=== PATIENT | female | born 1955 | race Caucasian/White ===

== ENCOUNTER 2020-04-06 10:06 | Outpatient (REF) | payer MEDICARE, SELFPAY ==
[2020-04-06 11:14] LABS: MANUAL DIFF FLAG NO
[2020-04-06 11:26] LABS: Estimated Average Glucose 114 mg/dL; Hemoglobin A1c % 5.6 %
[2020-04-06 11:32] LABS: Basophils Percent Auto 0.4 % (0-2); Eosinophils Absolute Auto 0.2 X10*3/uL (0.0-0.4); Eosinophils Percent Auto 2.2 % (0-4); Hematocrit 38.2 % (37-47); Hemoglobin 12.1 g/dl (12.0-16.0); INTERNATIONAL NORM RATIO 1.8 (0.9-1.1); Imm Gran Abs Auto 0.02 X10*3/uL (0.00-0.03); Imm Gran Pct Auto 0.3 % (0.0-0.4); Mean Corpuscular HGB Conc 31.7 g/dl (31.0-35.0); Mean Corpuscular Hemoglobin 26.9 pg (27.0-33.0); Mean Corpuscular Volume 85.1 fL (80-98); Mean Platelet Volume 9.8 fL (9.4-12.3); Monocytes Absolute Auto 0.6 X10*3/uL (0.1-1.2); Monocytes Percent Auto 8.2 % (2-11); Neutrophils Absolute Auto 4.5 X10*3/uL (2.0-8.3); Neutrophils Percent Auto 61.9 % (45-73); Platelet Count 321 X10*3/uL (160-400); Prothrombin Time 21.7 SEC (10.8-13.0); Red Blood Count 4.49 X10*6/uL (4.20-5.50); Red Cell Distribution Width 14.2 % (11.0-16.0); White Blood Count 7.3 X10*3/uL (4.8-10.8)
[2020-04-06 11:44] LABS: Alanine Aminotransferase 19 U/L (0-31); Alkaline Phosphatase 107 U/L (39-117); Anion Gap 13 (12-20); Aspartate Amino Transferase 20 U/L (5-31); Bilirubin Total 0.7 mg/dL (0.0-1.0); Blood Urea Nitrogen 16 mg/dL (9-16); Calcium 8.7 mg/dL (8.4-10.2); Carbon Dioxide 28 mmol/L (22-29); Chloride 106 mmol/L (96-108); Cholesterol 192 mg/dL; Estimated Glomerular Filt Rate > 60; Glucose Fasting 111 mg/dL (60-99); HDL Cholesterol 57 mg/dL; LDL Cholesterol Calculated 101 mg/dl; Sodium 143 mmol/L (135-145); Total Protein 7.2 g/dL (6.5-8.0); Triglycerides 172 mg/dL
[2020-04-06 11:56] LABS: Thyroid Stimulating Hormone 0.62 mIU/mL (0.32-4.0)
[2020-04-07 20:32] LABS: Calcium (PTHI) 8.7 mg/dL (8.6-10.4); PTHI 74 pg/mL (14-64)
[2020-04-12 12:52] LABS: Vitamin D 25-OH, D2 <4 ng/mL; Vitamin D 25-OH, D3 34 ng/mL; Vitamin D 25-OH, Total 34 ng/mL (30-100)
== END 2020-04-06 10:07 | disposition home or self-care (01) ==
LOC: HO.HMGCLDS 10:06
PROVIDERS: PCP Internal Medicine; Visit Provider Internal Medicine
DX: Z00.00 Encounter for general adult medical examination without abnormal findings (principal); R73.9 Hyperglycemia, unspecified; E21.3 Hyperparathyroidism, unspecified; I25.10 Atherosclerotic heart disease of native coronary artery without angina pectoris; E78.5 Hyperlipidemia, unspecified
CPT/HCPCS: 36415; 80053; 80061; 82306; 83036; 83970; 84443; 85025; 85610

== ENCOUNTER 2020-04-12 08:35 | Outpatient (REF) | payer MEDICARE, SELFPAY ==
--- NOTE | 2020-04-12 08:39 | MM_ITS ---
EXAMINATION: BONE DENSITOMETRY CLINICAL INDICATION: Asymptomatic menopausal state. COMPARISON: This is the patient's baseline examination. TECHNIQUE: Using a [employer] [facility] DXA System (software version: 13.1) manufactured by [employer], dual-energy x-ray absorptiometry was performed of the lumbar spine and left hip. The images are of good technical quality. Summary results are attached. FINDINGS: AP SPINE L1-L4: BMD 1.183 g/cm2, Z-score 0.5, T-score 0.0, normal. LEFT FEMUR, NECK: BMD 0.895 g/cm2, Z-score -0.3, T-score -1.0, normal. LEFT FEMUR, TOTAL: BMD 1.021 g/cm2, Z-score 0.5, T-score 0.1, normal. IDENTIFIED RISK FACTORS: Menopause. HISTORY OF FRACTURE: None listed. MEDICATIONS: Calcium. MM/XR DEXA axial skeleton IMPRESSION: 1. DIAGNOSIS: Normal bone density based on the lowest T-score value of -1.0 in the femoral neck applying World Health Organization criteria. 2. 10-YEAR FRACTURE RISK PREDICTION, FRAX: According to current guidelines FRAX assessment should be performed on patients in osteopenia bone density category. 3. Treatment Recommendations: NOF guidelines recommend consideration for treatment in postmenopausal women and men age 50 and older presenting with the following: -A hip or vertebral (clinical or morphometric) fracture. -T-score less than or equal to -2.5 at the femoral neck or spine after appropriate evaluation to exclude secondary causes. -Low bone mass at the hip or spine and a 10-year fracture probability by FRAX of greater than or equal to 3% for hip fracture or greater than or equal to 20% for major osteoporotic fracture based on the [place] adapted WHO algorithm. 4. Other Recommendations: All treatment decisions require clinical judgment and consideration of individual patient factors, including patient preferences, comorbidities, previous drug use, risk factors not captured in the FRAX model (e.g. frailty, falls, vitamin D deficiency, increased bone turnover, interval significant decline in bone density) and possible under or overestimation of fracture risk by FRAX. FUTURE SCAN RECOMMENDATION: People with diagnosed cases of osteoporosis or at high risk for fracture should have regular bone mineral density tests. For patients eligible for Medicare, routine testing is allowed once every 2 years. The testing frequency can be increased to one year for patients who have rapidly progressing disease, those who are receiving or discontinuing medical therapy to restore bone mass, or have additional risk factors.
== END 2020-04-12 08:36 | disposition home or self-care (01) ==
LOC: HO.MAMMO 08:35
PROVIDERS: PCP Internal Medicine; Visit Provider Internal Medicine
DX: Z78.0 Asymptomatic menopausal state (principal)
CPT/HCPCS: 77080

== ENCOUNTER 2020-04-20 10:45 | Outpatient (REF) | payer MEDICARE, SELFPAY ==
[2020-04-20 14:57] LABS: INTERNATIONAL NORM RATIO 1.9 (0.9-1.1); Prothrombin Time 22.9 SEC (10.8-13.0)
== END 2020-04-20 10:46 | disposition home or self-care (01) ==
LOC: HO.HMGCLDS 10:45
PROVIDERS: PCP Internal Medicine; Visit Provider Internal Medicine
DX: Z13.9 Encounter for screening, unspecified (principal)
CPT/HCPCS: 36415; 85610

== ENCOUNTER → 2020-04-25 12:40 | Outpatient (BNVA) | payer MEDICARE, SELFPAY | PROVIDERS: PCP Internal Medicine; Visit Provider Internal Medicine Cardiovascular Disease | DX: I25.10 Atherosclerotic heart disease of native coronary artery without angina pectoris (principal); E21.3 Hyperparathyroidism, unspecified; R73.9 Hyperglycemia, unspecified; Z79.01 Long term (current) use of anticoagulants; Z79.82 Long term (current) use of aspirin; Z79.899 Other long term (current) drug therapy; Z95.2 Presence of prosthetic heart valve; Z95.5 Presence of coronary angioplasty implant and graft | CPT/HCPCS: 93005; 99202 ==

== ENCOUNTER → 2020-05-11 12:48 | Outpatient (REF) | payer MEDICARE, SELFPAY ==
--- NOTE | 2020-05-11 12:50 | CA_ITS ---
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 Normal LV systolic function with mild LVH with impaired relaxation filling pattern and increase filling pressures 2. At least moderately dilated left atrium 3. Mechanical aortic valve in place with elevated mean gradient of 31 mm of mercury suggestive of patient prosthesis mismatch 4. Severe mitral annular calcification with possible mild mitral stenosis 5. [id number] elevation of right ventricular systolic pressure 6. No pericardial effusion Findings Left Ventricle Normal left ventricular size and systolic function. There is mildly increased left ventricular wall thickness. The visually estimated ejection fraction is between 65-70%. Spectral Doppler is indicative of an impaired relaxation filling pattern. Elevated filling pressures. Right Ventricle Normal right ventricular cavity size and systolic function. Atria The left atrium is moderately dilated. There is lipomatous hypertrophy of the interatrial septum. There is no evidence of interatrial shunt. The right atrium is mildly dilated. Aortic Valve A mechanical prosthetic aortic valve is present. The prosthetic aortic valve appears to be functioning abnormally. The peak aortic gradient is 49 mmHg.The mean gradient is 31 mmHg. There is no aortic valve regurgitation. the mechanical valve in aortic position is well seated without abnormal rocking motion. Leaflets are not well visualized. The aortic ejection time is within normal limits, with increased mean gradient across aortic valve 31 mm Hg is consistent with patient prosthesis mismatch Mitral Valve There is moderate anterior and severe posterior mitral leaflet thickening. There is severe mitral annular calcification. There is trace mitral valve regurgitation. Mild mitral stenosis cannot be entirely ruled out Tricuspid Valve Normal tricuspid valve structure. There is mild to moderate tricuspid valve regurgitation. Normal right atrial pressure. Mild to moderate pulmonary hypertension is present. Great Vessels All visible segments of the aorta are normal in size. The pulmonary artery was not well visualized. Venous The inferior vena cava is normal in size and collapses greater than 50% with inspiration. Pericardium/Pleural There is no evidence of pericardial effusion. Prior Study Comparison No prior study available for comparison. Measurements 2D Linear Measurements IVSd: 1.17 0.6-0.9/0.6-1.0 cm LVIDd: 4.61 3.9-5.3/4.2-5.9 cm LVIDd Index: 2.15 2.4-3.2/2.2-3.1 cm/m2 LVIDs: 2.66 2.0-3.6 cm LVPWd: 1.25 0.7-1.1 cm LA Diam: 4.90 2.7-3.8/3.0-4.0 cm LAIDs Index: 2.29 1.5-2.3 cm/m2 LV Mass: 259.44 67-162/88-224 g LV Mass Index: 121.23 43-95/49-115 g/m2 LVOT Diam: 1.90 3.0+(-)1.3 cm 2D Systolic Function EF 4C: 62.10 >55% EF 2C: 73.60 >55% EF BiP: 69.00 >55% Mitral Valve MV VTI: 0.52 MV Pk Binu: 1.61 MV Mn Binu: 0.95 MV Pk Grad: 10.00 MV Mn Grad: 4.00 MV Pk E: 1.41 MV PK A: 1.49 MV Decel Time: 462.00 E/A: 0.90 E'Lateral: 5.33 E'Medial: 5.66 E/E' Med: 24.90 E/E' Lat: 26.50 PHT: 118.00 MVA PHT: 1.86 MVA Continuity: 1.86 Decel [place]: 3.39 Aortic Valve AoV Pk Binu: 3.50 AoV Mn Binu: 2.58 AoV VTI: 0.91 AoV Pk Grad: 49.00 Aov Mn Grad: 31.00 WILLI Cont.VTI: 1.07 LVOT LVOT Pk Binu: 1.38 LVOT Mn Binu: 0.99 LVOT VTI: 0.34 LVOT Pk Grad: 8.00 LVOT Mn Grad: 4.00 LVOT Diam: 1.90 LVOT Area: 2.84 Diastolic Function MV Pk E: 1.41 MV Pk A: 1.49 E/A: 0.90 E'Medial: 5.66 E/E' Med: 24.90 E' Laterial: 5.33 E/E' Lat: 26.50 Tricuspid Valve TR Pk Binu: 3.28 TR Pk Grad: 43.00 RA Press: 3.00 RVSP: 46.00 Great Vessels Aorta Ao Asc: 3.00 2.1-3.4 cm Ao Arch: 3.10 Updated in Other Vendor System with Status of Final Carlos Salazar MD electronically signed on 05/11/2020 5:54:38 PM with status of Final
== END ==
LOC: HO.CARD 12:48
PROVIDERS: Visit Provider Internal Medicine Cardiovascular Disease
DX: Z95.2 Presence of prosthetic heart valve (principal)
CPT/HCPCS: 85610; 93306; 99201; Q9957

== ENCOUNTER → 2020-05-16 14:13 | Outpatient (BNVA) | payer MEDICARE, SELFPAY | PROVIDERS: PCP Internal Medicine; Visit Provider Internal Medicine | DX: Z95.2 Presence of prosthetic heart valve (principal); Z51.81 Encounter for therapeutic drug level monitoring; Z79.01 Long term (current) use of anticoagulants | CPT/HCPCS: 85610; 99211 ==

== ENCOUNTER → 2020-05-23 08:48 | Outpatient (BNVA) | payer MEDICARE, SELFPAY | PROVIDERS: PCP Internal Medicine; Visit Provider Internal Medicine | DX: Z95.2 Presence of prosthetic heart valve (principal); Z51.81 Encounter for therapeutic drug level monitoring; Z79.01 Long term (current) use of anticoagulants | CPT/HCPCS: 85610; 99211 ==

== ENCOUNTER → 2020-05-31 09:35 | Outpatient (BNVA) | payer MEDICARE, SELFPAY | PROVIDERS: PCP Internal Medicine; Visit Provider Internal Medicine | DX: Z95.2 Presence of prosthetic heart valve (principal); Z79.01 Long term (current) use of anticoagulants; Z51.81 Encounter for therapeutic drug level monitoring | CPT/HCPCS: 85610; 99211 ==

== ENCOUNTER → 2020-06-14 09:37 | Outpatient (BNVA) | payer MEDICARE, SELFPAY | PROVIDERS: PCP Internal Medicine; Visit Provider Internal Medicine | DX: Z95.2 Presence of prosthetic heart valve (principal); Z51.81 Encounter for therapeutic drug level monitoring; Z79.01 Long term (current) use of anticoagulants | CPT/HCPCS: 85610; 99211 ==

== ENCOUNTER → 2020-06-29 09:57 | Outpatient (BNVA) | payer MEDICARE, SELFPAY | PROVIDERS: PCP Internal Medicine; Visit Provider Internal Medicine | DX: Z95.2 Presence of prosthetic heart valve (principal); Z51.81 Encounter for therapeutic drug level monitoring; Z79.01 Long term (current) use of anticoagulants | CPT/HCPCS: 85610; 99211 ==

== ENCOUNTER → 2020-07-13 09:43 | Outpatient (BNVA) | payer MEDICARE, SELFPAY | PROVIDERS: PCP Internal Medicine; Visit Provider Internal Medicine | DX: Z95.2 Presence of prosthetic heart valve (principal); Z51.81 Encounter for therapeutic drug level monitoring; Z79.01 Long term (current) use of anticoagulants | CPT/HCPCS: 85610; 99211 ==

== ENCOUNTER → 2020-07-27 10:13 | Outpatient (BNVA) | payer MEDICARE, SELFPAY | PROVIDERS: PCP Internal Medicine; Visit Provider Internal Medicine | DX: Z95.2 Presence of prosthetic heart valve (principal); Z51.81 Encounter for therapeutic drug level monitoring; Z79.01 Long term (current) use of anticoagulants | CPT/HCPCS: 85610; 99211 ==

== ENCOUNTER → 2020-08-17 09:50 | Outpatient (BNVA) | payer MEDICARE, SELFPAY | PROVIDERS: PCP Internal Medicine; Visit Provider Internal Medicine | DX: Z95.2 Presence of prosthetic heart valve (principal); Z51.81 Encounter for therapeutic drug level monitoring; Z79.01 Long term (current) use of anticoagulants | CPT/HCPCS: 85610; 99211 ==

== ENCOUNTER → 2020-08-31 10:31 | Outpatient (BNVA) | payer MEDICARE, SELFPAY | PROVIDERS: PCP Internal Medicine; Visit Provider Internal Medicine Cardiovascular Disease | DX: Z79.01 Long term (current) use of anticoagulants (principal); Z95.2 Presence of prosthetic heart valve; I25.10 Atherosclerotic heart disease of native coronary artery without angina pectoris | CPT/HCPCS: 99212 ==

== ENCOUNTER → 2020-09-14 09:54 | Outpatient (BNVA) | payer MEDICARE, SELFPAY | PROVIDERS: PCP Internal Medicine; Visit Provider Internal Medicine | DX: Z95.2 Presence of prosthetic heart valve (principal); Z51.81 Encounter for therapeutic drug level monitoring; Z79.01 Long term (current) use of anticoagulants | CPT/HCPCS: 85610; 99211 ==

== ENCOUNTER → 2020-10-12 09:44 | Outpatient (BNVA) | payer MEDICARE, SELFPAY | PROVIDERS: PCP Internal Medicine; Visit Provider Internal Medicine | DX: Z95.2 Presence of prosthetic heart valve (principal); Z51.81 Encounter for therapeutic drug level monitoring; Z79.01 Long term (current) use of anticoagulants | CPT/HCPCS: 85610; 99211 ==

== ENCOUNTER → 2020-11-16 09:51 | Outpatient (BNVA) | payer MEDICARE, SELFPAY | PROVIDERS: PCP Internal Medicine; Visit Provider Internal Medicine | DX: Z95.2 Presence of prosthetic heart valve (principal); Z51.81 Encounter for therapeutic drug level monitoring; Z79.01 Long term (current) use of anticoagulants | CPT/HCPCS: 85610; 99211 ==

== ENCOUNTER → 2020-11-25 09:51 | Outpatient (BNVA) | payer MEDICARE, SELFPAY | PROVIDERS: PCP Internal Medicine; Visit Provider Internal Medicine | DX: Z95.2 Presence of prosthetic heart valve (principal); Z51.81 Encounter for therapeutic drug level monitoring; Z79.01 Long term (current) use of anticoagulants | CPT/HCPCS: 85610; 99211 ==

== ENCOUNTER → 2020-12-14 09:43 | Outpatient (BNVA) | payer MEDICARE, SELFPAY | PROVIDERS: PCP Internal Medicine; Visit Provider Internal Medicine | DX: Z95.2 Presence of prosthetic heart valve (principal); Z51.81 Encounter for therapeutic drug level monitoring; Z79.01 Long term (current) use of anticoagulants | CPT/HCPCS: 85610; 99211 ==

== ENCOUNTER → 2021-01-11 09:11 | Outpatient (BNVA) | payer MEDICARE, SELFPAY | PROVIDERS: PCP Internal Medicine; Visit Provider Internal Medicine | DX: Z95.2 Presence of prosthetic heart valve (principal); Z51.81 Encounter for therapeutic drug level monitoring; Z79.01 Long term (current) use of anticoagulants | CPT/HCPCS: 85610; 99211 ==

== ENCOUNTER → 2021-01-25 09:28 | Outpatient (BNVA) | payer MEDICARE, SELFPAY | PROVIDERS: PCP Internal Medicine; Visit Provider Internal Medicine | DX: Z95.2 Presence of prosthetic heart valve (principal); Z51.81 Encounter for therapeutic drug level monitoring; Z79.01 Long term (current) use of anticoagulants | CPT/HCPCS: 85610; 99211 ==

== ENCOUNTER → 2021-02-21 09:38 | Outpatient (BNVA) | payer MEDICARE, SELFPAY | PROVIDERS: PCP Internal Medicine; Visit Provider Internal Medicine | DX: Z95.2 Presence of prosthetic heart valve (principal); Z51.81 Encounter for therapeutic drug level monitoring; Z79.01 Long term (current) use of anticoagulants | CPT/HCPCS: 85610; 99211 ==

== ENCOUNTER → 2021-03-21 09:45 | Outpatient (BNVA) | payer MEDICARE, SELFPAY | PROVIDERS: PCP Internal Medicine; Visit Provider Internal Medicine | DX: Z95.2 Presence of prosthetic heart valve (principal); Z51.81 Encounter for therapeutic drug level monitoring; Z79.01 Long term (current) use of anticoagulants | CPT/HCPCS: 85610; 99211 ==

== ENCOUNTER → 2021-04-18 09:49 | Outpatient (BNVA) | payer MEDICARE, SELFPAY | PROVIDERS: PCP Internal Medicine; Visit Provider Internal Medicine | DX: Z95.2 Presence of prosthetic heart valve (principal); Z51.81 Encounter for therapeutic drug level monitoring; Z79.01 Long term (current) use of anticoagulants | CPT/HCPCS: 85610; 99211 ==

== ENCOUNTER → 2021-05-17 09:30 | Outpatient (BNVA) | payer MEDICARE, SELFPAY | PROVIDERS: PCP Internal Medicine; Visit Provider Internal Medicine | DX: Z95.2 Presence of prosthetic heart valve (principal); Z51.81 Encounter for therapeutic drug level monitoring; Z79.01 Long term (current) use of anticoagulants | CPT/HCPCS: 85610; 99211 ==

== ENCOUNTER 2021-05-22 10:14 | Outpatient (REF) | payer MEDICARE, SELFPAY ==
[2021-05-22 12:05] LABS: Hematocrit 39.1 % (37.0-47.0); Hemoglobin 12.1 g/dl (12.0-16.0); Mean Corpuscular HGB Conc 30.9 g/dl (31.0-35.0); Mean Corpuscular Hemoglobin 26.4 pg (27.0-33.0); Mean Corpuscular Volume 85.4 fL (80.0-98.0); Mean Platelet Volume 9.4 fL (9.4-12.3); Platelet Count 281 X10*3/uL (160-400); Red Blood Count 4.58 X10*6/uL (4.20-5.50); Red Cell Distribution Width 14.2 % (11.0-16.0); White Blood Count 9.5 X10*3/uL (4.8-10.8)
== END 2021-05-22 10:15 | disposition home or self-care (01) ==
LOC: HO.LAB 10:14
PROVIDERS: PCP Internal Medicine; Referring Provider Internal Medicine; Visit Provider Internal Medicine Cardiovascular Disease
DX: R06.00 Dyspnea, unspecified (principal)
CPT/HCPCS: 36415; 85027

== ENCOUNTER → 2021-05-23 11:20 | Outpatient (REF) | payer MEDICARE, SELFPAY ==
--- NOTE | 2021-05-23 11:25 | CA_ITS ---
Transthoracic Echocardiogram Patient (Last, First, Middle): Francisca Aguero M Gender: Female Date of : 1955 Age: 65 Procedure Date: 05/23/2021 Procedure Type: Transthoracic Echocardiogram Location: OP Height: 165.1 cm Weight: 108.41 kg BSA: 2.13 m2 Heart Rate: bpm BP: 126 / 82 mmHg Crew Foreman: DSGuy Referring MD: You Prince MD Symptoms: R06.00 - Dyspnea, unspecified Conclusions: - Normal left ventricular size and systolic function. - There is moderately increased left ventricular wall thickness. - Filling pressures are indeterminate. - Normal right ventricular cavity size and systolic function. - LA is mild to moderately dilated. - A mechanical prosthetic aortic valve is present. The peak aortic velocity is 3.49 m/s. The mean gradient is 27 mmHg. The aortic valve area is 1.29 cm2. DVI 0.38, EOAi for aortic valve is 0.59. The contour of the aortic valve CW is not rounded. There is no valve dysfunction and these findings are consistent with patient prosthesis mismatch. - Mild pulmonary hypertension is present. Findings Left Ventricle Normal left ventricular size and systolic function. There is moderately increased left ventricular wall thickness. The visually estimated ejection fraction is between 55-60%. There is no evidence of regional wall motion abnormalities. Abnormal diastolic function is noted. Spectral Doppler is indicative of a pseudonormal filling pattern. Filling pressures are indeterminate. Right Ventricle Normal right ventricular cavity size and systolic function. Atria LA is mild to moderately dilated. The right atrium is normal in size. Aortic Valve A mechanical prosthetic aortic valve is present. The peak aortic velocity is 3.49 m/s. The mean gradient is 27 mmHg. The aortic valve area is 1.29 cm2. DVI 0.38, EOAi for aortic valve is 0.59. The contour of the aortic valve CW is not rounded. There is no valve dysfunction and these findings are consistent with patient prosthesis mismatch. Mitral Valve There is severe mitral annular calcification. There is mild mitral valve regurgitation. There is mild mitral valve stenosis. Pulmonic Valve Normal pulmonic valve structure and function. There is trace pulmonic valve regurgitation. Tricuspid Valve Normal tricuspid valve structure and function. There is trace tricuspid valve regurgitation. Normal right atrial pressure. Mild pulmonary hypertension is present. Great Vessels All visible segments of the aorta are normal in size. The visualized portions of the pulmonary artery and branches are normal. Venous The inferior vena cava is normal in size and collapses greater than 50% with inspiration. Pericardium/Pleural There is no evidence of pericardial effusion. Prior Study Comparison No significant change compared to prior study dated: 05/11/2020. Measurements 2D Linear Measurements IVSd: 1.30 0.6-0.9/0.6-1.0 cm LVIDd: 4.65 3.9-5.3/4.2-5.9 cm LVIDd Index: 2.18 2.4-3.2/2.2-3.1 cm/m2 LVIDs: 2.94 2.0-3.6 cm LVPWd: 1.23 0.7-1.1 cm LA Diam: 5.30 2.7-3.8/3.0-4.0 cm LAIDs Index: 2.49 1.5-2.3 cm/m2 LV Mass: 280.39 67-162/88-224 g LV Mass Index: 131.64 43-95/49-115 g/m2 LVOT Diam: 2.00 3.0+(-)1.3 cm Mitral Valve MV VTI: 0.58 MV Pk Binu: 1.68 MV Mn Binu: 1.03 MV Pk Grad: 11.00 MV Mn Grad: 5.00 MV Pk E: 1.78 MV PK A: 1.50 MV Decel Time: 297.00 E/A: 1.20 E'Lateral: 5.87 E'Medial: 4.68 E/E' Med: 38.00 E/E' Lat: 30.30 PHT: 87.00 MVA PHT: 2.53 MVA Continuity: 1.94 Decel [place]: 6.01 Aortic Valve AoV Pk Binu: 3.49 AoV Mn Binu: 2.36 AoV VTI: 0.88 AoV Pk Grad: 49.00 Aov Mn Grad: 27.00 WILLI Cont.VTI: 1.29 LVOT LVOT Pk Binu: 1.37 LVOT Mn Binu: 0.94 LVOT VTI: 0.36 LVOT Pk Grad: 8.00 LVOT Mn Grad: 4.00 LVOT Diam: 2.00 LVOT Area: 3.14 Diastolic Function MV Pk E: 1.78 MV Pk A: 1.50 E/A: 1.20 E'Medial: 4.68 E/E' Med: 38.00 E' Laterial: 5.87 E/E' Lat: 30.30 Right Ventricle TAPSE (mm): 2.07 TVS' Binu: 10.30 Tricuspid Valve TR Pk Binu: 3.00 TR Pk Grad: 36.00 RA Press: 3.00 RVSP: 40.00 Great Vessels Aorta Ao Asc: 3.10 2.1-3.4 cm Updated in Other Vendor System with Status of Final You Prince MD electronically signed on 05/24/2021 12:49:40 PM with status of Final
== END ==
LOC: HO.CARD 11:20
PROVIDERS: PCP Internal Medicine; Visit Provider Internal Medicine Cardiovascular Disease
DX: R06.00 Dyspnea, unspecified (principal); I25.10 Atherosclerotic heart disease of native coronary artery without angina pectoris; Z95.2 Presence of prosthetic heart valve
CPT/HCPCS: 93005; 93306; 99212

== ENCOUNTER 2021-05-25 10:17 | Outpatient (REF) | payer MEDICARE, SELFPAY ==
[2021-05-25 11:05] LABS: INTERNATIONAL NORM RATIO 2.7 (0.9-1.1); Prothrombin Time 30.9 SEC (9.9-13.0)
[2021-05-25 11:20] LABS: Anion Gap 13 (12-20); Blood Urea Nitrogen 18 mg/dL (9-16); Calcium 9.8 mg/dL (8.4-10.2); Carbon Dioxide 28 mmol/L (22-29); Chloride 104 mmol/L (96-108); Estimated Glomerular Filt Rate > 60; Glucose Random 108 mg/dL (60-115); Potassium 4.6 mmol/L (3.3-5.1); Sodium 140 mmol/L (135-145)
== END 2021-05-25 10:18 | disposition home or self-care (01) ==
LOC: HO.LAB 10:17
PROVIDERS: PCP Internal Medicine; Visit Provider Internal Medicine Cardiovascular Disease
DX: I20.0 Unstable angina (principal)
CPT/HCPCS: 36415; 80048; 85610

== ENCOUNTER 2021-06-07 09:42 | Outpatient (REF) | payer MEDICARE, SELFPAY ==
--- NOTE | ~2021-06-07 | XR_ITS ---
EXAMINATION: XR HIPS, BILATERAL XR SACROILIAC JOINTS CLINICAL INFORMATION: Bilateral pain. COMPARISON: None TECHNIQUE: The hips are imaged in AP and frog-lateral projections for a total of 4 views. The SI joints are imaged in 3 views. There are total of 7 views. FINDINGS: The bilateral hips show no fracture or dislocation or arthropathy. There is no joint narrowing or erosive change or chondrocalcinosis. The soft tissue planes are symmetric. The SI joints show no erosive change or ankylosis or subchondral sclerosis. There is no diastases. Mild inferior spurring is present left SI joint. There are degenerative changes lower lumbar spine with disc narrowing and asymmetric osteophyte L4-L5. There is a transitional vertebrae at lumbosacral junction with right hemisacralization and left tigre lumbarization. Lastly, findings of osteitis pubis are present with mild narrowing medial base and some chondral sclerosis both sides. XR/XR sacroiliac joint min 3V IMPRESSION: 1. Normal bilateral hips. 2. Mild spurring inferior left SI joint, otherwise unremarkable SI joints. 3. 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 Degenerative disc changes lower lumbar spine. 4. Osteitis pubis.
--- NOTE | ~2021-06-07 | XR_ITS ---
EXAMINATION: XR HIPS, BILATERAL XR SACROILIAC JOINTS CLINICAL INFORMATION: Bilateral pain. COMPARISON: None TECHNIQUE: The hips are imaged in AP and frog-lateral projections for a total of 4 views. The SI joints are imaged in 3 views. There are total of 7 views. FINDINGS: The bilateral hips show no fracture or dislocation or arthropathy. There is no joint narrowing or erosive change or chondrocalcinosis. The soft tissue planes are symmetric. The SI joints show no erosive change or ankylosis or subchondral sclerosis. There is no diastases. Mild inferior spurring is present left SI joint. There are degenerative changes lower lumbar spine with disc narrowing and asymmetric osteophyte L4-L5. There is a transitional vertebrae at lumbosacral junction with right hemisacralization and left tigre lumbarization. Lastly, findings of osteitis pubis are present with mild narrowing medial base and some chondral sclerosis both sides. XR/XR hips SOURAV min 3V IMPRESSION: 1. Normal bilateral hips. 2. Mild spurring inferior left SI joint, otherwise unremarkable SI joints. 3. 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 Degenerative disc changes lower lumbar spine. 4. Osteitis pubis.
== END 2021-06-07 09:43 | disposition home or self-care (01) ==
LOC: HO.HMGCX 09:42
PROVIDERS: Absent Provider Internal Medicine; PCP Internal Medicine; Visit Provider Internal Medicine
DX: M25.559 Pain in unspecified hip (principal); I25.10 Atherosclerotic heart disease of native coronary artery without angina pectoris; E78.5 Hyperlipidemia, unspecified; Z95.2 Presence of prosthetic heart valve; Z51.81 Encounter for therapeutic drug level monitoring; Z79.01 Long term (current) use of anticoagulants
CPT/HCPCS: 72202; 73522; 85610; 99211

== ENCOUNTER → 2021-06-14 09:42 | Outpatient (BNVA) | payer MEDICARE, SELFPAY | PROVIDERS: PCP Internal Medicine; Visit Provider Internal Medicine | DX: Z95.2 Presence of prosthetic heart valve (principal); Z51.81 Encounter for therapeutic drug level monitoring; Z79.01 Long term (current) use of anticoagulants | CPT/HCPCS: 85610; 99211 ==

== ENCOUNTER 2021-06-15 14:18 | Outpatient (REF) | payer MEDICARE, SELFPAY ==
--- NOTE | ~2021-06-15 | US_ITS ---
EXAMINATION: ULTRASOUND ARTERIAL DUPLEX UPPER EXTREMITY RIGHT CLINICAL INFORMATION: Right radial artery bruit. COMPARISON: None TECHNIQUE: Multiple 2-D grayscale and duplex Doppler sound images of the arteries of the right upper extremity were obtained. FINDINGS: Peak systolic arterial velocities are as follows: Proximal subclavian: 132 Mid subclavian: 16 Distal subclavian: 113 Axillary: 128 Proximal brachial 174 Mid brachial: 181 Distal brachial: 152 Radial: 172 Ulnar: 91 Normal arterial caliber is seen without aneurysmal dilatation. US/US arterial duplex UE RT IMPRESSION: No hemodynamically significant stenosis in the right upper extremity. No evidence for aneurysm.
== END 2021-06-15 14:19 | disposition home or self-care (01) ==
LOC: HO.US 14:18
PROVIDERS: PCP Internal Medicine; Referring Provider Internal Medicine; Visit Provider Nurse Practitioner Family
DX: R06.00 Dyspnea, unspecified (principal); I25.10 Atherosclerotic heart disease of native coronary artery without angina pectoris; R09.89 Other specified symptoms and signs involving the circulatory and respiratory systems; Z95.2 Presence of prosthetic heart valve; Z51.89 Encounter for other specified aftercare; Z98.890 Other specified postprocedural states
CPT/HCPCS: 93931; 99212

== ENCOUNTER → 2021-06-28 09:50 | Outpatient (BNVA) | payer MEDICARE, SELFPAY | PROVIDERS: PCP Internal Medicine; Visit Provider Internal Medicine | DX: Z95.2 Presence of prosthetic heart valve (principal); Z51.81 Encounter for therapeutic drug level monitoring; Z79.01 Long term (current) use of anticoagulants | CPT/HCPCS: 85610; 99211 ==

== ENCOUNTER → 2021-07-19 09:41 | Outpatient (BNVA) | payer MEDICARE, SELFPAY | PROVIDERS: PCP Internal Medicine; Visit Provider Internal Medicine | DX: Z95.2 Presence of prosthetic heart valve (principal); Z51.81 Encounter for therapeutic drug level monitoring; Z79.01 Long term (current) use of anticoagulants | CPT/HCPCS: 85610; 99211 ==

== ENCOUNTER → 2021-07-24 08:53 | Outpatient (BNVA) | payer MEDICARE, SELFPAY | PROVIDERS: PCP Internal Medicine; Referring Provider Internal Medicine; Visit Provider Internal Medicine Cardiovascular Disease | DX: I25.10 Atherosclerotic heart disease of native coronary artery without angina pectoris (principal); Z95.2 Presence of prosthetic heart valve; Z98.890 Other specified postprocedural states | CPT/HCPCS: 99212 ==

== ENCOUNTER → 2021-08-16 09:38 | Outpatient (BNVA) | payer MEDICARE, SELFPAY | PROVIDERS: PCP Internal Medicine; Visit Provider Internal Medicine | DX: Z95.2 Presence of prosthetic heart valve (principal); Z51.81 Encounter for therapeutic drug level monitoring; Z79.01 Long term (current) use of anticoagulants | CPT/HCPCS: 85610; 99211 ==

== ENCOUNTER → 2021-09-13 09:45 | Outpatient (BNVA) | payer MEDICARE, SELFPAY | PROVIDERS: PCP Internal Medicine; Visit Provider Internal Medicine | DX: Z95.2 Presence of prosthetic heart valve (principal); Z51.81 Encounter for therapeutic drug level monitoring; Z79.01 Long term (current) use of anticoagulants | CPT/HCPCS: 85610; 99211 ==

== ENCOUNTER → 2021-09-27 09:41 | Outpatient (BNVA) | payer MEDICARE, SELFPAY | PROVIDERS: PCP Internal Medicine; Visit Provider Internal Medicine | DX: Z95.2 Presence of prosthetic heart valve (principal); Z79.01 Long term (current) use of anticoagulants; Z51.81 Encounter for therapeutic drug level monitoring | CPT/HCPCS: 85610; 99211 ==

== ENCOUNTER → 2021-10-11 09:44 | Outpatient (BNVA) | payer MEDICARE, SELFPAY | PROVIDERS: PCP Internal Medicine; Visit Provider Internal Medicine | DX: Z95.2 Presence of prosthetic heart valve (principal); Z79.01 Long term (current) use of anticoagulants; Z51.81 Encounter for therapeutic drug level monitoring | CPT/HCPCS: 85610; 99211 ==

== ENCOUNTER → 2021-10-25 09:44 | Outpatient (BNVA) | payer MEDICARE, SELFPAY | PROVIDERS: PCP Internal Medicine; Visit Provider Internal Medicine | DX: Z95.2 Presence of prosthetic heart valve (principal); Z79.01 Long term (current) use of anticoagulants; Z51.81 Encounter for therapeutic drug level monitoring | CPT/HCPCS: 85610; 99211 ==

== ENCOUNTER → 2021-11-03 09:47 | Outpatient (BNVA) | payer MEDICARE, SELFPAY | PROVIDERS: PCP Internal Medicine; Visit Provider Internal Medicine | DX: Z95.2 Presence of prosthetic heart valve (principal); Z79.01 Long term (current) use of anticoagulants; Z51.81 Encounter for therapeutic drug level monitoring | CPT/HCPCS: 85610; 99211 ==

== ENCOUNTER → 2021-11-15 09:39 | Outpatient (BNVA) | payer MEDICARE, SELFPAY | PROVIDERS: PCP Internal Medicine; Visit Provider Internal Medicine | DX: Z95.2 Presence of prosthetic heart valve (principal); Z79.01 Long term (current) use of anticoagulants; Z51.81 Encounter for therapeutic drug level monitoring | CPT/HCPCS: 85610; 99211 ==

== ENCOUNTER → 2021-11-22 09:41 | Outpatient (BNVA) | payer MEDICARE, SELFPAY | PROVIDERS: PCP Internal Medicine; Visit Provider Internal Medicine | DX: Z95.2 Presence of prosthetic heart valve (principal); Z79.01 Long term (current) use of anticoagulants; Z51.81 Encounter for therapeutic drug level monitoring | CPT/HCPCS: 85610; 99211 ==

== ENCOUNTER → 2021-12-04 09:48 | Outpatient (BNVA) | payer MEDICARE, SELFPAY | PROVIDERS: PCP Internal Medicine; Visit Provider Internal Medicine | DX: Z95.2 Presence of prosthetic heart valve (principal); Z79.01 Long term (current) use of anticoagulants; Z51.81 Encounter for therapeutic drug level monitoring | CPT/HCPCS: 85610; 99211 ==

== ENCOUNTER → 2021-12-08 09:47 | Outpatient (BNVA) | payer MEDICARE, SELFPAY | PROVIDERS: PCP Internal Medicine; Visit Provider Internal Medicine | DX: Z95.2 Presence of prosthetic heart valve (principal); Z51.81 Encounter for therapeutic drug level monitoring; Z79.01 Long term (current) use of anticoagulants | CPT/HCPCS: 85610; 99211 ==

== ENCOUNTER → 2021-12-20 09:44 | Outpatient (BNVA) | payer MEDICARE, SELFPAY | PROVIDERS: PCP Internal Medicine; Visit Provider Internal Medicine | DX: Z95.2 Presence of prosthetic heart valve (principal); Z51.81 Encounter for therapeutic drug level monitoring; Z79.01 Long term (current) use of anticoagulants | CPT/HCPCS: 85610; 99211 ==

== ENCOUNTER → 2022-01-10 09:39 | Outpatient (BNVA) | payer MEDICARE, SELFPAY | PROVIDERS: PCP Internal Medicine; Visit Provider Internal Medicine | DX: Z95.2 Presence of prosthetic heart valve (principal); Z79.01 Long term (current) use of anticoagulants; Z51.81 Encounter for therapeutic drug level monitoring | CPT/HCPCS: 85610; 99211 ==

== ENCOUNTER → 2022-01-24 09:41 | Outpatient (BNVA) | payer MEDICARE, SELFPAY | PROVIDERS: PCP Internal Medicine; Visit Provider Internal Medicine | DX: Z95.2 Presence of prosthetic heart valve (principal); Z51.81 Encounter for therapeutic drug level monitoring; Z79.01 Long term (current) use of anticoagulants | CPT/HCPCS: 85610; 99211 ==

== ENCOUNTER → 2022-02-14 09:52 | Outpatient (BNVA) | payer MEDICARE, SELFPAY | PROVIDERS: PCP Internal Medicine; Visit Provider Internal Medicine | DX: Z95.2 Presence of prosthetic heart valve (principal); Z79.01 Long term (current) use of anticoagulants; Z51.81 Encounter for therapeutic drug level monitoring | CPT/HCPCS: 85610; 99211 ==

== ENCOUNTER → 2022-03-07 09:43 | Outpatient (BNVA) | payer MEDICARE, SELFPAY | PROVIDERS: PCP Internal Medicine; Visit Provider Internal Medicine | DX: Z95.2 Presence of prosthetic heart valve (principal); Z79.01 Long term (current) use of anticoagulants; Z51.81 Encounter for therapeutic drug level monitoring | CPT/HCPCS: 85610; 99211 ==

== ENCOUNTER → 2022-04-04 09:45 | Outpatient (BNVA) | payer MEDICARE, SELFPAY | PROVIDERS: PCP Internal Medicine; Visit Provider Internal Medicine | DX: Z95.2 Presence of prosthetic heart valve (principal); Z79.01 Long term (current) use of anticoagulants; Z51.81 Encounter for therapeutic drug level monitoring | CPT/HCPCS: 85610; 99211 ==

== ENCOUNTER → 2022-04-17 09:35 | Outpatient (BNVA) | payer MEDICARE, SELFPAY | PROVIDERS: PCP Internal Medicine; Visit Provider Internal Medicine | DX: Z95.2 Presence of prosthetic heart valve (principal); Z79.01 Long term (current) use of anticoagulants; Z51.81 Encounter for therapeutic drug level monitoring | CPT/HCPCS: 85610; 99211 ==

== ENCOUNTER → 2022-05-16 09:45 | Outpatient (BNVA) | payer MEDICARE, SELFPAY | PROVIDERS: PCP Internal Medicine; Visit Provider Internal Medicine | DX: Z95.2 Presence of prosthetic heart valve (principal); Z79.01 Long term (current) use of anticoagulants; Z51.81 Encounter for therapeutic drug level monitoring | CPT/HCPCS: 85610; 99211 ==

== ENCOUNTER → 2022-06-13 09:44 | Outpatient (BNVA) | payer MEDICARE, SELFPAY | PROVIDERS: PCP Internal Medicine; Visit Provider Internal Medicine | DX: Z95.2 Presence of prosthetic heart valve (principal); Z79.01 Long term (current) use of anticoagulants; Z51.81 Encounter for therapeutic drug level monitoring | CPT/HCPCS: 85610; 99211 ==

== ENCOUNTER → 2022-07-16 08:51 | Outpatient (BNVA) | payer MEDICARE, SELFPAY | PROVIDERS: PCP Internal Medicine; Referring Provider Internal Medicine; Visit Provider Internal Medicine Cardiovascular Disease | DX: I20.8 Other forms of angina pectoris (principal); Z95.2 Presence of prosthetic heart valve; Z79.01 Long term (current) use of anticoagulants; Z79.02 Long term (current) use of antithrombotics/antiplatelets | CPT/HCPCS: 93005; 99212 ==

== ENCOUNTER → 2022-07-18 09:46 | Outpatient (BNVA) | payer MEDICARE, SELFPAY | PROVIDERS: PCP Internal Medicine; Visit Provider Internal Medicine | DX: Z95.2 Presence of prosthetic heart valve (principal); Z79.01 Long term (current) use of anticoagulants; Z51.81 Encounter for therapeutic drug level monitoring | CPT/HCPCS: 85610; 99211 ==

== ENCOUNTER → 2022-07-23 12:49 | Outpatient (REF) | payer MEDICARE, SELFPAY ==
--- NOTE | 2022-07-23 12:51 | CA_ITS ---
Transthoracic Echocardiogram Patient (Last, First, Middle): Francisca Aguero M Gender: Female Date of : 1955 Age: 66 Procedure Date: 07/23/2022 Procedure Type: Transthoracic Echocardiogram Location: OP Height: 165.1 cm Weight: 111.13 kg BSA: 2.16 m2 Heart Rate: 62 bpm BP: 118 / 72 mmHg Marble Polisher: TESS Referring MD: You Prince MD Client Specialist: You Prince MD Symptoms: Z95.2 - Presence of prosthetic heart valve Study Quality: Adequate w contrast ECG Rhythm: Sinus Conclusions: - Normal left ventricular cavity size. There is moderately increased left ventricular wall thickness. The left ventricular systolic function is hyperdynamic. The visually estimated ejection fraction is >70%. - The right ventricle was not well visualized. - A bioprosthetic aortic valve is present. The prosthetic aortic valve appears to be functioning abnormally. Findings Procedure Information Contrast agent, definity, is being given per protocol without apparent complications. Left Ventricle Normal left ventricular cavity size. There is moderately increased left ventricular wall thickness. The left ventricular systolic function is hyperdynamic. The visually estimated ejection fraction is >70%. There is no evidence of regional wall motion abnormalities. Diastolic function is indeterminate on the basis of available data. Right Ventricle The right ventricle was not well visualized. Atria The left atrium is mildly dilated. Aortic Valve A bioprosthetic aortic valve is present. The prosthetic aortic valve appears to be functioning abnormally. The peak aortic velocity is 3.64 m/s. The mean gradient is 28 mmHg. The aortic valve area is 1.10 cm2. There is no aortic valve regurgitation. The aortic valve CW doppler contour is not rounded. Patient prosthesis mismatch is present. The gradients are higher than before. Mitral Valve There is severe mitral annular calcification. There is mild mitral valve regurgitation. There is no mitral valve stenosis. Pulmonic Valve The pulmonic valve is likely normal. Tricuspid Valve Normal tricuspid valve structure and function. Normal right atrial pressure. There is no evidence of pulmonary hypertension. Great Vessels The aorta was not well visualized. The visualized portions of the pulmonary artery and branches are normal. Venous The inferior vena cava is normal in size and collapses greater than 50% with inspiration. Pericardium/Pleural There is no evidence of pericardial effusion. Prior Study Comparison Changes noted compared to prior study dated: 05/23/2021. Patient prosthesis mismatch is present. The gradients are higher than before. Measurements 2D Linear Measurements IVSd: 1.24 0.6-0.9/0.6-1.0 cm LVIDd: 4.38 3.9-5.3/4.2-5.9 cm LVIDd Index: 2.03 2.4-3.2/2.2-3.1 cm/m2 LVIDs: 2.56 2.0-3.6 cm LVPWd: 1.21 0.7-1.1 cm LA Diam: 4.60 2.7-3.8/3.0-4.0 cm LAIDs Index: 2.13 1.5-2.3 cm/m2 LV Mass: 243.97 67-162/88-224 g LV Mass Index: 112.95 43-95/49-115 g/m2 LVOT Diam: 1.90 3.0+(-)1.3 cm 2D Systolic Function EF 4C: 71.70 >55% EF 2C: 73.40 >55% EF BiP: 72.40 >55% Mitral Valve MV VTI: 0.52 MV Pk Binu: 1.59 MV Mn Binu: 0.93 MV Pk Grad: 10.00 MV Mn Grad: 4.00 MV Pk E: 1.55 MV PK A: 1.19 MV Decel Time: 378.00 E/A: 1.30 E'Lateral: 3.68 E'Medial: 4.35 E/E' Med: 35.60 E/E' Lat: 42.10 PHT: 111.00 MVA PHT: 1.98 MVA Continuity: 1.88 Decel [place]: 4.10 Aortic Valve AoV Pk Binu: 3.64 AoV Mn Binu: 2.49 AoV VTI: 0.86 AoV Pk Grad: 51.00 Aov Mn Grad: 28.00 WILLI Cont.VTI: 1.10 LVOT LVOT Pk Binu: 1.32 LVOT Mn Binu: 0.98 LVOT VTI: 0.35 LVOT Pk Grad: 7.00 LVOT Mn Grad: 4.00 LVOT Diam: 1.90 LVOT Area: 2.84 Diastolic Function MV Pk E: 1.55 MV Pk A: 1.19 E/A: 1.30 E'Medial: 4.35 E/E' Med: 35.60 E' Laterial: 3.68 E/E' Lat: 42.10 Right Ventricle TAPSE (mm): 14.60 TVS' Binu: 8.85 Tricuspid Valve TR Pk Binu: 2.79 TR Pk Grad: 31.00 RA Press: 3.00 RVSP: 34.00 Pulmonary Valve PV Pk Binu: 0.93 Peak PV Grad: 3.00 Updated in Other Vendor System with Status of Final You Prince MD electronically signed on 07/26/2022 6:50:46 PM with status of Final
== END ==
LOC: HO.CARD 12:49
PROVIDERS: PCP Internal Medicine; Visit Provider Internal Medicine Cardiovascular Disease
DX: Z95.2 Presence of prosthetic heart valve (principal)
CPT/HCPCS: 93306; Q9957

== ENCOUNTER → 2022-08-01 09:37 | Outpatient (BNVA) | payer MEDICARE, SELFPAY | PROVIDERS: PCP Internal Medicine; Visit Provider Internal Medicine | DX: Z95.2 Presence of prosthetic heart valve (principal); Z79.01 Long term (current) use of anticoagulants; Z51.81 Encounter for therapeutic drug level monitoring | CPT/HCPCS: 85610; 99211 ==

== ENCOUNTER → 2022-08-15 09:46 | Outpatient (BNVA) | payer MEDICARE, SELFPAY | PROVIDERS: PCP Internal Medicine; Visit Provider Internal Medicine | DX: Z95.2 Presence of prosthetic heart valve (principal); Z79.01 Long term (current) use of anticoagulants; Z51.81 Encounter for therapeutic drug level monitoring | CPT/HCPCS: 85610; 99211 ==

== ENCOUNTER → 2022-09-12 09:35 | Outpatient (BNVA) | payer MEDICARE, SELFPAY | PROVIDERS: PCP Internal Medicine; Visit Provider Internal Medicine | DX: Z95.2 Presence of prosthetic heart valve (principal); Z79.01 Long term (current) use of anticoagulants; Z51.81 Encounter for therapeutic drug level monitoring | CPT/HCPCS: 85610; 99211 ==

== ENCOUNTER → 2022-10-10 09:54 | Outpatient (BNVA) | payer MEDICARE, SELFPAY | PROVIDERS: PCP Internal Medicine; Visit Provider Internal Medicine | DX: Z95.2 Presence of prosthetic heart valve (principal); Z79.01 Long term (current) use of anticoagulants; Z51.81 Encounter for therapeutic drug level monitoring | CPT/HCPCS: 85610; 99211 ==

== ENCOUNTER → 2022-10-24 10:06 | Outpatient (BNVA) | payer MEDICARE, SELFPAY | PROVIDERS: PCP Internal Medicine; Visit Provider Internal Medicine | DX: Z95.2 Presence of prosthetic heart valve (principal); Z79.01 Long term (current) use of anticoagulants; Z51.81 Encounter for therapeutic drug level monitoring | CPT/HCPCS: 85610; 99211 ==

== ENCOUNTER → 2022-11-14 09:36 | Outpatient (BNVA) | payer MEDICARE, SELFPAY | PROVIDERS: PCP Internal Medicine; Visit Provider Internal Medicine | DX: Z95.2 Presence of prosthetic heart valve (principal); Z79.01 Long term (current) use of anticoagulants; Z51.81 Encounter for therapeutic drug level monitoring | CPT/HCPCS: 85610; 99211 ==

== ENCOUNTER → 2022-11-28 09:37 | Outpatient (BNVA) | payer MEDICARE, SELFPAY | PROVIDERS: PCP Internal Medicine; Visit Provider Internal Medicine | DX: Z95.2 Presence of prosthetic heart valve (principal); Z79.01 Long term (current) use of anticoagulants; Z51.81 Encounter for therapeutic drug level monitoring | CPT/HCPCS: 85610; 99211 ==

== ENCOUNTER → 2022-12-04 11:22 | Outpatient (BNVA) | payer MEDICARE, SELFPAY | PROVIDERS: PCP Internal Medicine; Visit Provider Internal Medicine | DX: Z95.2 Presence of prosthetic heart valve (principal); Z51.81 Encounter for therapeutic drug level monitoring; Z79.01 Long term (current) use of anticoagulants | CPT/HCPCS: 85610; 99211 ==

== ENCOUNTER → 2022-12-17 08:42 | Outpatient (BNVA) | payer MEDICARE, SELFPAY | PROVIDERS: PCP Internal Medicine; Visit Provider Internal Medicine | DX: R06.00 Dyspnea, unspecified (principal); I20.8 Other forms of angina pectoris; Z98.890 Other specified postprocedural states; Z95.2 Presence of prosthetic heart valve; Z51.81 Encounter for therapeutic drug level monitoring; Z79.01 Long term (current) use of anticoagulants | CPT/HCPCS: 85610; 99211; 99212 ==

== ENCOUNTER 2022-12-17 09:04 | Outpatient (AMB) | payer MEDICARE, SELFPAY ==
[2022-12-17 10:04] VITALS: BP 126/76; PULSE 73; BMI 43.3
--- NOTE | 2022-12-17 10:04 | MHC.OFFVIS ---
Intake Vital Signs 12/17/22 10:04 Height 5 ft 5 in Weight 260 lb 2.327 oz BMI 43.3 BP 126/76 Blood Pressure Location Lt brachial Pulse 73 Intake Visit Reasons: 5 mth fu Intake Note: 5 month feeling good Supply Clerk Required: No Allergies No Known Allergies Allergy (Verified 12/17/22 08:51) Medication List - Last Reconciled 12/17/22 by You Prince MD acetaminophen (Tylenol Extra Strength) 1,000 mg PO Q6H cetirizine (Zyrtec) 10 mg PO DAILY PRN clopidogrel (Plavix) 75 mg PO DAILY furosemide 10 mg (1/2 x 20 mg) PO QAM guaifenesin ER (Mucinex) 600 mg PO BID PRN metoprolol tartrate 100 mg PO BID mv,Ca,min-folic acid-vit K1 400-20 mcg (One-A-Day Women's 50 Plus) 1 tab PO DAILY omeprazole 20 mg PO DAILY rosuvastatin 40 mg PO DAILY warfarin 5 mg See Protocol PO DAILY HPI HPI Comments History of Present Illness Details 67-year-old female with background history of coronary artery disease with single-vessel PCI as well as severe aortic stenosis for which she underwent mechanical aortic valve replacement 2015 at [facility] in [facility]. She said she was following with her director of revenue near [place] regularly and was doing well. Recently she moved to this area to live close to family. Old records reviewed. In August 2013 she had 2 episodes of left arm and chest pain. She had moderate aortic stenosis at that time. She underwent stress testing which showed transient ischemic dilatation. Subsequent to that she underwent cardiac catheterization which confirmed moderate aortic stenosis on showed ostial right coronary artery stenosis which was treated with bare metal stent. She also in a mid LAD lesion which was thought to be intermediate but no FFR was performed. In July 2015 she had echocardiography which showed severe aortic stenosis and she underwent aortic valve replacement with 19 mm [facility] mechanical aortic valve. 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 On last visit she was complaining of shortness of breath. After discussion she was sent for echocardiography. Initially we decided to a stress test but because she has dyspnea on exertion with her coronary disease in the past we decided to a cardiac catheterization. Cardiac catheterization showed mid LAD 90% stenosis which was treated with drug-eluting stent. A 3 x 18 tabby resolute drug-eluting stent was placed. Echo showed normal LV systolic function with moderate left ventricular hypertrophy. Filling pressures were indeterminate. Aortic valve had high velocities of 3.49 m/sec with aortic valve area 1.29 cm2. Findings were consistent with her known diagnosis of patient prosthesis mismatch. After cardiac catheterization her symptoms have improved completely. She is here for follow-up today and has been walking and is back to her baseline. No bleeding issues. Continues to be stable on follow-up without any significant issues. No bleeding concerns. 12/17/22: She returns for follow-up. She has been taking medication regularly. Her blood pressure control is good. She is complaining of some dyspnea specially when she is going up stairs. She has knee arthritis and feels limited by pain. No orthopnea or PND. She has mild peripheral edema and is currently using 10 mg of Lasix daily. She is on Coumadin for mechanical aortic valve in the past. [facility] Medical History (Updated 07/16/22 @ 09:21 by You Prince MD) Annual physical exam Rodriguez esophagus Coronary arteriosclerosis FH: cholecystectomy Greater trochanteric pain syndrome Hyperglycemia Hyperlipidemia Hyperparathyroidism Mammogram normal Normal colonoscopy Normal Pap smear Overweight Surgical History H/O colonoscopy History of cardiac cath Hx of cholecystectomy S/P AVR (aortic valve replacement) S/P cardiac catheterization Family History Mother CAD (coronary artery disease) PVD (peripheral vascular disease) Father Bladder cancer Brother CAD (coronary artery disease) PVD (peripheral vascular disease) Social History Household Members Other:: , 3 children, walks daily, retired, moved from [facility] 06/2019 Alcohol intake: current Alcohol intake frequency: holidays/special occasions only Patient Tobacco Use Status: Former Tobacco user Quit Date: 1979 Years Smoked: Non-heavy smoker less than 1 year. Exposed to 2nd handsmoke growing up. Review of Systems Const Denies chills, Denies fatigue, Denies fever(s), Denies frequent falls, Denies weakness, Denies weight gain and Denies weight loss ENT Denies dizziness Card Denies chest pain, Denies leg edema, Denies lightheadedness, Denies palpitations, Denies dyspnea, Denies dyspnea on exertion, Denies orthopnea and Denies other (loss of consciousness) Resp Denies cough, Denies dyspnea and Denies dyspnea on exertion GI Denies hematochezia and Denies change in stool character Musc Denies abnormal gait, Denies muscle weakness, Denies numbness, Denies radiating pain into limb and Denies tingling Neuro Denies abnormal gait, Denies dizziness, Denies frequent falls, Denies numbness, Denies tingling and Denies weakness Endo Denies fatigue and Denies palpitations Physical Exam Vital Signs: Last Vital Signs Pulse 73 12/17/22 10:04 BP 126/76 12/17/22 10:04 BMI result Body Mass Index 43.3 GENERAL APPEARANCE: in no acute distress. NECK/THYROID: no carotid bruit, no jugular venous distention. SKIN: no suspicious lesions, warm and dry. HEART: systolic murmur in aortic area, mechanical 2nd heart sound. LUNGS: clear to auscultation bilaterally. ABDOMEN: normal, bowel sounds present, soft, nontender, nondistended. EXTREMITIES: Trace edema. PERIPHERAL PULSES: equal. NEUROLOGIC: nonfocal, alert and oriented. PSYCH: mood/affect full range. Results AMB INR Fingerstick AMB INR Fingerstick 2.2 Last Edit by Camilla Montes RN on 12/17/22 08:56 Assessment & Plan Assessment & Plan (1) Stable angina: Code(s): I20.8 - Other forms of angina pectoris (2) PRIETO (dyspnea on exertion): Code(s): R06.00 - Dyspnea, unspecified (3) S/P AVR (aortic valve replacement): Comment: [facility] mechanical on Coumadin, 07/2015 Code(s): Z95.2 - Presence of prosthetic heart valve (4) S/P cardiac catheterization: Comment: 05/30/2021 showing mid LAD 90% stenosis, BILLY 3 flow, GREGORY placed, left circumflex OM 1, proximal 40% stenosis, RCA mild diffuse disease, mid ISR in the ostial RCA stent Code(s): Z98.890 - Other specified postprocedural states Plan Pleasant 67-year-old female who is here for follow-up. She has known history of aortic valve replacement the past and is currently on Coumadin for mechanical aortic valve. She has some degree of patient prosthesis mismatch seen on echocardiography previously. She had LAD PCI and has been on Plavix along with Coumadin. Her main symptom at that time was also dyspnea on exertion. She returns and is complaining of some dyspnea again but is also complaining about her knees that she has arthritis which is limiting her activity. Dyspnea on exertion is a difficult symptom in general and in her case it can be multifactorial. I have advised her to consider cardiac rehabilitation to see if her symptoms improved with exercise. She will think about it and get back to us. In the meantime I have advised her to exercise on her own. She is complaining of some peripheral edema and has trace peripheral edema at this point. She can increase the Lasix to 20 mg. We will see her back in few months. Blood pressure control is good. Thank you for allowing me to participate in the care of your patient. Please feel free to contact me if you have any questions. Medications: Changed From furosemide 10 mg (1/2 x 20 mg) PO QAM 60 tabs 3RF To furosemide 20 mg PO QAM 60 tabs 3RF Coding Level of Care Code Est Pt Level 4 (19434) Diagnoses Stable angina I20.8 PRIETO (dyspnea on exertion) R06.00 S/P AVR (aortic valve replacement) Z95.2 S/P cardiac catheterization Z98.890
== END 2022-12-17 10:05 | disposition home or self-care (01) ==
PROVIDERS: Visit Provider Internal Medicine Cardiovascular Disease
DX: I20.8 Other forms of angina pectoris (principal); R06.00 Dyspnea, unspecified; Z95.2 Presence of prosthetic heart valve; Z98.890 Other specified postprocedural states
CPT/HCPCS: 99214

== ENCOUNTER 2022-12-26 09:44 | Outpatient (AMB) | payer MEDICARE, SELFPAY ==
[2022-12-26 09:53] LABS: Prothrombin Time Whole Bld POC 26.3 sec (11.1-13.5); ~PT, ~INR - Anti Coag Clinic 2.2 (0.9-1.1)
--- NOTE | 2022-12-26 10:01 | MHC.OFFVISCO ---
Intake Intake Visit Reasons: Anticoagulation Allergies No Known Allergies Allergy (Verified 12/26/22 09:48) Medication List - Last Reconciled 12/26/22 by Nancy Matthews RN acetaminophen (Tylenol Extra Strength) 1,000 mg PO Q6H cetirizine (Zyrtec) 10 mg PO DAILY PRN clopidogrel (Plavix) 75 mg PO DAILY furosemide 20 mg PO QAM guaifenesin ER (Mucinex) 600 mg PO BID PRN metoprolol tartrate 100 mg PO BID mv,Ca,min-folic acid-vit K1 400-20 mcg (One-A-Day Women's 50 Plus) 1 tab PO DAILY omeprazole 20 mg PO DAILY rosuvastatin 40 mg PO DAILY warfarin 5 mg See Protocol PO DAILY Nursing Note NO CP,SOB,DIET/MED CHANGES,FALLS OR SX OF BLEEDING. CONTINUE PRESENT DOSE AND FOLLOW-UP IN 3 WEEKS. GOOD UNDERSTANDING OF DOSING INSTR. Anti-Coag Initial Assessment Social Hx Patient Tobacco Use Status: Former Tobacco user Quit Date: 1979 alcohol intake: current Alcohol intake frequency: holidays/special occasions only Coding Level of Care Code Est Patient Level 1 Diagnoses Current use of anticoagulant therapy Z79.01 Assessment & Plan Assessment & Plan (1) Current use of anticoagulant therapy: Comment: On Coumadin for mechanical aortic valve. INR target is 2-3. Code(s): Z79.01 - [facility] (current) use of anticoagulants Category: Medical
== END 2022-12-26 10:02 | disposition home or self-care (01) ==
LOC: HO.ACS 09:44
PROVIDERS: PCP Internal Medicine; Visit Provider Internal Medicine
DX: Z79.01 Long term (current) use of anticoagulants (principal)

== ENCOUNTER → 2022-12-26 09:44 | Outpatient (BNVA) | payer MEDICARE, SELFPAY | PROVIDERS: PCP Internal Medicine; Visit Provider Internal Medicine | DX: Z95.2 Presence of prosthetic heart valve (principal); Z79.01 Long term (current) use of anticoagulants; Z51.81 Encounter for therapeutic drug level monitoring | CPT/HCPCS: 85610; 99211 ==

== ENCOUNTER 2022-12-26 11:17 | Outpatient (AMB) | payer MEDICARE, SELFPAY ==
--- NOTE | 2022-12-26 11:42 | A.OFFPC_ITS ---
Vital Signs 12/26/22 11:43 Height 5 ft 5 in Weight 261 lb BMI 43.4 BP 136/80 Blood Pressure Location Lt brachial Position Sitting Pulse 65 Pulse Source Pulse Oximeter Pulse Oximetry (%) 97 Oxygen Delivery Method Room Air Intake Visit Reasons: Annual PE/Overdue Intake Note: Pt is here today for PE. Allergies No Known Allergies Allergy (Verified 12/26/22 11:46) Medication List - Last Reconciled 12/26/22 by Lizzie Hummel MD acetaminophen (Tylenol Extra Strength) 1,000 mg PO Q6H cetirizine (Zyrtec) 10 mg PO DAILY PRN clopidogrel (Plavix) 75 mg PO DAILY furosemide 20 mg PO QAM guaifenesin ER (Mucinex) 600 mg PO BID PRN metoprolol tartrate 100 mg PO BID mv,Ca,min-folic acid-vit K1 400-20 mcg (One-A-Day Women's 50 Plus) 1 tab PO DAILY omeprazole 20 mg PO DAILY rosuvastatin 40 mg PO DAILY warfarin 5 mg See Protocol PO DAILY Tobacco use date assessed: 12/26/22 Fall risk assessment: No Falls in past year Last assessed Fall Risk: 12/26/22 Dental Screening Dental Screen Date: 12/26/22 Did you have a dental visit in the last 12 months?: Yes Did you have a dental problem in the last 6 months where you did not have access to dental care?: No Was dental information given to patient?: Patient has dentist HPI Annual PE/Overdue HPI Details Patient presents for physical. She has been trying to lose weight unsuccessfully with the Weight [employer] and [employer]. [facility] Medical History (Updated 12/26/22 @ 12:36 by Lizzie Hummel MD) Annual physical exam Rodriguez esophagus Coronary arteriosclerosis FH: cholecystectomy Greater trochanteric pain syndrome Hyperglycemia Hyperlipidemia Hyperparathyroidism Mammogram normal Normal colonoscopy Normal Pap smear Overweight Surgical History H/O colonoscopy History of cardiac cath Hx of cholecystectomy S/P AVR (aortic valve replacement) S/P cardiac catheterization Family History (Updated 12/26/22 @ 11:50 by RIGOBERTO Ryan) Mother CAD (coronary artery disease) PVD (peripheral vascular disease) Father Bladder cancer Brother CAD (coronary artery disease) PVD (peripheral vascular disease) Social History Household Members Other:: , 3 children, walks daily, retired, moved from [facility] 06/2019 Housing: House Alcohol intake: current Alcohol intake frequency: holidays/special occasions only Patient Tobacco Use Status: Former Tobacco user Quit Date: 1979 Years Smoked: Non-heavy smoker less than 1 year. Exposed to 2nd handsmoke growing up. e-Cigarette/Vaping Use: Never Used Current occupational status: retired Cognitive needs: No Hearing needs: No Vision needs: Yes Questionnaire PHQ-9 Over the last 2 weeks, how often have you been bothered by any of the following problems? 1. Little interest or pleasure in doing things: not at all 2. Feeling down, depressed, or hopeless: not at all 3. Trouble falling or staying asleep, or sleeping too much: several days 4. Feeling tired or having little energy: not at all 5. Poor appetite or overeating: several days 6. Feeling bad about yourself - or that you are a failure or have let yourself or your family down: not at all 7. Trouble concentrating on things, such as reading the newspaper or watching television: not at all 8. Moving or speaking so slowly that other people could have noticed. Or the opposite - being so fidgety or restless that you have been moving around a lot more than usual: not at all 9. Thoughts that you would be better off or of hurting yourself in some way: not at all Total score: 2 Depression Screening Interpretation: Negative Source: Developed by Drs. Hemanth Montana, Evita Gongora, Waqar Farrell and colleagues, with an educational jabier from [employer]. Thrive Questionnaire Date Thrive assessed: 12/26/22 I am a: Patient What is your living situation today?: I have a steady place to live Within the past 12 months, did the food you bought not last and you didn't have the money to get more?: Never true Within the past 12 months, did you worry whether your food would run out before you got money to buy more?: Never true Do you have trouble paying for medicines?: No Do you have trouble getting transportation to medical appointments?: No Do you have trouble paying your heating and electricity bill?: No Do you have trouble taking care of your child, family member or friend?: No Do you have trouble with day-to-day activities such as bathing, preparing meals, shopping, managing finances, etc.?: No Are you currently unemployed and looking for a job?: No Are you interested in more education?: No Please select the resources that you would like help with: None Currently or been in a relationship where the following occur: no concerns reported AUDIT C Alcohol Use Questionnaire (AUDIT-C) 1. How often do you have a drink containing alcohol?: 2-4 times a month 2. How many drinks containing alcohol do you have on a typical day when you are drinking?: 1 or 2 3. How often do you have six or more drinks on one occasion?: Never Total Score: 2 EDUARDA-7 AMB Questionnaire EDUARDA-7 Date EDUARDA - 7 assessed: 12/26/22 Feeling nervous, anxious, or on edge: 0 = Not at all Not being able to stop or control worryin = Not at all Worrying too much about different things: 0 = Not at all Trouble relaxin = Not at all Being so restless that it is hard to sit still: 0 = Not at all Becoming easily annoyed or irritable: 0 = Not at all Feeling afraid as if something awful might happen: 0 = Not at all Total EDUARDA-7 score (0-4 normal; 5-9 mild; 10-14 moderate; 15-21 severe): 0 Source: Developed by Drs. Hemanth Montana, Evita Gongora, Waqar Farrell and colleagues, with an educational jabier from [employer]. Review of Systems Const All systems reviewed & are unremarkable except as noted in HPI and below Reports no additional complaints Eyes Reports no additional complaints ENT Reports no additional complaints Card Reports no additional complaints Resp Reports no additional complaints GI Reports no additional complaints Reports no additional complaints Physical exam (Primary Care) Vital Signs: Last Vital Signs Pulse 65 12/26/22 11:43 BP 136/80 12/26/22 11:43 Pulse Ox 97 12/26/22 11:43 Oxygen Delivery Method Room Air 12/26/22 11:43 BMI result Body Mass Index 43.4 Tobacco/Smoking Status: Tobacco use Status Tobacco use date assessed 12/26/22 12/26/22 11:50 Patient Tobacco Use Status Former Tobacco user 12/26/22 11:50 e-Cigarette/Vaping Use Never Used 12/26/22 11:50 PHQ-9: PHQ-9 Score PHQ-9: Total score 2 12/26/22 12:05 Depression Screening Interpretation: Negative Thrive Assessment: Date of Thrive Assessment Date Thrive assessed 12/26/22 12/26/22 12:05 Currently or been in a relationship where the following occur: no concerns reported Const General: no acute distress HENMT Ears: hearing grossly normal bilaterally General nose exam: Normal external nose present Mouth: Normal oral and palatal mucosa present Eyes General: appearance normal, both eyes and all related structures Resp Effort & Inspection: normal respiratory effort Auscultation: clear to auscultation bilaterally Cardio Rhythm: regular rhythm Heart sounds: S1 normal heart sound present and S2 normal heart sound present GI Inspection: Yes normal to inspection Palpation (GI): Soft to palpation Percussion: Yes normal to percussion Auscultation: normal bowel sounds Assessment and Plan Assessment & Plan (1) Hyperglycemia: Code(s): R73.9 - Hyperglycemia, unspecified Plan: CHECK A1C, ADA DIET INCREASE EXERCISE WEIGHT LOSS DISCUSSED WITH THE PATIENT (2) Hyperlipidemia: Code(s): E78.5 - Hyperlipidemia, unspecified Plan: CONTINUE STATIN (3) Annual physical exam: Code(s): Z00.00 - Encounter for general adult medical examination without abnormal findings Plan: Well-balanced diet regular exercise discussed with the patient .she is up-to-date with mammogram Pap smear and colonoscopy. (4) Mammogram normal: Comment: 11/2019, 08/30 (5) S/P AVR (aortic valve replacement): Comment: [facility] mechanical on Coumadin, 07/2015 Code(s): Z95.2 - Presence of prosthetic heart valve (6) CAD (coronary artery disease): Comment: s/p LAD GREGORY 05/30, f/u [facility] Card[facility] Code(s): I25.10 - Atherosclerotic heart disease of eagle coronary artery without angina pectoris Plan: Continue current treatment (7) Obese: Code(s): E66.9 - Obesity, unspecified Plan: Patient is morbidly obese with BMI of 43 and unsuccessful trials of Weight lost including Weight Watchers. WEGOVY 0.25 weekly for the 1st month and increase the dose as tolerates will be tried. Patient follow-up in 3 months Orders: Orders Comprehensive Williamson. Panel Fast Today E78.5 - Hyperlipidemia, unspecified, R73.9 - Hyperglycemia, unspecified, Z00.00 - Encounter for general adult medical examination without abnormal findings, Z95.2 - Presence of prosthetic heart valve Lipid Panel Today E78.5 - Hyperlipidemia, unspecified, R73.9 - Hyperglycemia, unspecified, Z00.00 - Encounter for general adult medical examination without abnormal findings, Z95.2 - Presence of prosthetic heart valve TSH reflex Free T4 Today E78.5 - Hyperlipidemia, unspecified, R73.9 - Hyperglycemia, unspecified, Z00.00 - Encounter for general adult medical examination without abnormal findings, Z95.2 - Presence of prosthetic heart valve Vitamin D 25-OH Total Today E78.5 - Hyperlipidemia, unspecified, R73.9 - Hyperg lycemia, unspecified, Z00.00 - Encounter for general adult medical examination without abnormal findings, Z95.2 - Presence of prosthetic heart valve Complete Blood Count Auto Diff Today E78.5 - Hyperlipidemia, unspecified, R73.9 - Hyperglycemia, unspecified, Z00.00 - Encounter for general adult medical examination without abnormal findings, Z95.2 - Presence of prosthetic heart valve Hemoglobin A1c Today R73.9 - Hyperglycemia, unspecified PTHI Today E21.3 - Hyperparathyroidism, unspecified Medications: New semaglutide (weight loss) (Wegovy) 0.25 mg (0.5 mL) subcut QWEEK 2 mL 0RF Coding Level of Care Code Est Pt Prev Care >65y(64900) Diagnoses Hyperglycemia R73.9 Hyperlipidemia E78.5 Annual physical exam Z00.00 Mammogram normal S/P AVR (aortic valve replacement) Z95.2 CAD (coronary artery disease) I25.10 Obese E66.9
[2022-12-26 11:43] VITALS: BP 136/80; PULSE 65; O2SAT 97; BMI 43.4
== END 2022-12-26 12:39 | disposition home or self-care (01) ==
PROVIDERS: PCP Internal Medicine; Visit Provider Internal Medicine
DX: Z00.00 Encounter for general adult medical examination without abnormal findings (principal); Z68.41 Body mass index [BMI] 40.0-44.9, adult; E66.01 Morbid (severe) obesity due to excess calories; R73.9 Hyperglycemia, unspecified; E78.5 Hyperlipidemia, unspecified; Z95.2 Presence of prosthetic heart valve; I25.10 Atherosclerotic heart disease of native coronary artery without angina pectoris
CPT/HCPCS: 99397

== ENCOUNTER 2022-12-26 12:30 | Outpatient (REF) | payer MEDICARE, SELFPAY ==
[2022-12-26 16:09] LABS: MANUAL DIFF FLAG NO
[2022-12-26 16:21] LABS: Basophils Absolute Auto 0.1 X10*3/uL (0.0-0.2); Basophils Percent Auto 0.5 % (0-2); Eosinophils Absolute Auto 0.2 X10*3/uL (0.0-0.4); Eosinophils Percent Auto 1.7 % (0-4); Hematocrit 42.5 % (37.0-47.0); Hemoglobin 13.6 g/dl (12.0-16.0); Imm Gran Abs Auto 0.02 X10*3/uL (0.00-0.03); Imm Gran Pct Auto 0.2 % (0.0-0.4); Lymphocytes Absolute Auto 2.5 X10*3/uL (1.2-4.9); Lymphocytes Percent Auto 25.7 % (20-40); Mean Corpuscular Hemoglobin 27.1 pg (27.0-33.0); Mean Corpuscular Volume 84.8 fL (80.0-98.0); Mean Platelet Volume 10.1 fL (9.4-12.3); Monocytes Absolute Auto 0.7 X10*3/uL (0.1-1.2); Monocytes Percent Auto 6.9 % (2-11); Neutrophils Absolute Auto 6.2 x10*3/uL (2.0-8.3); Platelet Count 346 X10*3/uL (160-400); Red Blood Count 5.01 X10*6/uL (4.20-5.50); Red Cell Distribution Width 13.6 % (11.0-16.0); White Blood Count 9.6 X10*3/uL (4.8-10.8)
[2022-12-26 16:27] LABS: Estimated Average Glucose 114 mg/dL; Hemoglobin A1c % 5.6 %
[2022-12-27 02:24] LABS: TSH reflex Free T4 0.81 uIU/mL (0.32-4.0); Vitamin D 25-OH Total 47.6 ng/mL (>30)
[2022-12-27 02:25] LABS: Anion Gap 14 (12-20)
[2022-12-27 02:30] LABS: Alanine Aminotransferase 23 U/L (0-31); Albumin Level 4.4 g/dL (3.5-5.0); Alkaline Phosphatase 104 U/L (39-117); Aspartate Amino Transferase 25 U/L (5-31); Bilirubin Total 0.5 mg/dL (0.0-1.0); Blood Urea Nitrogen 15 mg/dL (9-16); Calcium 9.8 mg/dL (8.4-10.2); Carbon Dioxide 28 mmol/L (22-29); Chloride 103 mmol/L (96-108); Cholesterol 199 mg/dL; Estimated Glomerular Filt Rate > 60; Glucose Fasting 102 mg/dL (60-99); HDL Cholesterol 58 mg/dL; LDL Cholesterol Calculated 98 mg/dl; Potassium 4.1 mmol/L (3.3-5.1); Sodium 141 mmol/L (135-145); Total Protein 8.1 g/dL (6.5-8.0); Triglycerides 216 mg/dL
[2022-12-29 05:43] LABS: Calcium (PTHI) 9.9 mg/dL (8.6-10.4); PTHI 92 pg/mL (16-77)
== END 2022-12-26 12:31 | disposition home or self-care (01) ==
LOC: HO.HMGCLDS 12:30
PROVIDERS: PCP Internal Medicine; Visit Provider Internal Medicine
DX: Z00.00 Encounter for general adult medical examination without abnormal findings (principal); R73.9 Hyperglycemia, unspecified; E78.5 Hyperlipidemia, unspecified; E21.3 Hyperparathyroidism, unspecified; Z95.2 Presence of prosthetic heart valve
CPT/HCPCS: 36415; 80053; 80061; 82306; 83036; 83970; 84443; 85025

== ENCOUNTER 2023-01-16 09:39 | Outpatient (AMB) | payer MEDICARE, SELFPAY ==
--- NOTE | 2023-01-16 09:49 | MHC.OFFVISCO ---
Intake Intake Visit Reasons: Anticoagulation Allergies No Known Allergies Allergy (Verified 01/16/23 09:40) Medication List - Last Reconciled 01/16/23 by Nancy Matthews RN acetaminophen (Tylenol Extra Strength) 1,000 mg PO Q6H cetirizine (Zyrtec) 10 mg PO DAILY PRN clopidogrel (Plavix) 75 mg PO DAILY furosemide 20 mg PO QAM guaifenesin ER (Mucinex) 600 mg PO BID PRN metoprolol tartrate 100 mg PO BID mv,Ca,min-folic acid-vit K1 400-20 mcg (One-A-Day Women's 50 Plus) 1 tab PO DAILY omeprazole 20 mg PO DAILY rosuvastatin 40 mg PO DAILY semaglutide (weight loss) (Wegovy) 0.25 mg (0.5 mL) subcut QWEEK warfarin 5 mg See Protocol PO DAILY Nursing Note NO CP,SOB,DIET/MED CHANGES,FALLS OR SX OF BLEEDING. CONTINUE PRESERNT DOSE AND FOLLOW-UP IN 4 WEEKS. GOOD UNDERSTANDING OF DOSING INSTR. Anti-Coag Initial Assessment Social Hx Patient Tobacco Use Status: Former Tobacco user Quit Date: 1979 alcohol intake: current Alcohol intake frequency: holidays/special occasions only Coding Level of Care Code Est Patient Level 1 Diagnoses Current use of anticoagulant therapy Z79.01 Results AMB INR Fingerstick AMB INR Fingerstick 3.0 Last Edit by Nancy Matthews RN on 01/16/23 09:47 Assessment & Plan Assessment & Plan (1) Current use of anticoagulant therapy: Comment: On Coumadin for mechanical aortic valve. INR target is 2-3. Code(s): Z79.01 - long term acute care registered nurse (current) use of anticoagulants Category: Medical
[2023-01-16 11:41] LABS: Prothrombin Time Whole Bld POC 36.5 sec (11.1-13.5)
== END 2023-01-16 09:51 | disposition home or self-care (01) ==
LOC: HO.ACS 09:39
PROVIDERS: PCP Internal Medicine; Visit Provider Internal Medicine
DX: Z79.01 Long term (current) use of anticoagulants (principal)

== ENCOUNTER → 2023-01-16 09:39 | Outpatient (BNVA) | payer MEDICARE, SELFPAY | PROVIDERS: PCP Internal Medicine; Visit Provider Internal Medicine | DX: Z95.2 Presence of prosthetic heart valve (principal); Z79.01 Long term (current) use of anticoagulants; Z51.81 Encounter for therapeutic drug level monitoring | CPT/HCPCS: 85610; 99211 ==

== ENCOUNTER 2023-02-06 09:35 | Outpatient (AMB) | payer MEDICARE, SELFPAY ==
[2023-02-06 09:46] LABS: Prothrombin Time Whole Bld POC 45.4 sec (11.1-13.5); ~PT, ~INR - Anti Coag Clinic 3.8 (0.9-1.1)
--- NOTE | 2023-02-06 09:56 | MHC.OFFVISCO ---
Intake Intake Visit Reasons: Anticoagulation Allergies No Known Allergies Allergy (Verified 02/06/23 09:42) Medication List - Last Reconciled 02/06/23 by Nancy Matthews RN acetaminophen (Tylenol Extra Strength) 1,000 mg PO Q6H cetirizine (Zyrtec) 10 mg PO DAILY PRN clopidogrel (Plavix) 75 mg PO DAILY furosemide 20 mg PO QAM guaifenesin ER (Mucinex) 600 mg PO BID PRN metoprolol tartrate 100 mg PO BID mv,Ca,min-folic acid-vit K1 400-20 mcg (One-A-Day Women's 50 Plus) 1 tab PO DAILY omeprazole 20 mg PO DAILY rosuvastatin 40 mg PO DAILY semaglutide (weight loss) (Wegovy) 0.25 mg (0.5 mL) subcut QWEEK warfarin 5 mg See Protocol PO DIRECTED Nursing Note NO CP,SOB,DIET/MED CHANGES,FALLS OR SX OF BLEEDING. PT.IS LEAVING ON 02/08 FOR 2 WEEK CRUISE. DECREASE DOSE TODAY TYHEN RESUME USUAL DOSING AND FOLLOW-UP HERE ON 02/22. WILL BE SURE TO BALANCE GREENS WITH REDS. GOOD UNDERSTANDING OF DOSING INSTR. Anti-Coag Initial Assessment Social Hx Patient Tobacco Use Status: Former Tobacco user Quit Date: 1979 alcohol intake: current Alcohol intake frequency: holidays/special occasions only Coding Level of Care Code Est Patient Level 1 Diagnoses Current use of anticoagulant therapy Z79.01 Assessment & Plan Assessment & Plan (1) Current use of anticoagulant therapy: Comment: On Coumadin for mechanical aortic valve. INR target is 2-3. Code(s): Z79.01 - retirement (current) use of anticoagulants Category: Medical
== END 2023-02-06 10:01 | disposition home or self-care (01) ==
LOC: HO.ACS 09:35
PROVIDERS: PCP Internal Medicine; Visit Provider Internal Medicine
DX: Z79.01 Long term (current) use of anticoagulants (principal)

== ENCOUNTER → 2023-02-06 09:35 | Outpatient (BNVA) | payer MEDICARE, SELFPAY | PROVIDERS: PCP Internal Medicine; Visit Provider Internal Medicine | DX: Z95.2 Presence of prosthetic heart valve (principal); Z79.01 Long term (current) use of anticoagulants; Z51.81 Encounter for therapeutic drug level monitoring | CPT/HCPCS: 85610; 99211 ==

== ENCOUNTER 2023-02-21 09:37 | Outpatient (AMB) | payer MEDICARE, SELFPAY ==
[2023-02-21 10:02] LABS: Prothrombin Time Whole Bld POC 64.5 sec (11.1-13.5); ~PT, ~INR - Anti Coag Clinic 5.4 (0.9-1.1)
--- NOTE | 2023-02-21 10:08 | MHC.OFFVISCO ---
Intake Intake Visit Reasons: Anticoagulation Allergies No Known Allergies Allergy (Verified 02/21/23 09:56) Medication List - Last Reconciled 02/21/23 by Norma Rodriges RN acetaminophen (Tylenol Extra Strength) 1,000 mg PO Q6H cetirizine (Zyrtec) 10 mg PO DAILY PRN clopidogrel (Plavix) 75 mg PO DAILY furosemide 20 mg PO QAM guaifenesin ER (Mucinex) 600 mg PO BID PRN metoprolol tartrate 100 mg PO BID mv,Ca,min-folic acid-vit K1 400-20 mcg (One-A-Day Women's 50 Plus) 1 tab PO DAILY omeprazole 20 mg PO DAILY rosuvastatin 40 mg PO DAILY semaglutide (weight loss) (Wegovy) 0.25 mg (0.5 mL) subcut QWEEK warfarin 5 mg See Protocol PO DIRECTED Nursing Note INR 5.4 out of therapeutic range- REFUSED LAB DRAW TODAY S/P OBI TRIP -SHE TOOK A LOT OF TYLENOL FOR ACHING FEET FROM A LOT OF WALKING, HAD WINE, AND EXTREME HEAT, Medications and supplements reviewed Patient status: TAKING LESS TYLENOL NOW, NO OTHER CHANGES Medications or supplements: RX SAME Diet: GOOD Denies any signs and symptoms of bleeding or clotting or unusual bruising Bleeding, bruising, clotting discussed AND WILL APPLY COLD COMPRESS TO AREA OF ANY OF EXCESSIVE BLEEDING OR BRUISING Nutritional guidance given: COOKED GREENS LOWER INR QUICKER PROVIDES MORE ABSORBABLE VIT K Dose: HOLD TODAY THEN RESUME USUAL DOSE F/U INR Date : 02/27/23 ( UNALBE TO COME SOONER DUE TO OTHER COMMITMENTS) ?? Patient verbalizing understanding of instructions given. attempt to call PCP -no answer at this time msg sent to PCP via EMR will f/u call Anti-Coag Initial Assessment Social Hx Patient Tobacco Use Status: Former Tobacco user Quit Date: 1979 alcohol intake: current Alcohol intake frequency: holidays/special occasions only Coding Level of Care Code Est Patient Level 1 Diagnoses Current use of anticoagulant therapy Z79.01 Assessment & Plan Assessment & Plan (1) Current use of anticoagulant therapy: Comment: On Coumadin for mechanical aortic valve. INR target is 2-3. 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
== END 2023-02-21 10:16 | disposition home or self-care (01) ==
LOC: HO.ACS 09:37
PROVIDERS: PCP Internal Medicine; Visit Provider Internal Medicine
DX: Z79.01 Long term (current) use of anticoagulants (principal)

== ENCOUNTER → 2023-02-21 09:37 | Outpatient (BNVA) | payer MEDICARE, SELFPAY | PROVIDERS: PCP Internal Medicine; Visit Provider Internal Medicine | DX: Z95.2 Presence of prosthetic heart valve (principal); Z79.01 Long term (current) use of anticoagulants; Z51.81 Encounter for therapeutic drug level monitoring | CPT/HCPCS: 85610; 99211 ==

== ENCOUNTER 2023-02-27 10:14 | Outpatient (AMB) | payer MEDICARE, SELFPAY ==
--- NOTE | 2023-02-27 10:22 | MHC.OFFVISCO ---
Intake Intake Visit Reasons: Anticoagulation Allergies No Known Allergies Allergy (Verified 02/27/23 10:16) Medication List - Last Reconciled 02/27/23 by Camilla Montes RN acetaminophen (Tylenol Extra Strength) 1,000 mg PO Q6H cetirizine (Zyrtec) 10 mg PO DAILY PRN clopidogrel (Plavix) 75 mg PO DAILY furosemide 20 mg PO QAM guaifenesin ER (Mucinex) 600 mg PO BID PRN metoprolol tartrate 100 mg PO BID mv,Ca,min-folic acid-vit K1 400-20 mcg (One-A-Day Women's 50 Plus) 1 tab PO DAILY omeprazole 20 mg PO DAILY rosuvastatin 40 mg PO DAILY semaglutide (weight loss) (Rabia) 0.25 mg (0.5 mL) subcut QWEEK warfarin 5 mg See Protocol PO DIRECTED Nursing Note INR 1.7-?? out of therapeutic range prev elev inr pt states due to wine consumption and tylenol usage while on vacation Medications and supplements reviewed Patient status: recent trip to [place] Medications or supplements: no changes Diet: same Denies any signs and symptoms of bleeding or clotting or unusual bruising Bleeding, bruising, clotting discussed Nutritional guidance given: no greens for 2 days, eat reds to raise inr Dose: 7.5mg today then cont reg dosing- 5mg x 3, 7.5mg x 4 F/U INR Date : 1 week?? Patient verbalizing understanding of instructions given. Anti-Coag Initial Assessment Social Hx Patient Tobacco Use Status: Former Tobacco user Quit Date: 1979 alcohol intake: current Alcohol intake frequency: holidays/special occasions only Coding Level of Care Code Est Patient Level 1 Diagnoses Current use of anticoagulant therapy Z79.01 Assessment & Plan Assessment & Plan (1) Current use of anticoagulant therapy: Comment: On Coumadin for mechanical aortic valve. INR target is 2-3. Code(s): Z79.01 - penitentiary (current) use of anticoagulants Category: Medical Medications: Discontinued semaglutide (weight loss) (Rabia) Discontinued Reason: Insurance Denied 0.25 mg (0.5 mL) subcut QWEEK 2 mL 0RF
[2023-02-27 10:24] LABS: Prothrombin Time Whole Bld POC 20.3 sec (11.1-13.5); ~PT, ~INR - Anti Coag Clinic 1.7 (0.9-1.1)
== END 2023-02-27 11:18 | disposition home or self-care (01) ==
LOC: HO.ACS 10:14
PROVIDERS: PCP Internal Medicine; Visit Provider Internal Medicine
DX: Z79.01 Long term (current) use of anticoagulants (principal)

== ENCOUNTER → 2023-02-27 10:14 | Outpatient (BNVA) | payer MEDICARE, SELFPAY | PROVIDERS: PCP Internal Medicine; Visit Provider Internal Medicine | DX: Z95.2 Presence of prosthetic heart valve (principal); Z79.01 Long term (current) use of anticoagulants; Z51.81 Encounter for therapeutic drug level monitoring | CPT/HCPCS: 85610; 99211 ==

== ENCOUNTER 2023-03-06 09:37 | Outpatient (AMB) | payer MEDICARE, SELFPAY ==
[2023-03-06 09:48] LABS: Prothrombin Time Whole Bld POC 26.1 sec (11.1-13.5); ~PT, ~INR - Anti Coag Clinic 2.2 (0.9-1.1)
--- NOTE | 2023-03-06 09:54 | MHC.OFFVISCO ---
Intake Intake Visit Reasons: Anticoagulation Allergies No Known Allergies Allergy (Verified 03/06/23 09:42) Medication List - Last Reconciled 03/06/23 by Norma Rodriges, RN acetaminophen (Tylenol Extra Strength) 1,000 mg PO Q6H cetirizine (Zyrtec) 10 mg PO DAILY PRN clopidogrel (Plavix) 75 mg PO DAILY furosemide 20 mg PO QAM guaifenesin ER (Mucinex) 600 mg PO BID PRN metoprolol tartrate 100 mg PO BID mv,Ca,min-folic acid-vit K1 400-20 mcg (One-A-Day Women's 50 Plus) 1 tab PO DAILY omeprazole 20 mg PO DAILY rosuvastatin 40 mg PO DAILY warfarin 5 mg See Protocol PO DIRECTED Nursing Note INR: 2.2 in therapeutic range Medications and supplements reviewed No changes in health, diet, medications, or supplements, Denies any signs and symptoms of bleeding or bruising or clotting. Bleeding, bruising, clotting discussed Nutritional guidance given - EAT A NIX OF FRUITS AND VEGETABLES, EAT COOKED GREENS WHEN TAKING MORE TYLENOL THAN USUAL , Dose: 5MG MWF/ 7.5MG X 4 DAYS F/U INR: 3 WEEKS Patient verbalizes understanding of instructions given Anti-Coag Initial Assessment Social Hx Patient Tobacco Use Status: Former Tobacco user Quit Date: 1979 alcohol intake: current Alcohol intake frequency: holidays/special occasions only Coding Level of Care Code Est Patient Level 1 Diagnoses Current use of anticoagulant therapy Z79.01 Assessment & Plan Assessment & Plan (1) Current use of anticoagulant therapy: Comment: On Coumadin for mechanical aortic valve. INR target is 2-3. Code(s): Z79.01 - [facility]P (current) use of anticoagulants Category: Medical
== END 2023-03-06 09:56 | disposition home or self-care (01) ==
LOC: HO.ACS 09:37
PROVIDERS: PCP Internal Medicine; Visit Provider Internal Medicine
DX: Z79.01 Long term (current) use of anticoagulants (principal)

== ENCOUNTER → 2023-03-06 09:37 | Outpatient (BNVA) | payer MEDICARE, SELFPAY | PROVIDERS: PCP Internal Medicine; Visit Provider Internal Medicine | DX: Z95.2 Presence of prosthetic heart valve (principal); Z79.01 Long term (current) use of anticoagulants; Z51.81 Encounter for therapeutic drug level monitoring | CPT/HCPCS: 85610; 99211 ==

== ENCOUNTER 2023-03-26 10:48 | Outpatient (AMB) | payer MEDICARE, SELFPAY ==
[2023-03-26 10:52] VITALS: BP 130/72; PULSE 68; O2SAT 96; BMI 44.1
--- NOTE | 2023-03-26 10:52 | MHC.PC.OV ---
Vital Signs 03/26/23 10:52 Height 5 ft 5 in Weight 265 lb BMI 44.1 BP 130/72 Blood Pressure Location Lt brachial Position Sitting Pulse 68 Pulse Source Pulse Oximeter Pulse Oximetry (%) 96 Oxygen Delivery Method Room Air Intake Visit Reasons: 3m follow up Intake Note: Pt is here today for 3 months follow up visit. Allergies No Known Allergies Allergy (Verified 03/26/23 10:52) Medication List - Last Reconciled 03/26/23 by Lizzie Hummel MD acetaminophen (Tylenol Extra Strength) 1,000 mg PO Q6H cetirizine (Zyrtec) 10 mg PO DAILY PRN clopidogrel (Plavix) 75 mg PO DAILY furosemide 20 mg PO QAM guaifenesin ER (Mucinex) 600 mg PO BID PRN metoprolol tartrate 100 mg PO BID mv,Ca,min-folic acid-vit K1 400-20 mcg (One-A-Day Women's 50 Plus) 1 tab PO DAILY omeprazole 20 mg PO DAILY rosuvastatin 40 mg PO DAILY warfarin 5 mg See Protocol PO DIRECTED Tobacco use date assessed: 03/26/23 Fall risk assessment: No Falls in past year Last assessed Fall Risk: 03/26/23 HPI 3m follow up HPI Details Patient presents for the follow-up of hyperlipidemia chronic GERD hypertension, CAD, obesity and chronic lower extremity edema. Patient complains of chronic numbness and tingling sensation worse when walking. Patient denies any lower extremity weakness, lower back pain change in bowel bladder function PFSH Medical History (Updated 03/26/23 @ 11:39 by Lizzie Hummel MD) Greater trochanteric pain syndrome Hyperglycemia Hyperparathyroidism Overweight Hyperlipidemia Annual physical exam Coronary arteriosclerosis Normal Pap smear Normal colonoscopy Mammogram normal Rodriguez esophagus FH: cholecystectomy Surgical History S/P cardiac catheterization History of cardiac cath Hx of cholecystectomy S/P AVR (aortic valve replacement) H/O colonoscopy Family History Mother CAD (coronary artery disease) PVD (peripheral vascular disease) Father Bladder cancer Brother CAD (coronary artery disease) PVD (peripheral vascular disease) Social History Household Members Other:: , 3 children, walks daily, retired, moved from [facility] 06/2019 Housing: House Alcohol intake: current Alcohol intake frequency: holidays/special occasions only Patient Tobacco Use Status: Former Tobacco user Quit Date: 1979 Smoked: Non-heavy smoker less than 1 year. Exposed to 2nd handsmoke growing up. e-Cigarette/Vaping Use: Never Used Current occupational status: retired Cognitive needs: No Hearing needs: No Vision needs: Yes Questionnaire Thrive Questionnaire Date Thrive assessed: 12/26/22 EDUARDA-7 AMB Questionnaire EDUARDA-7 Date EDUARDA - 7 assessed: 12/26/22 Source: Developed by Drs. Hemanth Montana, Evita Gongora, Waqar Farrell and colleagues, with an educational jabier from [employer]. Review of Systems Const All systems reviewed & are unremarkable except as noted in HPI and below Reports no additional complaints Eyes Reports no additional complaints ENT Reports no additional complaints Card Reports no additional complaints Resp Reports no additional complaints GI Reports no additional complaints Physical exam (Primary Care) Vital Signs: Last Vital Signs Pulse 68 03/26/23 10:52 BP 130/72 03/26/23 10:52 Pulse Ox 96 03/26/23 10:52 Oxygen Delivery Method Room Air 03/26/23 10:52 BMI result Body Mass Index 44.1 Tobacco/Smoking Status: Tobacco use Status Tobacco use date assessed 03/26/23 03/26/23 10:58 Patient Tobacco Use Status Former Tobacco user 03/26/23 10:58 e-Cigarette/Vaping Use Never Used 03/26/23 10:58 Thrive Assessment: Date of Thrive Assessment Date Thrive assessed 12/26/22 03/26/23 10:58 Const General: no acute distress HENMT Head: Yes normal to inspection Ears: hearing grossly normal bilaterally Face and sinus: Yes normal facial exam Eyes General: appearance normal, both eyes and all related structures Neck Neck: Yes supple Resp Effort & Inspection: normal respiratory effort Auscultation: clear to auscultation bilaterally Cardio Rhythm: regular rhythm Heart sounds: S1 normal heart sound present and S2 normal heart sound present GI Inspection: Yes normal to inspection Palpation (GI): Soft to palpation Assessment and Plan Assessment & Plan (1) Neuropathy: Code(s): G62.9 - Polyneuropathy, unspecified Plan: Check vitamin B12 level and were comfortable shoes (2) CAD (coronary artery disease): Comment: s/p LAD GREGORY 05/30, f/u [facility] Cardiology Code(s): I25.10 - Atherosclerotic heart disease of [place] coronary artery without angina pectoris Plan: Continue current medications and follow-up with cardiology every 6 months (3) Hyperglycemia: Code(s): R73.9 - Hyperglycemia, unspecified Plan: A1c is 5.6, continue ADA diet increase physical activity weight loss discussed with the patient, follow-up in 6 months with a fasting labs before (4) Hyperlipidemia: Code(s): E78.5 - Hyperlipidemia, unspecified Plan: Continue statin (5) Overweight: Code(s): E66.3 - Overweight Plan: Weight loss discussed with the patient Orders: Orders Vitamin B12 and Folate Today G62.9 - Polyneuropathy, unspecified Lipid Panel 6 Months E66.3 - Overweight, E78.5 - Hyperlipidemia, unspecified, I25.10 - Atherosclerotic heart disease of [place] coronary artery without angina pectoris, R73.9 - Hyperglycemia, unspecified TSH reflex Free T4 6 Months E66.3 - Overweight, E78.5 - Hyperlipidemia, unspecified, I25.10 - Atherosclerotic heart disease of [place] coronary artery without angina pectoris, R73.9 - Hyperglycemia, unspecified Comprehensive Varina. Panel Fast 6 Months E66.3 - Overweight, E78.5 - Hyperlipidemia, unspecified, I25.10 - Atherosclerotic heart disease of [place] coronary artery without angina pectoris, R73.9 - Hyperglycemia, unspecified Hemoglobin A1c 6 Months E66.3 - Overweight, E78.5 - Hyperlipidemia, unspecified, I25.10 - Atherosclerotic heart disease of [place] coronary artery without angina pectoris, R73.9 - Hyperglycemia, unspecified Complete Blood Count Auto Diff 6 Months E66.3 - Overweight, E78.5 - Hyperlipidemia, unspecified, I25.10 - Atherosclerotic heart disease of [place] coronary artery without angina pectoris, R73.9 - Hyperglycemia, unspecified Coding Level of Care Code Est Pt Level 4 (10621) Diagnoses Neuropathy G62.9 CAD (coronary artery disease) I25.10 Hyperglycemia R73.9 Hyperlipidemia E78.5 Overweight E66.3
== END 2023-03-26 11:42 | disposition home or self-care (01) ==
PROVIDERS: PCP Internal Medicine; Visit Provider Internal Medicine
DX: G62.9 Polyneuropathy, unspecified (principal); I25.10 Atherosclerotic heart disease of native coronary artery without angina pectoris; R73.9 Hyperglycemia, unspecified; E78.5 Hyperlipidemia, unspecified; E66.3 Overweight
CPT/HCPCS: 99214

== ENCOUNTER 2023-03-26 11:42 | Outpatient (REF) | payer MEDICARE, SELFPAY ==
[2023-03-26 14:36] LABS: Folate 15.6 ng/mL (> or = 4.0); Vitamin B12 373 pg/mL (200-900)
== END 2023-03-26 11:43 | disposition home or self-care (01) ==
LOC: HO.HMGCLDS 11:42
PROVIDERS: PCP Internal Medicine; Visit Provider Internal Medicine
DX: G62.9 Polyneuropathy, unspecified (principal)
CPT/HCPCS: 36415; 82607; 82746

== ENCOUNTER 2023-03-27 09:43 | Outpatient (AMB) | payer MEDICARE, SELFPAY ==
--- NOTE | 2023-03-27 09:48 | MHC.OFFVISCO ---
Intake Intake Visit Reasons: Anticoagulation Allergies No Known Allergies Allergy (Verified 03/27/23 09:44) Medication List - Last Reconciled 03/27/23 by Camilla Montes RN acetaminophen (Tylenol Extra Strength) 1,000 mg PO Q6H cetirizine (Zyrtec) 10 mg PO DAILY PRN clopidogrel (Plavix) 75 mg PO DAILY furosemide 20 mg PO QAM guaifenesin ER (Mucinex) 600 mg PO BID PRN metoprolol tartrate 100 mg PO BID mv,Ca,min-folic acid-vit K1 400-20 mcg (One-A-Day Women's 50 Plus) 1 tab PO DAILY omeprazole 20 mg PO DAILY rosuvastatin 40 mg PO DAILY warfarin 5 mg See Protocol PO DIRECTED Nursing Note INR: 2.1- in therapeutic range Medications and supplements reviewed No changes in health, diet, medications, or supplements, Denies any signs and symptoms of bleeding or bruising or clotting. Bleeding, bruising, clotting discussed Nutritional guidance given Dose: 5mg x 3, 7.5mg x 4 F/U INR: pt req 3 weeks Patient verbalizes understanding of instructions given pt to [place] for one week Anti-Coag Initial Assessment Social Hx Patient Tobacco Use Status: Former Tobacco user Quit Date: 1979 alcohol intake: current Alcohol intake frequency: holidays/special occasions only Coding Level of Care Code Est Patient Level 1 Diagnoses Current use of anticoagulant therapy Z79.01 Results AMB INR Fingerstick AMB INR Fingerstick 21 Last Edit by Camilla Montes RN on 03/27/23 09:49 AMB INR Fingerstick AMB INR Fingerstick 2.1 Last Edit by Camilla Montes RN on 03/27/23 09:50 Assessment & Plan Assessment & Plan (1) Current use of anticoagulant therapy: Comment: On Coumadin for mechanical aortic valve. INR target is 2-3. Code(s): Z79.01 - care home (current) use of anticoagulants Category: Medical
[2023-03-27 09:49] LABS: Prothrombin Time Whole Bld POC 25.4 sec (11.1-13.5); ~PT, ~INR - Anti Coag Clinic 2.1 (0.9-1.1)
== END 2023-03-27 09:54 | disposition home or self-care (01) ==
LOC: HO.ACS 09:43
PROVIDERS: PCP Internal Medicine; Visit Provider Internal Medicine
DX: Z79.01 Long term (current) use of anticoagulants (principal)

== ENCOUNTER → 2023-03-27 09:43 | Outpatient (BNVA) | payer MEDICARE, SELFPAY | PROVIDERS: PCP Internal Medicine; Visit Provider Internal Medicine | DX: Z95.2 Presence of prosthetic heart valve (principal); Z79.01 Long term (current) use of anticoagulants; Z51.81 Encounter for therapeutic drug level monitoring | CPT/HCPCS: 85610; 99211 ==

== ENCOUNTER 2023-04-17 09:35 | Outpatient (AMB) | payer MEDICARE, SELFPAY ==
[2023-04-17 09:49] LABS: Prothrombin Time Whole Bld POC 30.9 sec (11.1-13.5); ~PT, ~INR - Anti Coag Clinic 2.6 (0.9-1.1)
--- NOTE | 2023-04-17 09:56 | MHC.OFFVISCO ---
Intake Intake Visit Reasons: Anticoagulation Allergies No Known Allergies Allergy (Verified 04/17/23 09:44) Medication List - Last Reconciled 04/17/23 by Nancy Matthews RN acetaminophen (Tylenol Extra Strength) 1,000 mg PO Q6H cetirizine (Zyrtec) 10 mg PO DAILY PRN clopidogrel (Plavix) 75 mg PO DAILY furosemide 20 mg PO QAM guaifenesin ER (Mucinex) 600 mg PO BID PRN metoprolol tartrate 100 mg PO BID mv,Ca,min-folic acid-vit K1 400-20 mcg (One-A-Day Women's 50 Plus) 1 tab PO DAILY omeprazole 20 mg PO DAILY rosuvastatin 40 mg PO DAILY warfarin 5 mg See Protocol PO DIRECTED Nursing Note NO CP,SOB,DIET/MED CHANGES,FALLS OR SX OF BLEEDING., CONTINUE PRESENT DOSE AND FOLLOW-UP IN 3 WEEKS. GOOD UNDERSTANDING OF DOSING.INSTR. Anti-Coag Initial Assessment Social Hx Patient Tobacco Use Status: Former Tobacco user Quit Date: 1979 alcohol intake: current Alcohol intake frequency: holidays/special occasions only Coding Level of Care Code Est Patient Level 1 Diagnoses Current use of anticoagulant therapy Z79.01 Assessment & Plan Assessment & Plan (1) Current use of anticoagulant therapy: Comment: On Coumadin for mechanical aortic valve. INR target is 2-3. Code(s): Z79.01 - retirement (current) use of anticoagulants Category: Medical
== END 2023-04-17 10:00 | disposition home or self-care (01) ==
LOC: HO.ACS 09:35
PROVIDERS: PCP Internal Medicine; Visit Provider Internal Medicine
DX: Z79.01 Long term (current) use of anticoagulants (principal)

== ENCOUNTER → 2023-04-17 09:35 | Outpatient (BNVA) | payer MEDICARE, SELFPAY | PROVIDERS: PCP Internal Medicine; Visit Provider Internal Medicine | DX: Z95.2 Presence of prosthetic heart valve (principal); Z79.01 Long term (current) use of anticoagulants; Z51.81 Encounter for therapeutic drug level monitoring | CPT/HCPCS: 85610; 99211 ==

== ENCOUNTER 2023-04-22 12:34 | Outpatient (AMB) | payer MEDICARE, SELFPAY ==
--- NOTE | 2023-04-22 12:44 | MHC.OFFVIS ---
Intake Vital Signs 04/22/23 12:46 Height 5 ft 5 in Weight 259 lb 4.218 oz BMI 43.1 BP 114/74 Blood Pressure Location Lt brachial Position Sitting Pulse 58 Pulse Source Pulse Oximeter Pulse Oximetry (%) 97 Oxygen Delivery Method Room Air Intake Visit Reasons: follow up Intake Note: Pt presents to the office today for a follow up. Pt states she is feeling well and denies any cardiac concerns at this time. Allergies No Known Allergies Allergy (Verified 04/22/23 12:49) Medication List - Last Reconciled 04/22/23 by You Prince MD acetaminophen (Tylenol Extra Strength) 1,000 mg PO Q6H cetirizine (Zyrtec) 10 mg PO DAILY PRN clopidogrel (Plavix) 75 mg PO DAILY furosemide 20 mg PO QAM guaifenesin ER (Mucinex) 600 mg PO BID PRN metoprolol tartrate 100 mg PO BID mv,Ca,min-folic acid-vit K1 400-20 mcg (One-A-Day Women's 50 Plus) 1 tab PO DAILY omeprazole 20 mg PO DAILY rosuvastatin 40 mg PO DAILY warfarin 5 mg See Protocol PO DIRECTED HPI HPI Comments History of Present Illness Details 67-year-old female with background history of coronary artery disease with single-vessel PCI as well as severe aortic stenosis for which she underwent mechanical aortic valve replacement 2015 at [facility] in [facility]. 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 Recently she moved to this area to live close to family. Old records reviewed. In August 2013 she had 2 episodes of left arm and chest pain. She had moderate aortic stenosis at that time. She underwent stress testing which showed transient ischemic dilatation. Subsequent to that she underwent cardiac catheterization which confirmed moderate aortic stenosis on showed ostial right coronary artery stenosis which was treated with bare metal stent. She also in a mid LAD lesion which was thought to be intermediate but no FFR was performed. In July 2015 she had echocardiography which showed severe aortic stenosis and she underwent aortic valve replacement with 19 mm [facility] mechanical aortic valve. 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 On last visit she was complaining of shortness of breath. After discussion she was sent for echocardiography. Initially we decided to a stress test but because she has dyspnea on exertion with her coronary disease in the past we decided to a cardiac catheterization. Cardiac catheterization showed mid LAD 90% stenosis which was treated with drug-eluting stent. A 3 x 18 tabby resolute drug-eluting stent was placed. Echo showed normal LV systolic function with moderate left ventricular hypertrophy. Filling pressures were indeterminate. Aortic valve had high velocities of 3.49 m/sec with aortic valve area 1.29 cm2. Findings were consistent with her known diagnosis of patient prosthesis mismatch. After cardiac catheterization her symptoms have improved completely. She is here for follow-up today and has been walking and is back to her baseline. No bleeding issues. Continues to be stable on follow-up without any significant issues. No bleeding concerns. 12/17/22: She returns for follow-up. She has been taking medication regularly. Her blood pressure control is good. She is complaining of some dyspnea specially when she is going up stairs. She has knee arthritis and feels limited by pain. No orthopnea or PND. She has mild peripheral edema and is currently using 10 mg of Lasix daily. She is on Coumadin for mechanical aortic valve in the past. 04/22/2023: She returns for follow-up. She has been doing well and has been physically active. No chest discomfort shortness of breath. As mentioned above dyspnea is her anginal equivalent. No bleeding concerns. She is taking Plavix and Coumadin. She has a mechanical aortic valve. [facility] Medical History Greater trochanteric pain syndrome Hyperglycemia Hyperparathyroidism Overweight Hyperlipidemia Annual physical exam Coronary arteriosclerosis Normal Pap smear Normal colonoscopy Mammogram normal Rodriguez esophagus FH: cholecystectomy Surgical History S/P cardiac catheterization History of cardiac cath Hx of cholecystectomy S/P AVR (aortic valve replacement) H/O colonoscopy Family History Mother CAD (coronary artery disease) PVD (peripheral vascular disease) Father Bladder cancer Brother CAD (coronary artery disease) PVD (peripheral vascular disease) Social History Household Members Other:: , 3 children, walks daily, retired, moved from [facility] 06/2019 Housing: House Alcohol intake: current Alcohol intake frequency: holidays/special occasions only Patient Tobacco Use Status: Former Tobacco user Quit Date: 1979 Years Smoked: Non-heavy smoker less than 1 year. Exposed to 2nd handsmoke growing up. e-Cigarette/Vaping Use: Never Used Current occupational status: retired Cognitive needs: No Hearing needs: No Vision needs: Yes Physical Exam Vital Signs: Last Vital Signs Pulse 58 04/22/23 12:46 BP 114/74 04/22/23 12:46 Pulse Ox 97 04/22/23 12:46 Oxygen Delivery Method Room Air 04/22/23 12:46 BMI result Body Mass Index 43.1 GENERAL APPEARANCE: in no acute distress. NECK/THYROID: no carotid bruit, no jugular venous distention. SKIN: no suspicious lesions, warm and dry. HEART: systolic murmur in aortic area, mechanical 2nd heart sound. LUNGS: clear to auscultation bilaterally. ABDOMEN: normal, bowel sounds present, soft, nontender, nondistended. EXTREMITIES: Trace edema. PERIPHERAL PULSES: equal. NEUROLOGIC: nonfocal, alert and oriented. PSYCH: mood/affect full range. Assessment & Plan Assessment & Plan (1) CAD (coronary artery disease): Comment: s/p LAD GREGORY 05/30, f/[place] [facility] Card[place] Code(s): I25.10 - Atherosclerotic heart disease of [place] coronary artery without angina pectoris (2) Stable angina: Code(s): I20.8 - Other forms of angina pectoris (3) S/P AVR (aortic valve replacement): Comment: [facility] mechanical on Coumadin, 07/2015 Code(s): Z95.2 - Presence of prosthetic heart valve Plan Pleasant 67-year-old female who is here for follow-up. She has background history of mechanical aortic valve replacement. She is on Coumadin. She also had dyspnea previously which led to cardiac catheterization and she had LAD PCI at that time. She has been taking Plavix and Coumadin at this point. Clinically she is stable right now. She has mean gradient across aortic valve a 28 mm Hg with peak velocity of 3.6 m/sec. The gradient is felt to be due to patient prosthesis mismatch. She has been clinically stable. No clinical heart failure. Blood pressure control is good. She will see us back in 6 months. Thank you for allowing me to participate in the care of your patient. Please feel free to contact me if you have any questions. Coding Level of Care Code Est Pt Level 4 (69931) Diagnoses CAD (coronary artery disease) I25.10 Stable angina I20.8 S/P AVR (aortic valve replacement) Z95.2
[2023-04-22 12:46] VITALS: BP 114/74; PULSE 58; O2SAT 97; BMI 43.1
== END 2023-04-22 13:26 | disposition home or self-care (01) ==
PROVIDERS: PCP Internal Medicine; Visit Provider Internal Medicine Cardiovascular Disease
DX: I25.10 Atherosclerotic heart disease of native coronary artery without angina pectoris (principal); Z95.2 Presence of prosthetic heart valve
CPT/HCPCS: 99214

== ENCOUNTER → 2023-04-22 12:34 | Outpatient (BNVA) | payer MEDICARE, SELFPAY | PROVIDERS: PCP Internal Medicine; Visit Provider Internal Medicine Cardiovascular Disease | DX: I25.118 Atherosclerotic heart disease of native coronary artery with other forms of angina pectoris (principal); Z95.2 Presence of prosthetic heart valve | CPT/HCPCS: 99212 ==

== ENCOUNTER 2023-05-08 09:40 | Outpatient (AMB) | payer MEDICARE, SELFPAY ==
[2023-05-08 09:46] LABS: Prothrombin Time Whole Bld POC 29.9 sec (11.1-13.5); ~PT, ~INR - Anti Coag Clinic 2.5 (0.9-1.1)
--- NOTE | 2023-05-08 09:52 | MHC.OFFVISCO ---
Intake Intake Visit Reasons: Anticoagulation Allergies No Known Allergies Allergy (Verified 05/08/23 09:40) Medication List - Last Reconciled 05/08/23 by Norma Rodriges RN acetaminophen (Tylenol Extra Strength) 1,000 mg PO Q6H cetirizine (Zyrtec) 10 mg PO DAILY PRN clopidogrel (Plavix) 75 mg PO DAILY furosemide 20 mg PO QAM guaifenesin ER (Mucinex) 600 mg PO BID PRN metoprolol tartrate 100 mg PO BID mv,Ca,min-folic acid-vit K1 400-20 mcg (One-A-Day Women's 50 Plus) 1 tab PO DAILY omeprazole 20 mg PO DAILY rosuvastatin 40 mg PO DAILY warfarin 5 mg See Protocol PO DIRECTED Nursing Note INR: 2.5 in therapeutic range Medications and supplements reviewed No changes in health, diet, medications, or supplements, Denies any signs and symptoms of bleeding or bruising or clotting. Bleeding, bruising, clotting discussed Nutritional guidance given Dose: KEEP SAME 5MG MWF/ 7.5MG X 4 DAYS F/U INR: 05/29/23 BEFORE SHE LEAVES FOR A TRIP Patient verbalizes understanding of instructions given Anti-Coag Initial Assessment Social Hx Patient Tobacco Use Status: Former Tobacco user Quit Date: 1979 alcohol intake: current Alcohol intake frequency: holidays/special occasions only Coding Level of Care Code Est Patient Level 1
== END 2023-05-08 09:54 | disposition home or self-care (01) ==
LOC: HO.ACS 09:40
PROVIDERS: PCP Internal Medicine; Visit Provider Internal Medicine
DX: Z79.01 Long term (current) use of anticoagulants (principal)

== ENCOUNTER → 2023-05-08 09:40 | Outpatient (BNVA) | payer MEDICARE, SELFPAY | PROVIDERS: PCP Internal Medicine; Visit Provider Internal Medicine | DX: Z95.2 Presence of prosthetic heart valve (principal); Z79.01 Long term (current) use of anticoagulants; Z51.81 Encounter for therapeutic drug level monitoring | CPT/HCPCS: 85610; 99211 ==

== ENCOUNTER 2023-05-29 09:34 | Outpatient (AMB) | payer MEDICARE, SELFPAY ==
[2023-05-29 09:48] LABS: Prothrombin Time Whole Bld POC 35.7 sec (11.1-13.5)
--- NOTE | 2023-05-29 09:52 | MHC.OFFVISCO ---
Intake Intake Visit Reasons: Anticoagulation Allergies No Known Allergies Allergy (Verified 05/29/23 09:41) Medication List - Last Reconciled 05/29/23 by Norma Rodriges RN acetaminophen (Tylenol Extra Strength) 1,000 mg PO Q6H cetirizine (Zyrtec) 10 mg PO DAILY PRN clopidogrel (Plavix) 75 mg PO DAILY furosemide 20 mg PO QAM guaifenesin ER (Mucinex) 600 mg PO BID PRN metoprolol tartrate 100 mg PO BID mv,Ca,min-folic acid-vit K1 400-20 mcg (One-A-Day Women's 50 Plus) 1 tab PO DAILY omeprazole 20 mg PO DAILY rosuvastatin 40 mg PO DAILY warfarin 5 mg See Protocol PO DIRECTED Nursing Note INR: 3.0 in therapeutic range Medications and supplements reviewed pt states she strained her back last week and has been taking more tylenol than usual and has eaten greens to offset the effects of tylenol had large family gatherings last week, she is well and traveling to [place] for [place] Denies any signs and symptoms of bleeding or bruising or clotting. Bleeding, bruising, clotting discussed Nutritional guidance given - eat greens when having more reds Dose: 5mg x 3 days/ 7.5mg x 4 days F/U INR: 4 weeks per pt request - she is traveling to [place] Patient verbalizes understanding of instructions given Anti-Coag Initial Assessment Social Hx Patient Tobacco Use Status: Former Tobacco user Quit Date: 1979 alcohol intake: current Alcohol intake frequency: holidays/special occasions only Coding Level of Care Code Est Patient Level 1 Diagnoses Current use of anticoagulant therapy Z79.01 Assessment & Plan Assessment & Plan (1) Current use of anticoagulant therapy: Comment: On Coumadin for mechanical aortic valve. INR target is 2-3. Code(s): Z79.01 - emt intermediate (current) use of anticoagulants Category: Medical
== END 2023-05-29 09:57 | disposition home or self-care (01) ==
LOC: HO.ACS 09:34
PROVIDERS: PCP Internal Medicine; Visit Provider Internal Medicine
DX: Z79.01 Long term (current) use of anticoagulants (principal)

== ENCOUNTER → 2023-05-29 09:34 | Outpatient (BNVA) | payer MEDICARE, SELFPAY | PROVIDERS: PCP Internal Medicine; Visit Provider Internal Medicine | DX: Z95.2 Presence of prosthetic heart valve (principal); Z51.81 Encounter for therapeutic drug level monitoring; Z79.01 Long term (current) use of anticoagulants | CPT/HCPCS: 85610; 99211 ==

== ENCOUNTER 2023-06-26 09:47 | Outpatient (AMB) | payer MEDICARE, SELFPAY ==
[2023-06-26 09:57] LABS: Prothrombin Time Whole Bld POC 44.1 sec (11.1-13.5); ~PT, ~INR - Anti Coag Clinic 3.7 (0.9-1.1)
--- NOTE | 2023-06-26 10:04 | MHC.OFFVISCO ---
Intake Intake Visit Reasons: Anticoagulation Allergies No Known Allergies Allergy (Verified 06/26/23 09:51) Medication List - Last Reconciled 06/26/23 by Nancy Matthews RN acetaminophen (Tylenol Extra Strength) 1,000 mg PO Q6H cetirizine (Zyrtec) 10 mg PO DAILY PRN clopidogrel (Plavix) 75 mg PO DAILY furosemide 20 mg PO QAM guaifenesin ER (Mucinex) 600 mg PO BID PRN metoprolol tartrate 100 mg PO BID mv,Ca,min-folic acid-vit K1 400-20 mcg (One-A-Day Women's 50 Plus) 1 tab PO DAILY omeprazole 20 mg PO DAILY rosuvastatin 40 mg PO DAILY warfarin 5 mg See Protocol PO DIRECTED Nursing Note PT.STATES THAT SHE HAS BEEN ON AN 18 DAY CRUISE AND HAS EATEN DIFFERENTLY NO CP,SOBMED CHANGES,FALLS OR SX OF BLEEDING. HOLD WARFARIN TODAY THEN RESUME USUAL DOSE AND FOLLOW-UP IN WEEKS. GOOD UNDERSTANDING VERB. Anti-Coag Initial Assessment Social Hx Patient Tobacco Use Status: Former Tobacco user Quit Date: 1979 alcohol intake: current Alcohol intake frequency: holidays/special occasions only Coding Level of Care Code Est Patient Level 1 Diagnoses Current use of anticoagulant therapy Z79.01 Assessment & Plan Assessment & Plan (1) Current use of anticoagulant therapy: Comment: On Coumadin for mechanical aortic valve. INR target is 2-3. Code(s): Z79.01 - assisted (current) use of anticoagulants Category: Medical
== END 2023-06-26 10:08 | disposition home or self-care (01) ==
LOC: HO.ACS 09:47
PROVIDERS: PCP Internal Medicine; Visit Provider Internal Medicine
DX: Z79.01 Long term (current) use of anticoagulants (principal)

== ENCOUNTER → 2023-06-26 09:47 | Outpatient (BNVA) | payer MEDICARE, SELFPAY | PROVIDERS: PCP Internal Medicine; Visit Provider Internal Medicine | DX: Z95.2 Presence of prosthetic heart valve (principal); Z79.01 Long term (current) use of anticoagulants; Z51.81 Encounter for therapeutic drug level monitoring | CPT/HCPCS: 85610; 99211 ==

== ENCOUNTER 2023-07-10 09:38 | Outpatient (AMB) | payer MEDICARE, SELFPAY ==
[2023-07-10 09:58] LABS: ~PT, ~INR - Anti Coag Clinic 3.3 (0.9-1.1)
--- NOTE | 2023-07-10 10:06 | MHC.OFFVISCO ---
Intake Intake Visit Reasons: Anticoagulation Allergies No Known Allergies Allergy (Verified 07/10/23 09:52) Medication List - Last Reconciled 07/10/23 by Norma Rodriges RN acetaminophen (Tylenol Extra Strength) 1,000 mg PO Q6H cetirizine (Zyrtec) 10 mg PO DAILY PRN clopidogrel (Plavix) 75 mg PO DAILY furosemide 20 mg PO QAM guaifenesin ER (Mucinex) 600 mg PO BID PRN metoprolol tartrate 100 mg PO BID mv,Ca,min-folic acid-vit K1 400-20 mcg (One-A-Day Women's 50 Plus) 1 tab PO DAILY omeprazole 20 mg PO DAILY rosuvastatin 40 mg PO DAILY warfarin 5 mg See Protocol PO DIRECTED Nursing Note INR 3.3? out of therapeutic range S/P TRIP FEW WEEKS AGO Medications and supplements reviewed Patient status: HAS HAD MORE TYLENOL Medications or supplements: RX THE SAME Diet: GOOD - LIKES SALADS Denies any signs and symptoms of bleeding or clotting or unusual bruising Bleeding, bruising, clotting discussed Nutritional guidance given: WHEN TAKING MORE TYLENOL THAN USUAL, EAT COOKED GREENS TO LOWER THE INR MORE THAN RAW GREENS Dose: KEEP SAME DOSE DUE TO VALVE 5MG MWF/ 7.5MG X 4 DAYS F/U INR Date : 2 WEEKS THEN IF STABLE GO 3-4 WEEKS?? Patient verbalizing understanding of instructions given. Anti-Coag Initial Assessment Social Hx Patient Tobacco Use Status: Former Tobacco user Quit Date: 1979 alcohol intake: current Alcohol intake frequency: holidays/special occasions only Coding Level of Care Code Est Patient Level 1 Diagnoses Current use of anticoagulant therapy Z79.01 Assessment & Plan Assessment & Plan (1) Current use of anticoagulant therapy: Comment: On Coumadin for mechanical aortic valve. INR target is 2-3. Code(s): Z79.01 - longterm (current) use of anticoagulants Category: Medical
== END 2023-07-10 10:09 | disposition home or self-care (01) ==
LOC: HO.ACS 09:38
PROVIDERS: PCP Internal Medicine; Visit Provider Internal Medicine
DX: Z79.01 Long term (current) use of anticoagulants (principal)

== ENCOUNTER → 2023-07-10 09:38 | Outpatient (BNVA) | payer MEDICARE, SELFPAY | PROVIDERS: PCP Internal Medicine; Visit Provider Internal Medicine | DX: Z95.2 Presence of prosthetic heart valve (principal); Z79.01 Long term (current) use of anticoagulants; Z51.81 Encounter for therapeutic drug level monitoring | CPT/HCPCS: 85610; 99211 ==

== ENCOUNTER 2023-07-24 09:46 | Outpatient (AMB) | payer MEDICARE, SELFPAY ==
[2023-07-24 10:02] LABS: Prothrombin Time Whole Bld POC 28.9 sec (11.1-13.5); ~PT, ~INR - Anti Coag Clinic 2.4 (0.9-1.1)
--- NOTE | 2023-07-24 10:03 | MHC.OFFVISCO ---
Intake Intake Visit Reasons: Anticoagulation Allergies No Known Allergies Allergy (Verified 07/24/23 09:57) Medication List - Last Reconciled 07/24/23 by Anabella Rosas, RN acetaminophen (Tylenol Extra Strength) 1,000 mg PO Q6H cetirizine (Zyrtec) 10 mg PO DAILY PRN clopidogrel (Plavix) 75 mg PO DAILY furosemide 20 mg PO QAM guaifenesin ER (Mucinex) 600 mg PO BID PRN metoprolol tartrate 100 mg PO BID mv,Ca,min-folic acid-vit K1 400-20 mcg (One-A-Day Women's 50 Plus) 1 tab PO DAILY omeprazole 20 mg PO DAILY rosuvastatin 40 mg PO DAILY warfarin 5 mg See Protocol PO DIRECTED Nursing Note INR: 3.4 in therapeutic range Medications and supplements reviewed No changes in health, diet, medications, or supplements, Denies any signs and symptoms of bleeding or bruising or clotting. Bleeding, bruising, clotting discussed Nutritional guidance given Dose: 5mg 3 days and 7.5mg X4 days F/U INR: 3 weeks Patient verbalizes understanding of instructions given Anti-Coag Initial Assessment Social Hx Patient Tobacco Use Status: Former Tobacco user Quit Date: 1979 alcohol intake: current Alcohol intake frequency: holidays/special occasions only Coding Level of Care Code Est Patient Level 1 Diagnoses Current use of anticoagulant therapy Z79.01 Assessment & Plan Assessment & Plan (1) Current use of anticoagulant therapy: Comment: On Coumadin for mechanical aortic valve. INR target is 2-3. Code(s): Z79.01 - terminal manager (current) use of anticoagulants Category: Medical
== END 2023-07-24 10:07 | disposition home or self-care (01) ==
LOC: HO.ACS 09:46
PROVIDERS: PCP Internal Medicine; Visit Provider Internal Medicine
DX: Z79.01 Long term (current) use of anticoagulants (principal)

== ENCOUNTER → 2023-07-24 09:46 | Outpatient (BNVA) | payer MEDICARE, SELFPAY | PROVIDERS: PCP Internal Medicine; Visit Provider Internal Medicine | DX: Z95.2 Presence of prosthetic heart valve (principal); Z79.01 Long term (current) use of anticoagulants; Z51.81 Encounter for therapeutic drug level monitoring | CPT/HCPCS: 85610; 99211 ==

== ENCOUNTER → 2023-08-14 09:55 | Outpatient (BNVA) | payer MEDICARE, SELFPAY | PROVIDERS: PCP Internal Medicine; Visit Provider Internal Medicine | DX: Z95.2 Presence of prosthetic heart valve (principal); Z79.01 Long term (current) use of anticoagulants; Z51.81 Encounter for therapeutic drug level monitoring | CPT/HCPCS: 85610; 99211 ==

== ENCOUNTER 2023-08-28 09:59 | Outpatient (AMB) | payer MEDICARE, SELFPAY ==
[2023-08-28 10:07] LABS: Prothrombin Time Whole Bld POC 33.4 sec (11.1-13.5); ~PT, ~INR - Anti Coag Clinic 2.8 (0.9-1.1)
--- NOTE | 2023-08-28 10:13 | MHC.OFFVISCO ---
Intake Intake Visit Reasons: Anticoagulation Allergies No Known Allergies Allergy (Verified 08/28/23 10:01) Medication List - Last Reconciled 08/28/23 by Nancy Matthews RN acetaminophen (Tylenol Extra Strength) 1,000 mg PO Q6H cetirizine (Zyrtec) 10 mg PO DAILY PRN clopidogrel 75 mg PO DAILY furosemide 20 mg PO QAM guaifenesin ER (Mucinex) 600 mg PO BID PRN metoprolol tartrate 100 mg PO BID mv,Ca,min-folic acid-vit K1 400-20 mcg (One-A-Day Women's 50 Plus) 1 tab PO DAILY omeprazole 20 mg PO DAILY rosuvastatin 40 mg PO DAILY warfarin See Protocol 5 mg orally Take 5mg on M,W,F and 1.5 tabs on all other 4 days. Subject to dosage increase based in INR results.; Nursing Note NO CP,SOB,DIET/MED CHANGES,FALLS OR SX OF BLEEDING. CONTINUE PRESENT DOSE AND FOLLOW-UP IN 4 WEEKS(PRIOR TO CRUISE) GOOD UNDERSTANDING OF DOSING INSTR. Anti-Coag Initial Assessment Social Hx Patient Tobacco Use Status: Former Tobacco user Quit Date: 1979 alcohol intake: current Alcohol intake frequency: holidays/special occasions only Coding Level of Care Code Est Patient Level 1 Diagnoses Current use of anticoagulant therapy Z79.01 Assessment & Plan Assessment & Plan (1) Current use of anticoagulant therapy: Comment: On Coumadin for mechanical aortic valve. INR target is 2-3. Code(s): Z79.01 - MCC (current) use of anticoagulants Category: Medical
== END 2023-08-28 10:18 | disposition home or self-care (01) ==
LOC: HO.ACS 09:59
PROVIDERS: PCP Internal Medicine; Visit Provider Internal Medicine
DX: Z79.01 Long term (current) use of anticoagulants (principal)

== ENCOUNTER → 2023-08-28 09:59 | Outpatient (BNVA) | payer MEDICARE, SELFPAY | PROVIDERS: PCP Internal Medicine; Visit Provider Internal Medicine | DX: Z95.2 Presence of prosthetic heart valve (principal); Z79.01 Long term (current) use of anticoagulants; Z51.81 Encounter for therapeutic drug level monitoring | CPT/HCPCS: 85610; 99211 ==

== ENCOUNTER 2023-09-19 09:38 | Outpatient (REF) | payer MEDICARE, SELFPAY ==
[2023-09-19 13:09] LABS: MANUAL DIFF FLAG NO
[2023-09-19 13:29] LABS: Basophils Absolute Auto 0.1 X10*3/uL (0.0-0.2); Basophils Percent Auto 0.7 % (0-2); Eosinophils Absolute Auto 0.2 X10*3/uL (0.0-0.4); Eosinophils Percent Auto 2.1 % (0-4); Hematocrit 40.4 % (37.0-47.0); Imm Gran Abs Auto 0.02 X10*3/uL (0.00-0.03); Imm Gran Pct Auto 0.2 % (0.0-0.4); Lymphocytes Absolute Auto 1.8 X10*3/uL (1.2-4.9); Lymphocytes Percent Auto 21.5 % (20-40); Mean Corpuscular HGB Conc 32.2 g/dl (31.0-35.0); Mean Corpuscular Hemoglobin 26.5 pg (27.0-33.0); Mean Corpuscular Volume 82.4 fL (80.0-98.0); Monocytes Absolute Auto 0.6 X10*3/uL (0.1-1.2); Monocytes Percent Auto 7.1 % (2-11); Neutrophils Absolute Auto 5.6 x10*3/uL (2.0-8.3); Neutrophils Percent Auto 68.4 % (45-73); Platelet Count 313 X10*3/uL (160-400); Red Cell Distribution Width 14.3 % (11.0-16.0); White Blood Count 8.1 X10*3/uL (4.8-10.8)
[2023-09-19 13:33] LABS: Estimated Average Glucose 126 mg/dL
[2023-09-19 13:49] LABS: Alanine Aminotransferase 18 U/L (0-31); Albumin Level 3.9 g/dL (3.5-5.0); Alkaline Phosphatase 110 U/L (39-117); Anion Gap 13 (12-20); Aspartate Amino Transferase 24 U/L (5-31); Bilirubin Total 0.4 mg/dL (0.0-1.0); Blood Urea Nitrogen 13 mg/dL (9-16); Calcium 9.4 mg/dL (8.4-10.2); Carbon Dioxide 25 mmol/L (22-29); Chloride 106 mmol/L (96-108); Cholesterol 173 mg/dL (<200); Estimated Glomerular Filt Rate > 60; Glucose Fasting 124 mg/dL (60-99); HDL Cholesterol 51 mg/dL (>40); LDL Cholesterol Calculated 80 mg/dL (<100); Potassium 3.7 mmol/L (3.3-5.1); Sodium 140 mmol/L (135-145); Total Protein 7.8 g/dL (6.5-8.0); Triglycerides 214 mg/dL (<150)
[2023-09-19 14:04] LABS: TSH reflex Free T4 0.81 uIU/mL (0.32-4.0)
== END 2023-09-19 09:39 | disposition home or self-care (01) ==
LOC: HO.HMGCLDS 09:38
PROVIDERS: PCP Internal Medicine; Visit Provider Internal Medicine
DX: I25.10 Atherosclerotic heart disease of native coronary artery without angina pectoris (principal); R73.9 Hyperglycemia, unspecified; E78.5 Hyperlipidemia, unspecified; E66.3 Overweight
CPT/HCPCS: 36415; 80053; 80061; 83036; 84443; 85025

== ENCOUNTER 2023-09-23 12:21 | Outpatient (AMB) | payer MEDICARE, SELFPAY ==
[2023-09-23 12:22] VITALS: BP 126/78; PULSE 81; O2SAT 98; BMI 42.4
--- NOTE | 2023-09-23 12:22 | A.OFFPC_ITS ---
Vital Signs 09/23/23 12:22 Height 5 ft 5 in Weight 255 lb BMI 42.4 BP 126/78 Blood Pressure Location Lt brachial Position Sitting Pulse 81 Pulse Source Pulse Oximeter Pulse Oximetry (%) 98 Oxygen Delivery Method Room Air Intake Visit Reasons: 6m follow up Intake Note: Pt is here today for 6 months follow up visit. Allergies No Known Allergies Allergy (Verified 09/23/23 12:24) Medication List - Last Reconciled 09/23/23 by Lizzie Hummel MD acetaminophen (Tylenol Extra Strength) 1,000 mg PO Q6H cetirizine (Zyrtec) 10 mg PO DAILY PRN clopidogrel 75 mg PO DAILY furosemide 20 mg PO QAM guaifenesin ER (Mucinex) 600 mg PO BID PRN metoprolol tartrate 100 mg PO BID mv,Ca,min-folic acid-vit K1 400-20 mcg (One-A-Day Women's 50 Plus) 1 tab PO DAILY omeprazole 20 mg PO DAILY rosuvastatin 40 mg PO DAILY warfarin 5 mg See Protocol PO DIRECTED 14 days Tobacco use date assessed: 09/23/23 Fall risk assessment: No Falls in past year Last assessed Fall Risk: 09/23/23 Dental Screening Dental Screen Date: 09/23/23 Did you have a dental visit in the last 12 months?: Yes Did you have a dental problem in the last 6 months where you did not have access to dental care?: No Was dental information given to patient?: Patient has dentist HPI 6m follow up HPI Details Patient presents for the follow-up on hypertension hyperlipidemia CAD. Patient is going on a cruise to [place]. [facility] Medical History (Updated 09/23/23 @ 13:11 by Lizzie Hummel MD) Greater trochanteric pain syndrome Hyperglycemia Hyperparathyroidism Overweight Hyperlipidemia Annual physical exam Normal Pap smear Normal colonoscopy Mammogram normal Rodriguez esophagus FH: cholecystectomy Surgical History S/P cardiac catheterization History of cardiac cath Hx of cholecystectomy S/P AVR (aortic valve replacement) H/O colonoscopy Family History Mother CAD (coronary artery disease) PVD (peripheral vascular disease) Father Bladder cancer Brother CAD (coronary artery disease) PVD (peripheral vascular disease) Social History Household Members Other:: , 3 children, walks daily, retired, moved from [facility] 06/2019 Housing: House Alcohol intake: current Alcohol intake frequency: holidays/special occasions only Patient Tobacco Use Status: Former Tobacco user Quit Date: 1979 Smoked: Non-heavy smoker less than 1 year. Exposed to 2nd handsmoke growing up. e-Cigarette/Vaping Use: Never Used service: No Current occupational status: retired Cognitive needs: No Hearing needs: No Vision needs: Yes Questionnaire Thrive Questionnaire Date Thrive assessed: 12/26/22 AUDIT C Alcohol Use Questionnaire (AUDIT-C) 1. How often do you have a drink containing alcohol?: 2-4 times a month 2. How many drinks containing alcohol do you have on a typical day when you are drinking?: 1 or 2 3. How often do you have six or more drinks on one occasion?: Never Total Score: 2 EDUARDA-7 AMB Questionnaire EDUARDA-7 Date EDUARDA - 7 assessed: 12/26/22 Feeling nervous, anxious, or on edge: 0 = Not at all Not being able to stop or control worryin = Not at all Worrying too much about different things: 0 = Not at all Trouble relaxin = Not at all Being so restless that it is hard to sit still: 0 = Not at all Becoming easily annoyed or irritable: 0 = Not at all Feeling afraid as if something awful might happen: 0 = Not at all Total EDUARDA-7 score (0-4 normal; 5-9 mild; 10-14 moderate; 15-21 severe): 0 Source: Developed by Drs. Hemanth Montana, Evita Gongora, Waqar Farrell and colleagues, with an educational jabier from [employer]. Review of Systems Const All systems reviewed & are unremarkable except as noted in HPI and below Eyes Reports no additional complaints ENT Reports no additional complaints Card Reports no additional complaints Resp Reports no additional complaints GI Reports no additional complaints Reports no additional complaints Physical exam (Primary Care) Vital Signs: Last Vital Signs Pulse 81 09/23/23 12:22 BP 126/78 09/23/23 12:22 Pulse Ox 98 09/23/23 12:22 Oxygen Delivery Method Room Air 09/23/23 12:22 BMI result Body Mass Index 42.4 Tobacco/Smoking Status: Tobacco use Status Tobacco use date assessed 09/23/23 09/23/23 12:28 Patient Tobacco Use Status Former Tobacco user 09/23/23 12:28 e-Cigarette/Vaping Use Never Used 09/23/23 12:28 Thrive Assessment: Date of Thrive Assessment Date Thrive assessed 12/26/22 09/23/23 12:28 Const General: no acute distress HENMT Face and sinus: Yes normal facial exam Eyes General: appearance normal, both eyes and all related structures Neck Neck: Yes supple Resp Effort & Inspection: normal respiratory effort Auscultation: clear to auscultation bilaterally Cardio Rhythm: regular rhythm Heart sounds: S1 normal heart sound present and S2 normal heart sound present Assessment and Plan Assessment & Plan (1) S/P cardiac catheterization: Comment: 05/30/2021 showing mid LAD 90% stenosis, BILLY 3 flow, GREGORY placed, left circumflex OM 1, proximal 40% stenosis, RCA mild diffuse disease, mid ISR in the ostial RCA stent Code(s): Z98.890 - Other specified postprocedural states Plan: CONTINUE STATIN AND METOPROLOL (2) Hyperglycemia: Comment: A1C 6.0 10/01 Code(s): R73.9 - Hyperglycemia, unspecified Plan: ADA diet increase exercise weight loss discussed with the patient return in 6 months with a fasting labs before (3) Hyperlipidemia: Code(s): E78.5 - Hyperlipidemia, unspecified Plan: Continue statin (4) Overweight: Code(s): E66.3 - Overweight Plan: Weight loss discussed with the patient (5) S/P AVR (aortic valve replacement): Comment: [facility] mechanical on Coumadin, 07/2015 Code(s): Z95.2 - Presence of prosthetic heart valve (6) Hyperparathyroidism: Comment: f/u with Endo Code(s): E21.3 - Hyperparathyroidism, unspecified Orders: Orders Comprehensive [place]. Panel Fast 6 Months E21.3 - Hyperparathyroidism, unspecified, E78.5 - Hyperlipidemia, unspecified, R73.9 - Hyperglycemia, unspecified Hemoglobin A1c 6 Months E21.3 - Hyperparathyroidism, unspecified, E78.5 - Hyperlipidemia, unspecified, R73.9 - Hyperglycemia, unspecified Lipid Panel 6 Months E21.3 - Hyperparathyroidism, unspecified, E78.5 - Hyperlipidemia, unspecified, R73.9 - Hyperglycemia, unspecified Complete Blood Count Auto Diff 6 Months E21.3 - Hyperparathyroidism, unspecified, E78.5 - Hyperlipidemia, unspecified, R73.9 - Hyperglycemia, unspecified Microalbumin, Random (w Creat) 6 Months E21.3 - Hyperparathyroidism, unspecified, E78.5 - Hyperlipidemia, unspecified, R73.9 - Hyperglycemia, unspecified Coding Level of Care Code Est Pt Level 4 (26518) Diagnoses S/P cardiac catheterization Z98.890 Hyperglycemia R73.9 Hyperlipidemia E78.5 Overweight E66.3 S/P AVR (aortic valve replacement) Z95.2 Hyperparathyroidism E21.3
== END 2023-09-23 13:11 | disposition home or self-care (01) ==
PROVIDERS: PCP Internal Medicine; Visit Provider Internal Medicine
DX: E21.3 Hyperparathyroidism, unspecified (principal); Z98.890 Other specified postprocedural states; R73.9 Hyperglycemia, unspecified; E78.5 Hyperlipidemia, unspecified; E66.3 Overweight; Z95.2 Presence of prosthetic heart valve
CPT/HCPCS: 99214

== ENCOUNTER 2023-09-25 09:48 | Outpatient (AMB) | payer MEDICARE, SELFPAY ==
[2023-09-25 09:58] LABS: Prothrombin Time Whole Bld POC 36.6 sec (11.1-13.5)
--- NOTE | 2023-09-25 10:10 | MHC.OFFVISCO ---
Intake Intake Visit Reasons: Anticoagulation Allergies No Known Allergies Allergy (Verified 09/25/23 09:52) Medication List - Last Reconciled 09/25/23 by Nancy Matthews, RN acetaminophen (Tylenol Extra Strength) 1,000 mg PO Q6H cetirizine (Zyrtec) 10 mg PO DAILY PRN clopidogrel 75 mg PO DAILY furosemide 20 mg PO QAM guaifenesin ER (Mucinex) 600 mg PO BID PRN metoprolol tartrate 100 mg PO BID mv,Ca,min-folic acid-vit K1 400-20 mcg (One-A-Day Women's 50 Plus) 1 tab PO DAILY omeprazole 20 mg PO DAILY rosuvastatin 40 mg PO DAILY warfarin 5 mg See Protocol PO DIRECTED 14 days Nursing Note NO CP,SOB,DIET/MED CHANGES,FALLS OR SX OF BLEEDING. CONTINUE PRESENT DOSE AND FOLLOW-UP IN 4 WEEKS AFTER RETURN FROM [place]. GOOD UNDERSTANFING OF DOSING INSTR. Anti-Coag Initial Assessment Social Hx Patient Tobacco Use Status: Former Tobacco user Quit Date: 1979 alcohol intake: current Alcohol intake frequency: holidays/special occasions only Coding Level of Care Code Est Patient Level 1 Diagnoses Current use of anticoagulant therapy Z79.01 Assessment & Plan Assessment & Plan (1) Current use of anticoagulant therapy: Comment: On Coumadin for mechanical aortic valve. INR target is 2-3. Code(s): Z79.01 - watermaster (current) use of anticoagulants Category: Medical
== END 2023-09-25 10:11 | disposition home or self-care (01) ==
LOC: HO.ACS 09:48
PROVIDERS: PCP Internal Medicine; Visit Provider Internal Medicine
DX: Z79.01 Long term (current) use of anticoagulants (principal)

== ENCOUNTER → 2023-09-25 09:48 | Outpatient (BNVA) | payer MEDICARE, SELFPAY | PROVIDERS: PCP Internal Medicine; Visit Provider Internal Medicine | DX: Z95.2 Presence of prosthetic heart valve (principal); Z79.01 Long term (current) use of anticoagulants; Z51.81 Encounter for therapeutic drug level monitoring | CPT/HCPCS: 85610; 99211 ==

== ENCOUNTER 2023-10-23 12:55 | Outpatient (AMB) | payer MEDICARE, SELFPAY ==
[2023-10-23 13:00] VITALS: BP 124/64; PULSE 72; BMI 42.3
--- NOTE | 2023-10-23 13:00 | A.OFFVIS_ITS ---
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: No Accompanied by: Self / Same As Patient Allergies No Known Allergies Allergy (Verified 09/25/23 09:52) Medication List - Last Reconciled 10/23/23 by You Prince MD acetaminophen (Tylenol Extra Strength) 1,000 mg PO Q6H cetirizine (Zyrtec) 10 mg PO DAILY PRN clopidogrel 75 mg PO DAILY furosemide 20 mg PO QAM guaifenesin ER (Mucinex) 600 mg PO BID PRN metoprolol tartrate 100 mg PO BID mv,Ca,min-folic acid-vit K1 400-20 mcg (One-A-Day Women's 50 Plus) 1 tab PO DAILY omeprazole 20 mg PO DAILY rosuvastatin 40 mg PO DAILY warfarin 5 mg See Protocol PO DIRECTED 14 days HPI Comments Details: 68-year-old female with background history of coronary artery disease with single-vessel PCI as well as severe aortic stenosis for which she underwent mechanical aortic valve replacement 2015 at [facility] in [facility]. She said she was following with her web development manager near [place] regularly and was doing well. Recently she moved to this area to live close to family. Old records reviewed. In August 2013 she had 2 episodes of left arm and chest pain. She had moderate aortic stenosis at that time. She underwent stress testing which showed transient ischemic dilatation. Subsequent to that she underwent cardiac catheterization which confirmed moderate aortic stenosis on showed ostial right coronary artery stenosis which was treated with bare metal stent. She also in a mid LAD lesion which was thought to be intermediate but no FFR was performed. In July 2015 she had echocardiography which showed severe aortic stenosis and she underwent aortic valve replacement with 19 mm [facility] medical mechanical aortic valve. 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 On last visit she was complaining of shortness of breath. After discussion she was sent for echocardiography. Initially we decided to a stress test but because she has dyspnea on exertion with her coronary disease in the past we decided to a cardiac catheterization. Cardiac catheterization showed mid LAD 90% stenosis which was treated with drug-eluting stent. A 3 x 18 tabby resolute drug-eluting stent was placed. Echo showed normal LV systolic function with moderate left ventricular hypertrophy. Filling pressures were indeterminate. Aortic valve had high velocities of 3.49 m/sec with aortic valve area 1.29 cm2. Findings were consistent with her known diagnosis of patient prosthesis mismatch. After cardiac catheterization her symptoms have improved completely. She is here for follow-up today and has been walking and is back to her baseline. No bleeding issues. Continues to be stable on follow-up without any significant issues. No bleeding concerns. 12/17/22: She returns for follow-up. She has been taking medication regularly. Her blood pressure control is good. She is complaining of some dyspnea specially when she is going up stairs. She has knee arthritis and feels limited by pain. No orthopnea or PND. She has mild peripheral edema and is currently using 10 mg of Lasix daily. She is on Coumadin for mechanical aortic valve in the past. 04/22/2023: She returns for follow-up. She has been doing well and has been physically active. No chest discomfort shortness of breath. As mentioned above dyspnea is her anginal equivalent. No bleeding concerns. She is taking Plavix and Coumadin. She has a mechanical aortic valve. 10/23/23: She returns for follow-up. She has been doing well. She is returned from [place] after 2 week vacation. She walked a lot and had no symptoms. In particular no chest pain or shortness of breath. Blood pressure is well controlled. She is taking Coumadin and Plavix and has no bleeding concerns. [facility] Medical History (Updated 09/23/23 @ 13:11 by Lizzie Hummel MD) Greater trochanteric pain syndrome Hyperglycemia Hyperparathyroidism Overweight Hyperlipidemia Annual physical exam Normal Pap smear Normal colonoscopy Mammogram normal Rodriguez esophagus FH: cholecystectomy Surgical History S/P cardiac catheterization History of cardiac cath Hx of cholecystectomy S/P AVR (aortic valve replacement) H/O colonoscopy Family History Mother CAD (coronary artery disease) PVD (peripheral vascular disease) Father Bladder cancer Brother CAD (coronary artery disease) PVD (peripheral vascular disease) Social History Household Members Other:: , 3 children, walks daily, retired, moved from [facility] 06/2019 Housing: House Alcohol intake: current Alcohol intake frequency: holidays/special occasions only Patient Tobacco Use Status: Former Tobacco user Quit Date: 1979 Years Smoked: Non-heavy smoker less than 1 year. Exposed to 2nd handsmoke growing up. e-Cigarette/Vaping Use: Never Used service: No Current occupational status: retired Cognitive needs: No Hearing needs: No Vision needs: Yes Review of Systems Const Denies chills, Denies fatigue, Denies fever(s), Denies frequent falls, Denies weakness, Denies weight gain and Denies weight loss ENT Denies dizziness Card Denies chest pain, Denies leg edema, Denies lightheadedness, Denies palpitations, Denies dyspnea and Denies dyspnea on exertion Resp Denies cough, Denies dyspnea and Denies dyspnea on exertion GI Denies hematochezia Musc Denies abnormal gait, Denies muscle weakness, Denies numbness, Denies radiating pain into limb and Denies tingling Neuro Denies abnormal gait, Denies dizziness, Denies frequent falls, Denies numbness, Denies tingling and Denies weakness Endo Denies fatigue and Denies palpitations Physical Exam Vital Signs: Last Vital Signs Pulse 72 10/23/23 13:00 BP 124/64 10/23/23 13:00 BMI result Body Mass Index 42.3 GENERAL APPEARANCE: in no acute distress. NECK/THYROID: no carotid bruit, no jugular venous distention. SKIN: no suspicious lesions, warm and dry. HEART: systolic murmur in aortic area, mechanical 2nd heart sound. LUNGS: clear to auscultation bilaterally. ABDOMEN: normal, bowel sounds present, soft, nontender, nondistended. EXTREMITIES: Trace edema. PERIPHERAL PULSES: equal. NEUROLOGIC: nonfocal, alert and oriented. PSYCH: mood/affect full range. Office Procedures EKG Details: Sinus rhythm 72 beats per minute, ST-T wave changes inferior lateral leads with differentials of ischemia versus left ventricular hypertrophy, QTC 427 milliseconds. [id number], Complete Assessment & Plan Assessment & Plan (1) S/P AVR (aortic valve replacement): Comment: [facility] mechanical on Coumadin, 07/2015 Code(s): Z95.2 - Presence of prosthetic heart valve Category: Medical (2) CAD (coronary artery disease): Comment: s/p LAD GREGORY 05/30, f/u [facility] Cardiology Code(s): I25.10 - Atherosclerotic heart disease of [place] coronary artery without angina pectoris Category: Medical Plan [age] year female who is here for follow-up. She has known history of mechanical aortic valve replacement in the past and coronary artery disease. She has stable angina. Clinically not in heart failure. Blood pressure is well controlled. She is on Coumadin Plavix currently. She has patient prosthesis mismatch and gradient across the aortic valve. Clinically she has been stable. We will continue to monitor this with yearly echocardiography. Follow-up in 6 months. Thank you for allowing me to participate in the care of your patient. Please feel free to contact me if you have any questions. Coding Level of Care Code Est Pt Level 4 (76304) Diagnoses S/P AVR (aortic valve replacement) Z95.2 CAD (coronary artery disease) I25.10 CPT Codes EKG - CPT: [id number], Complete ([id number])
== END 2023-10-23 13:22 | disposition home or self-care (01) ==
PROVIDERS: PCP Internal Medicine; Visit Provider Internal Medicine Cardiovascular Disease
DX: Z95.2 Presence of prosthetic heart valve (principal); I25.10 Atherosclerotic heart disease of native coronary artery without angina pectoris
CPT/HCPCS: 93010; 99214

== ENCOUNTER → 2023-10-23 12:55 | Outpatient (BNVA) | payer MEDICARE, SELFPAY | PROVIDERS: PCP Internal Medicine; Visit Provider Internal Medicine Cardiovascular Disease | DX: I25.10 Atherosclerotic heart disease of native coronary artery without angina pectoris (principal); Z95.2 Presence of prosthetic heart valve; Z79.01 Long term (current) use of anticoagulants; Z51.81 Encounter for therapeutic drug level monitoring | CPT/HCPCS: 85610; 93005; 99211; 99212 ==

== ENCOUNTER 2023-10-23 13:27 | Outpatient (AMB) | payer MEDICARE, SELFPAY ==
--- NOTE | 2023-10-23 13:41 | MHC.OFFVISCO ---
Intake Intake Visit Reasons: Anticoagulation Allergies No Known Allergies Allergy (Verified 10/23/23 13:29) Medication List - Last Reconciled 10/23/23 by Nancy Matthews RN acetaminophen (Tylenol Extra Strength) 1,000 mg PO Q6H cetirizine (Zyrtec) 10 mg PO DAILY PRN clopidogrel 75 mg PO DAILY furosemide 20 mg PO QAM guaifenesin ER (Mucinex) 600 mg PO BID PRN metoprolol tartrate 100 mg PO BID mv,Ca,min-folic acid-vit K1 400-20 mcg (One-A-Day Women's 50 Plus) 1 tab PO DAILY omeprazole 20 mg PO DAILY rosuvastatin 40 mg PO DAILY warfarin 5 mg See Protocol PO DIRECTED 14 days Nursing Note NO CP,SOB,DIET/MED CHANGES,FALLS OR SX OF BLEEDING., CONTINUE PRESENT DOSE AND FOLLOW-UP IN 4 WEEKS. GOOD UNDERSTANDING OF DOSING INSTR. Anti-Coag Initial Assessment Social Hx Patient Tobacco Use Status: Former Tobacco user Quit Date: 1979 alcohol intake: current Alcohol intake frequency: holidays/special occasions only Coding Level of Care Code Est Patient Level 1 Diagnoses Current use of anticoagulant therapy Z79.01 Results AMB INR Fingerstick AMB INR Fingerstick 2.9 Last Edit by Nancy Matthews RN on 10/23/23 13:37 Assessment & Plan Assessment & Plan (1) Current use of anticoagulant therapy: Comment: On Coumadin for mechanical aortic valve. INR target is 2-3. Code(s): Z79.01 - senior care (current) use of anticoagulants Category: Medical
[2023-10-23 13:44] LABS: Prothrombin Time Whole Bld POC 34.5 sec (11.1-13.5); ~PT, ~INR - Anti Coag Clinic 2.9 (0.9-1.1)
== END 2023-10-23 13:43 | disposition home or self-care (01) ==
LOC: HO.ACS 13:27
PROVIDERS: PCP Internal Medicine; Visit Provider Internal Medicine
DX: Z79.01 Long term (current) use of anticoagulants (principal)

== ENCOUNTER 2023-11-20 09:55 | Outpatient (AMB) | payer MEDICARE, SELFPAY ==
[2023-11-20 10:08] LABS: Prothrombin Time Whole Bld POC 33.3 sec (11.1-13.5); ~PT, ~INR - Anti Coag Clinic 2.8 (0.9-1.1)
--- NOTE | 2023-11-20 10:17 | MHC.OFFVISCO ---
Intake Intake Visit Reasons: Anticoagulation Allergies No Known Allergies Allergy (Verified 11/20/23 10:03) Medication List - Last Reconciled 11/20/23 by Nancy Matthews RN acetaminophen (Tylenol Extra Strength) 1,000 mg PO Q6H cetirizine (Zyrtec) 10 mg PO DAILY PRN clopidogrel 75 mg PO DAILY furosemide 20 mg PO QAM guaifenesin ER (Mucinex) 600 mg PO BID PRN metoprolol tartrate 100 mg PO BID mv,Ca,min-folic acid-vit K1 400-20 mcg (One-A-Day Women's 50 Plus) 1 tab PO DAILY omeprazole 20 mg PO DAILY rosuvastatin 40 mg PO DAILY warfarin 5 mg See Protocol PO DIRECTED 14 days Nursing Note NO CP,SOB,DIET/MED CHANGES,FALLS OR SX OF BLEEDING. CONTINUE PRESENT DOSE AND FOLLOW-UP IN 4 WEEKS. GOOD UNDERSTANDING OF DOSING INSTR. Anti-Coag Initial Assessment Social Hx Patient Tobacco Use Status: Former Tobacco user alcohol intake: current Alcohol intake frequency: holidays/special occasions only Coding Level of Care Code Est Patient Level 1 Diagnoses Current use of anticoagulant therapy Z79.01 Assessment & Plan Assessment & Plan (1) Current use of anticoagulant therapy: Comment: On Coumadin for mechanical aortic valve. INR target is 2-3. Code(s): Z79.01 - half-way (current) use of anticoagulants Category: Medical
== END 2023-11-20 10:18 | disposition home or self-care (01) ==
LOC: HO.ACS 09:55
PROVIDERS: PCP Internal Medicine; Visit Provider Internal Medicine
DX: Z79.01 Long term (current) use of anticoagulants (principal)

== ENCOUNTER → 2023-11-20 09:55 | Outpatient (BNVA) | payer MEDICARE, SELFPAY | PROVIDERS: PCP Internal Medicine; Visit Provider Internal Medicine | DX: Z95.2 Presence of prosthetic heart valve (principal); Z79.01 Long term (current) use of anticoagulants; Z51.81 Encounter for therapeutic drug level monitoring | CPT/HCPCS: 85610; 99211 ==

== ENCOUNTER 2023-12-18 09:36 | Outpatient (AMB) | payer MEDICARE, SELFPAY ==
[2023-12-18 09:46] LABS: Prothrombin Time Whole Bld POC 31.4 sec (11.1-13.5); ~PT, ~INR - Anti Coag Clinic 2.6 (0.9-1.1)
--- NOTE | 2023-12-18 09:56 | MHC.OFFVISCO ---
Intake Intake Visit Reasons: Anticoagulation Allergies No Known Allergies Allergy (Verified 12/18/23 09:40) Medication List - Last Reconciled 12/18/23 by Nancy Matthews RN acetaminophen (Tylenol Extra Strength) 1,000 mg PO Q6H cetirizine (Zyrtec) 10 mg PO DAILY PRN clopidogrel 75 mg PO DAILY furosemide 20 mg PO QAM guaifenesin ER (Mucinex) 600 mg PO BID PRN metoprolol tartrate 100 mg PO BID mv,Ca,min-folic acid-vit K1 400-20 mcg (One-A-Day Women's 50 Plus) 1 tab PO DAILY omeprazole 20 mg PO DAILY rosuvastatin 40 mg PO DAILY warfarin 5 mg See Protocol PO DIRECTED 14 days Nursing Note NO CP,SOB,DIET/MED CHANGES,FALLS OR SX OF BLEEDING. CONTINUE PRESENT DOSE AND FOLLOW-UP IN 4 WEEKS. GOOD UNDERSTANDING OF DOSING INSTR. Anti-Coag Initial Assessment Social Hx Patient Tobacco Use Status: Former Tobacco user alcohol intake: current Alcohol intake frequency: holidays/special occasions only Coding Level of Care Code Est Patient Level 1 Diagnoses Current use of anticoagulant therapy Z79.01 Assessment & Plan Assessment & Plan (1) Current use of anticoagulant therapy: Comment: On Coumadin for mechanical aortic valve. INR target is 2-3. Code(s): Z79.01 - retirement (current) use of anticoagulants Category: Medical
== END 2023-12-18 09:58 | disposition home or self-care (01) ==
LOC: HO.ACS 09:36
PROVIDERS: PCP Internal Medicine; Visit Provider Internal Medicine
DX: Z79.01 Long term (current) use of anticoagulants (principal)

== ENCOUNTER → 2023-12-18 09:36 | Outpatient (BNVA) | payer MEDICARE, SELFPAY | PROVIDERS: PCP Internal Medicine; Visit Provider Internal Medicine | DX: Z95.2 Presence of prosthetic heart valve (principal); Z79.01 Long term (current) use of anticoagulants; Z51.81 Encounter for therapeutic drug level monitoring | CPT/HCPCS: 85610; 99211 ==

== ENCOUNTER 2024-01-14 09:37 | Outpatient (AMB) | payer MEDICARE, SELFPAY ==
--- NOTE | 2024-01-14 09:45 | MHC.OFFVISCO ---
Intake Intake Visit Reasons: Anticoagulation Allergies No Known Allergies Allergy (Verified 01/14/24 09:41) Medication List - Last Reconciled 01/14/24 by Camilla Montes RN acetaminophen (Tylenol Extra Strength) 1,000 mg PO Q6H cetirizine (Zyrtec) 10 mg PO DAILY PRN clopidogrel 75 mg PO DAILY furosemide 20 mg PO QAM guaifenesin ER (Mucinex) 600 mg PO BID PRN metoprolol tartrate 100 mg PO BID mv,Ca,min-folic acid-vit K1 400-20 mcg (One-A-Day Women's 50 Plus) 1 tab PO DAILY omeprazole 20 mg PO DAILY rosuvastatin 40 mg PO DAILY warfarin 5 mg See Protocol PO DIRECTED 14 days Nursing Note INR: 2.4- in therapeutic range of 2-3 Medications and supplements reviewed No changes in health, diet, medications, or supplements, Denies any signs and symptoms of bleeding or bruising or clotting. Bleeding, bruising, clotting discussed Nutritional guidance given Dose: 5mg x 3, 7.5mg x 4 F/U INR: pt req 4 weeks Patient verbalizes understanding of instructions given [place]- [place] Anti-Coag Initial Assessment Social Hx Patient Tobacco Use Status: Former Tobacco user alcohol intake: current Alcohol intake frequency: holidays/special occasions only Coding Level of Care Code Est Patient Level 1 Diagnoses Current use of anticoagulant therapy Z79.01 Assessment & Plan Assessment & Plan (1) Current use of anticoagulant therapy: Comment: On Coumadin for mechanical aortic valve. INR target is 2-3. Code(s): Z79.01 - [facility] (current) use of anticoagulants Category: Medical
[2024-01-14 09:46] LABS: Prothrombin Time Whole Bld POC 28.5 sec (11.1-13.5); ~PT, ~INR - Anti Coag Clinic 2.4 (0.9-1.1)
== END 2024-01-14 09:50 | disposition home or self-care (01) ==
LOC: HO.ACS 09:37
PROVIDERS: PCP Internal Medicine; Visit Provider Internal Medicine
DX: Z79.01 Long term (current) use of anticoagulants (principal)

== ENCOUNTER → 2024-01-14 09:37 | Outpatient (BNVA) | payer MEDICARE, SELFPAY | PROVIDERS: PCP Internal Medicine; Visit Provider Internal Medicine | DX: Z95.2 Presence of prosthetic heart valve (principal); Z79.01 Long term (current) use of anticoagulants; Z51.81 Encounter for therapeutic drug level monitoring | CPT/HCPCS: 85610; 99211 ==

== ENCOUNTER 2024-02-12 09:48 | Outpatient (AMB) | payer MEDICARE, SELFPAY ==
[2024-02-12 09:55] LABS: Prothrombin Time Whole Bld POC 35.1 sec (11.1-13.5); ~PT, ~INR - Anti Coag Clinic 2.9 (0.9-1.1)
--- NOTE | 2024-02-12 10:03 | MHC.OFFVISCO ---
Intake Intake Visit Reasons: Anticoagulation Allergies No Known Allergies Allergy (Verified 02/12/24 09:50) Medication List - Last Reconciled 02/12/24 by Nancy Matthews RN acetaminophen (Tylenol Extra Strength) 1,000 mg PO Q6H cetirizine (Zyrtec) 10 mg PO DAILY PRN clopidogrel 75 mg PO DAILY furosemide 20 mg PO QAM guaifenesin ER (Mucinex) 600 mg PO BID PRN metoprolol tartrate 100 mg PO BID mv,Ca,min-folic acid-vit K1 400-20 mcg (One-A-Day Women's 50 Plus) 1 tab PO DAILY omeprazole 20 mg PO DAILY rosuvastatin 40 mg PO DAILY warfarin 5 mg See Protocol PO DIRECTED 14 days Nursing Note NO CP,SOB,DIET/MED CHANGES,FALLS OR SX OF BLEEDING. CONTINUE PRESENT DOSE AND FOLLOW-UP IN 4 WEEKS. GOOD UNDERSTANDING OF DOSING INSTR. Anti-Coag Initial Assessment Social Hx Patient Tobacco Use Status: Former Tobacco user alcohol intake: current Alcohol intake frequency: holidays/special occasions only Coding Level of Care Code Est Patient Level 1 Diagnoses Current use of anticoagulant therapy Z79.01 Assessment & Plan Assessment & Plan (1) Current use of anticoagulant therapy: Comment: On Coumadin for mechanical aortic valve. INR target is 2-3. Code(s): Z79.01 - custodial (current) use of anticoagulants Category: Medical
== END 2024-02-12 10:05 | disposition home or self-care (01) ==
LOC: HO.ACS 09:48
PROVIDERS: PCP Internal Medicine; Visit Provider Internal Medicine
DX: Z79.01 Long term (current) use of anticoagulants (principal)

== ENCOUNTER → 2024-02-12 09:48 | Outpatient (BNVA) | payer MEDICARE, SELFPAY | PROVIDERS: PCP Internal Medicine; Visit Provider Internal Medicine | DX: Z95.2 Presence of prosthetic heart valve (principal); Z79.01 Long term (current) use of anticoagulants; Z51.81 Encounter for therapeutic drug level monitoring | CPT/HCPCS: 85610; 99211 ==

== ENCOUNTER 2024-03-11 09:39 | Outpatient (AMB) | payer MEDICARE, SELFPAY ==
--- NOTE | 2024-03-11 09:45 | MHC.OFFVISCO ---
Intake Intake Visit Reasons: Anticoagulation Allergies No Known Allergies Allergy (Verified 03/11/24 09:42) Medication List - Last Reconciled 03/11/24 by Camilla Montes RN acetaminophen (Tylenol Extra Strength) 1,000 mg PO Q6H cetirizine (Zyrtec) 10 mg PO DAILY PRN clopidogrel 75 mg PO DAILY furosemide 20 mg PO QAM 90 days guaifenesin ER (Mucinex) 600 mg PO BID PRN metoprolol tartrate 100 mg PO BID mv,Ca,min-folic acid-vit K1 400-20 mcg (One-A-Day Women's 50 Plus) 1 tab PO DAILY omeprazole 20 mg PO DAILY rosuvastatin 40 mg PO DAILY warfarin 5 mg See Protocol PO DIRECTED 14 days Nursing Note INR 3.7-? out of therapeutic range of 2-3 Medications and supplements reviewed Patient status: no c.o, pt states etoh Medications or supplements: no changes Diet: same Denies any signs and symptoms of bleeding or clotting or unusual bruising Bleeding, bruising, clotting discussed Nutritional guidance given: eat greens to lower Dose: hold dose today, then cont 5mg x 3, 7.5mg x 4 F/U INR Date : 2 weeks Patient verbalizing understanding of instructions given. Anti-Coag Initial Assessment Social Hx Patient Tobacco Use Status: Former Tobacco user alcohol intake: current Alcohol intake frequency: holidays/special occasions only Coding Level of Care Code Est Patient Level 1 Diagnoses Current use of anticoagulant therapy Z79.01 Assessment & Plan Assessment & Plan (1) Current use of anticoagulant therapy: Comment: On Coumadin for mechanical aortic valve. INR target is 2-3. Code(s): Z79.01 - half-way (current) use of anticoagulants Category: Medical
[2024-03-11 09:48] LABS: Prothrombin Time Whole Bld POC 44.4 sec (11.1-13.5); ~PT, ~INR - Anti Coag Clinic 3.7 (0.9-1.1)
== END 2024-03-11 09:53 | disposition home or self-care (01) ==
LOC: HO.ACS 09:39
PROVIDERS: PCP Internal Medicine; Visit Provider Internal Medicine
DX: Z79.01 Long term (current) use of anticoagulants (principal)

== ENCOUNTER → 2024-03-11 09:39 | Outpatient (BNVA) | payer MEDICARE, SELFPAY | PROVIDERS: PCP Internal Medicine; Visit Provider Internal Medicine | DX: Z95.2 Presence of prosthetic heart valve (principal); Z79.01 Long term (current) use of anticoagulants; Z51.81 Encounter for therapeutic drug level monitoring | CPT/HCPCS: 85610; 99211 ==

== ENCOUNTER 2024-03-24 10:07 | Outpatient (AMB) | payer MEDICARE, SELFPAY ==
[2024-03-24 10:09] VITALS: BP 136/74; PULSE 80; O2SAT 98; BMI 42.9
--- NOTE | 2024-03-24 10:09 | A.OFFPC_ITS ---
Vital Signs 03/24/24 10:09 Height 5 ft 5 in Weight 258 lb BMI 42.9 BP 136/74 Blood Pressure Location Rt brachial Position Sitting Pulse 80 Pulse Source Pulse Oximeter Pulse Oximetry (%) 98 Oxygen Delivery Method Room Air Intake Visit Reasons: PE Intake Note: Pt is here today for PE. Allergies No Known Allergies Allergy (Verified 03/24/24 10:12) Medication List - Last Reconciled 03/24/24 by Lizzie Hummel MD acetaminophen (Tylenol Extra Strength) 1,000 mg PO Q6H cetirizine (Zyrtec) 10 mg PO DAILY PRN clopidogrel 75 mg PO DAILY furosemide 20 mg PO QAM 90 days guaifenesin ER (Mucinex) 600 mg PO BID PRN metoprolol tartrate 100 mg PO BID mv,Ca,min-folic acid-vit K1 400-20 mcg (One-A-Day Women's 50 Plus) 1 tab PO D AILY omeprazole 20 mg PO DAILY rosuvastatin 40 mg PO DAILY warfarin 5 mg See Protocol PO DIRECTED 14 days Tobacco use date assessed: 03/24/24 Fall risk assessment: No Falls in past year Last assessed Fall Risk: 03/24/24 Dental Screening Dental Screen Date: 03/24/24 Did you have a dental visit in the last 12 months?: Yes Did you have a dental problem in the last 6 months where you did not have access to dental care?: No Was dental information given to patient?: Patient has dentist HPI PE HPI Details Patient presents for a physical PFSH Medical History (Updated 03/24/24 @ 10:44 by Lizzie Hummel MD) Greater trochanteric pain syndrome Hyperglycemia Hyperparathyroidism Overweight Hyperlipidemia Annual physical exam Normal Pap smear Normal colonoscopy Mammogram normal Rodriguez esophagus FH: cholecystectomy Surgical History (Updated 03/24/24 @ 10:43 by Lizzie Hummel MD) S/P cardiac catheterization History of cardiac cath Hx of cholecystectomy S/P AVR (aortic valve replacement) H/O colonoscopy Family History Mother CAD (coronary artery disease) PVD (peripheral vascular disease) Father Bladder cancer Brother CAD (coronary artery disease) PVD (peripheral vascular disease) Social History Household Members Other:: , 3 children, walks daily, retired, moved from [facility] 06/2019 Housing: House Alcohol intake: current Alcohol intake frequency: holidays/special occasions only Patient Tobacco Use Status: Former Tobacco user Years Smoked: Non-heavy smoker less than 1 year. Exposed to 2nd handsmoke growing up. e-Cigarette/Vaping Use: Never Used service: No Current occupational status: retired Cognitive needs: No Hearing needs: No Vision needs: Yes Questionnaire PHQ-9 Over the last 2 weeks, how often have you been bothered by any of the following problems? 1. Little interest or pleasure in doing things: not at all 2. Feeling down, depressed, or hopeless: not at all 3. Trouble falling or staying asleep, or sleeping too much: not at all 4. Feeling tired or having little energy: not at all 5. Poor appetite or overeating: not at all 6. Feeling bad about yourself - or that you are a failure or have let yourself or your family down: not at all 7. Trouble concentrating on things, such as reading the newspaper or watching television: not at all 8. Moving or speaking so slowly that other people could have noticed. Or the opposite - being so fidgety or restless that you have been moving around a lot more than usual: not at all 9. Thoughts that you would be better off or of hurting yourself in some way: not at all Total score: 0 Depression Screening Interpretation: Negative Depression Screening Done: Yes 60487 - PHQ-9 Billing: Yes Source: Developed by Drs. Hemanth Montana, Evita Gongora, Waqar Farrell and colleagues, with an educational jabier from [employer]. Thrive Questionnaire Date Thrive assessed: 12/23/23 I am a: Patient What is your living situation today?: I have a steady place to live Within the past 12 months, did the food you bought not last and you didn't have the money to get more?: Never true Within the past 12 months, did you worry whether your food would run out before you got money to buy more?: Never true Do you have trouble paying for medicines?: No Do you have trouble getting transportation to medical appointments?: No Do you have trouble paying your heating and electricity bill?: No Do you have trouble taking care of your child, family member or friend?: No Do you have trouble with day-to-day activities such as bathing, preparing meals, shopping, managing finances, etc.?: No Are you currently unemployed and looking for a job?: No Are you interested in more education?: No Please select the resources that you would like help with: None Currently or been in a relationship where the following occur: No concerns reported THRIVE Score: 0 AUDIT C Alcohol Use Questionnaire (AUDIT-C) 1. How often do you have a drink containing alcohol?: Monthly or less 2. How many drinks containing alcohol do you have on a typical day when you are drinking?: 1 or 2 3. How often do you have six or more drinks on one occasion?: Never Total Score: 1 EDUARDA-7 AMB Questionnaire EDUARDA-7 Date EDUARDA - 7 assessed: 12/26/22 Source: Developed by Drs. Hemanth Montana, Evita Gongora, Waqar Farrell and colleagues, with an educational jabier from [employer]. Review of Systems Const All systems reviewed & are unremarkable except as noted in HPI and below Eyes Reports no additional complaints ENT Reports no additional complaints Card Reports no additional complaints Resp Reports no additional complaints GI Reports no additional complaints Reports no additional complaints Physical exam (Primary Care) Vital Signs: Last Vital Signs Pulse 80 03/24/24 10:09 BP 136/74 03/24/24 10:09 Pulse Ox 98 03/24/24 10:09 Oxygen Delivery Method Room Air 03/24/24 10:09 BMI result Body Mass Index 42.9 Tobacco/Smoking Status: Tobacco use Status Tobacco use date assessed 03/24/24 03/24/24 10:14 Patient Tobacco Use Status Former Tobacco user 03/24/24 10:14 e-Cigarette/Vaping Use Never Used 03/24/24 10:14 PHQ-9: PHQ-9 Score PHQ-9: Total score 0 03/24/24 10:14 Depression Screening Interpretation: Negative Thrive Assessment: Date of Thrive Assessment Date Thrive assessed 12/23/23 03/24/24 10:14 Currently or been in a relationship where the following occur: No concerns reported Const General: no acute distress HENMT Ears: hearing grossly normal bilaterally Throat: Yes posterior oropharynx normal Eyes General: appearance normal, both eyes and all related structures Neck Neck: Yes no lymphadenopathy and Yes supple Resp Effort & Inspection: normal respiratory effort Auscultation: clear to auscultation bilaterally Cardio Rhythm: regular rhythm Heart sounds: S1 normal heart sound present and S2 normal heart sound present GI Inspection: Yes normal to inspection Palpation (GI): Soft to palpation Percussion: Yes normal to percussion Auscultation: normal bowel sounds Coding Level of Care Code Est Pt Prev Care >65y(42071) Diagnoses Obese E66.9 CAD (coronary artery disease) I25.10 Hyperglycemia R73.9 Hyperlipidemia E78.5 Annual physical exam Z00.00 S/P AVR (aortic valve replacement) Z95.2 Assessment & Plan Assessment & Plan (1) Obese: Comment: BMI 42.9 Code(s): E66.9 - Obesity, unspecified Category: Medical Plan: Patient has been decreasing caloric intake increasing physical activity for over 6 months without significant weight loss. She is interested in trying GLP 1 agonist and Wegovy will be started at 0.25 mg weekly for the 1st month then increase to 0.5 mg as patient tolerates. She will follow-up in 2 months to mon itor her weight (2) CAD (coronary artery disease): Comment: s/p LAD GREGORY 05/30, f/u [facility] Cardiology Code(s): I25.10 - Atherosclerotic heart disease of [place] coronary artery without angina pectoris Category: Medical Plan: On metoprolol high dose statin clopidogrel, follow-up by [facility] (3) Hyperglycemia: Comment: A1C 6.0 10/01 Code(s): R73.9 - Hyperglycemia, unspecified Category: Medical Plan: ADA diet increase exercise weight loss discussed with the patient. Check A1c (4) Hyperlipidemia: Code(s): E78.5 - Hyperlipidemia, unspecified Category: Medical Plan: Continue statin (5) Annual physical exam: Code(s): Z00.00 - Encounter for general adult medical examination without abnormal findings Category: Medical Plan: Well-balanced diet regular physical activity discussed with the patient. Schedule mammogram patient is up-to-date with colonoscopy (6) S/P AVR (aortic valve replacement): Comment: [facility] mechanical on Coumadin, 07/2015 Code(s): Z95.2 - Presence of prosthetic heart valve Category: Surgical Plan: Continue Coumadin Orders: Orders MM screening mammo BI Today Z12.31 - Encounter for screening mammogram for malignant neoplasm of breast Medications: New semaglutide (weight loss) (Rabia) administer weeks 1 through 4 of therapy 0.25 mg (0.5 mL) subcut QWEEK 2 mL 0RF
== END 2024-03-24 10:34 | disposition home or self-care (01) ==
PROVIDERS: PCP Internal Medicine; Visit Provider Internal Medicine
DX: Z00.00 Encounter for general adult medical examination without abnormal findings (principal); Z68.41 Body mass index [BMI] 40.0-44.9, adult; E66.813 Obesity, class 3; I25.10 Atherosclerotic heart disease of native coronary artery without angina pectoris; R73.9 Hyperglycemia, unspecified; E78.5 Hyperlipidemia, unspecified; Z95.2 Presence of prosthetic heart valve

== ENCOUNTER → 2024-03-24 10:07 | Outpatient (BNVA) | payer MEDICARE, SELFPAY | PROVIDERS: PCP Internal Medicine; Visit Provider Internal Medicine | DX: Z00.01 Encounter for general adult medical examination with abnormal findings (principal); E66.9 Obesity, unspecified; Z68.41 Body mass index [BMI] 40.0-44.9, adult; I25.10 Atherosclerotic heart disease of native coronary artery without angina pectoris; R73.9 Hyperglycemia, unspecified; R78.5 Finding of other psychotropic drug in blood; Z95.2 Presence of prosthetic heart valve; Z79.899 Other long term (current) drug therapy; Z71.3 Dietary counseling and surveillance | CPT/HCPCS: 96127; 99397 ==

== ENCOUNTER 2024-03-24 10:35 | Outpatient (REF) | payer MEDICARE, SELFPAY ==
[2024-03-24 13:19] LABS: MANUAL DIFF FLAG NO
[2024-03-24 13:35] LABS: Basophils Percent Auto 0.5 % (0-2); Eosinophils Absolute Auto 0.1 X10*3/uL (0.0-0.4); Eosinophils Percent Auto 1.3 % (0-4); Hematocrit 40.9 % (37.0-47.0); Hemoglobin 13.2 g/dl (12.0-16.0); Imm Gran Abs Auto 0.03 X10*3/uL (0.00-0.03); Imm Gran Pct Auto 0.4 % (0.0-0.4); Lymphocytes Absolute Auto 1.9 X10*3/uL (1.2-4.9); Lymphocytes Percent Auto 22.8 % (20-40); Mean Corpuscular HGB Conc 32.3 g/dl (31.0-35.0); Mean Corpuscular Hemoglobin 27.1 pg (27.0-33.0); Mean Platelet Volume 9.9 fL (9.4-12.3); Monocytes Absolute Auto 0.6 X10*3/uL (0.1-1.2); Monocytes Percent Auto 6.8 % (2-11); Neutrophils Absolute Auto 5.8 x10*3/uL (2.0-8.3); Neutrophils Percent Auto 68.2 % (45-73); Platelet Count 328 X10*3/uL (160-400); Red Blood Count 4.87 X10*6/uL (4.20-5.50); Red Cell Distribution Width 14.2 % (11.0-16.0); White Blood Count 8.4 X10*3/uL (4.8-10.8)
[2024-03-24 14:02] LABS: Estimated Average Glucose 120 mg/dL; Hemoglobin A1C 132.4583 umol/L; Hemoglobin A1c % 5.8 % (<6.0); Total Hemoglobin (HGBA1C) 3302.6637 umol/L
[2024-03-24 14:05] LABS: Creatinine Urine 58.52 mg/dL; Microalbum/Creatinine Ratio Ur 22.2 ug/mg cr (<30)
[2024-03-24 14:12] LABS: Alanine Aminotransferase 22 U/L (0-31); Albumin Level 4.2 g/dL (3.5-5.0); Alkaline Phosphatase 106 U/L (39-117); Anion Gap 13 (12-20); Aspartate Amino Transferase 27 U/L (5-31); Bilirubin Total 0.5 mg/dL (0.0-1.0); Blood Urea Nitrogen 12 mg/dL (9-16); Calcium 9.7 mg/dL (8.4-10.2); Carbon Dioxide 28 mmol/L (22-29); Chloride 104 mmol/L (96-108); Cholesterol 186 mg/dL (<200); Estimated Glomerular Filt Rate > 60; Glucose Fasting 127 mg/dL (60-99); HDL Cholesterol 60 mg/dL (>40); LDL Cholesterol Calculated 87 mg/dL (<100); Sodium 141 mmol/L (135-145); Total Protein 7.9 g/dL (6.5-8.0); Triglycerides 198 mg/dL (<150)
== END 2024-03-24 10:36 | disposition home or self-care (01) ==
LOC: HO.HMGCLDS 10:35
PROVIDERS: PCP Internal Medicine; Visit Provider Internal Medicine
DX: R73.9 Hyperglycemia, unspecified (principal); E78.5 Hyperlipidemia, unspecified; E21.3 Hyperparathyroidism, unspecified
CPT/HCPCS: 36415; 80053; 80061; 82043; 82570; 83036; 85025

== ENCOUNTER 2024-03-25 10:14 | Outpatient (AMB) | payer MEDICARE, SELFPAY ==
[2024-03-25 10:18] LABS: Prothrombin Time Whole Bld POC 35.9 sec (11.1-13.5)
--- NOTE | 2024-03-25 10:38 | MHC.OFFVISCO ---
Intake Intake Visit Reasons: Anticoagulation Allergies No Known Allergies Allergy (Verified 03/25/24 10:14) Medication List - Last Reconciled 03/25/24 by Nancy Matthews RN acetaminophen (Tylenol Extra Strength) 1,000 mg PO Q6H cetirizine (Zyrtec) 10 mg PO DAILY PRN clopidogrel 75 mg PO DAILY furosemide 20 mg PO QAM 90 days guaifenesin ER (Mucinex) 600 mg PO BID PRN metoprolol tartrate 100 mg PO BID mv,Ca,min-folic acid-vit K1 400-20 mcg (One-A-Day Women's 50 Plus) 1 tab PO DAILY omeprazole 20 mg PO DAILY rosuvastatin 40 mg PO DAILY semaglutide (weight loss) (Wegovy) 0.25 mg (0.5 mL) subcut QWEEK warfarin 5 mg See Protocol PO DIRECTED 14 days Nursing Note NO CP,SOB,DIET/MED CHANGES,FALLS OR SX OF BLEEDING. CONTINUE PRESENT DOSE AND FOLLOW-UP IN 4 WEEKS. GOOD UNDERSTANDING OF DOSING INSTR. Anti-Coag Initial Assessment Social Hx Patient Tobacco Use Status: Former Tobacco user alcohol intake: current Alcohol intake frequency: holidays/special occasions only Coding Level of Care Code Est Patient Level 1 Diagnoses Current use of anticoagulant therapy Z79.01 Assessment & Plan Assessment & Plan (1) Current use of anticoagulant therapy: Comment: On Coumadin for mechanical aortic valve. INR target is 2-3. Code(s): Z79.01 - half-way (current) use of anticoagulants Category: Medical
== END 2024-03-25 10:39 | disposition home or self-care (01) ==
LOC: HO.ACS 10:14
PROVIDERS: PCP Internal Medicine; Visit Provider Internal Medicine
DX: Z79.01 Long term (current) use of anticoagulants (principal)

== ENCOUNTER → 2024-03-25 10:14 | Outpatient (BNVA) | payer MEDICARE, SELFPAY | PROVIDERS: PCP Internal Medicine; Visit Provider Internal Medicine | DX: Z95.2 Presence of prosthetic heart valve (principal); Z79.01 Long term (current) use of anticoagulants; Z51.81 Encounter for therapeutic drug level monitoring | CPT/HCPCS: 85610; 99211 ==

== ENCOUNTER 2024-04-10 08:22 | Outpatient (REF) | payer MEDICARE, SELFPAY ==
--- NOTE | ~2024-04-10 | MM_ITS ---
EXAMINATION: MM SCREENING DIGITAL BREAST TOMOSYNTHESIS, BILATERAL CLINICAL INFORMATION: Screening. Asymptomatic. COMPARISON: Mammography: Comparison is made with available priors TECHNIQUE: Digital breast mammography with tomosynthesis is performed in both the craniocaudal and mediolateral oblique views along with computer-aided detection (CAD). FINDINGS: There are scattered areas of fibroglandular density (ACR BI-RADS breast composition Category b). Right marker clip. There are no significant masses, abnormal calcifications, or other abnormalities. MM/MM tomosynthesis screening BI IMPRESSION: No mammographic evidence of malignancy. ASSESSMENT: BI-RADS BI-RADS 2 - Benign Findings RECOMMENDATION: Routine annual mammography screening. 1 year F/U This examination should not preclude the clinical evaluation of a suspicious palpable abnormality. This patient's information was entered into a reminder system with a target due date for their next mammogram. Electronically signed by: Princess Tomas DO 04/24/2024 01:01 PM MA[facility]
== END 2024-04-10 08:23 | disposition home or self-care (01) ==
LOC: HO.MAMMO 08:22
PROVIDERS: PCP Internal Medicine; Visit Provider Internal Medicine
DX: Z12.31 Encounter for screening mammogram for malignant neoplasm of breast (principal)
CPT/HCPCS: 77063; 77067

== ENCOUNTER → 2024-04-10 08:30 | Outpatient (BNV) | payer MEDICARE, SELFPAY | PROVIDERS: PCP Internal Medicine; Visit Provider Internal Medicine | DX: Z12.31 Encounter for screening mammogram for malignant neoplasm of breast (principal) | CPT/HCPCS: 77063; 77067 ==

== ENCOUNTER 2024-04-22 10:13 | Outpatient (AMB) | payer MEDICARE, SELFPAY ==
[2024-04-22 10:32] LABS: Prothrombin Time Whole Bld POC 28.7 sec (11.1-13.5); ~PT, ~INR - Anti Coag Clinic 2.4 (0.9-1.1)
--- NOTE | 2024-04-22 10:37 | MHC.OFFVISCO ---
Intake Intake Visit Reasons: Anticoagulation Allergies No Known Allergies Allergy (Verified 04/22/24 10:20) Medication List - Last Reconciled 04/22/24 by Camilla Montes RN acetaminophen (Tylenol Extra Strength) 1,000 mg PO Q6H cetirizine (Zyrtec) 10 mg PO DAILY PRN clopidogrel 75 mg PO DAILY furosemide 20 mg PO QAM 90 days guaifenesin ER (Mucinex) 600 mg PO BID PRN metoprolol tartrate 100 mg PO BID mv,Ca,min-folic acid-vit K1 400-20 mcg (One-A-Day Women's 50 Plus) 1 tab PO DAILY omeprazole 20 mg PO DAILY rosuvastatin 40 mg PO DAILY semaglutide (weight loss) (Wegovy) 0.25 mg (0.5 mL) subcut QWEEK warfarin 5 mg See Protocol PO DIRECTED 14 days Nursing Note INR: 2.4- in therapeutic range of 2-3 Medications and supplements reviewed- pt now on wegovy weekly, started today- may affect inr per micromedex No changes in health, diet, medications, or supplements, Denies any signs and symptoms of bleeding or bruising or clotting. Bleeding, bruising, clotting discussed Nutritional guidance given Dose: cont reg dosing- 5mg x 3, 7.5mg x 4] F/U INR: 2 weeks Patient verbalizes understanding of instructions given Anti-Coag Initial Assessment Social Hx Patient Tobacco Use Status: Former Tobacco user alcohol intake: current Alcohol intake frequency: holidays/special occasions only Coding Level of Care Code Est Patient Level 1 Diagnoses Current use of anticoagulant therapy Z79.01 Assessment & Plan Assessment & Plan (1) Current use of anticoagulant therapy: Comment: On Coumadin for mechanical aortic valve. INR target is 2-3. 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
== END 2024-04-22 10:39 | disposition home or self-care (01) ==
LOC: HO.ACS 10:13
PROVIDERS: PCP Internal Medicine; Visit Provider Internal Medicine
DX: Z79.01 Long term (current) use of anticoagulants (principal)

== ENCOUNTER → 2024-04-22 10:13 | Outpatient (BNVA) | payer MEDICARE, SELFPAY | PROVIDERS: PCP Internal Medicine; Visit Provider Internal Medicine | DX: Z95.2 Presence of prosthetic heart valve (principal); Z79.01 Long term (current) use of anticoagulants; Z51.81 Encounter for therapeutic drug level monitoring | CPT/HCPCS: 85610; 99211 ==

== ENCOUNTER 2024-04-27 11:11 | Outpatient (AMB) | payer MEDICARE, SELFPAY ==
[2024-04-27 11:25] VITALS: BP 132/64; PULSE 70; BMI 43.4
--- NOTE | 2024-04-27 11:25 | A.OFFVIS_ITS ---
Vital Signs 04/27/24 11:25 Height 5 ft 5 in Weight 260 lb 9.382 oz BMI 43.4 BP 132/64 Blood Pressure Location Lt brachial Position Sitting Pulse 70 Pulse Source Pulse Oximeter Intake Visit Reasons: 6m follow up Intake Note: 6 mth f/up Head Of Cytogenetics Required: No Accompanied by: Self / Same As Patient Allergies No Known Allergies Allergy (Verified 04/22/24 10:20) Medication List - Last Reconciled 04/27/24 by You Prnice MD acetaminophen (Tylenol Extra Strength) 1,000 mg PO Q6H cetirizine (Zyrtec) 10 mg PO DAILY PRN clopidogrel 75 mg PO DAILY furosemide 20 mg PO QAM 90 days guaifenesin ER (Mucinex) 600 mg PO BID PRN metoprolol tartrate 100 mg PO BID mv,Ca,min-folic acid-vit K1 400-20 mcg (One-A-Day Women's 50 Plus) 1 tab PO DAILY omeprazole 20 mg PO DAILY rosuvastatin 40 mg PO DAILY semaglutide (weight loss) (Wegovy) 0.25 mg (0.5 mL) subcut QWEEK warfarin 5 mg See Protocol PO DIRECTED 14 days HPI Comments Details: 68-year-old female with background history of coronary artery disease with single-vessel PCI as well as severe aortic stenosis for which she underwent mechanical aortic valve replacement 2015 at [facility] in [facility]. She said she was following with her marketing professional near [place] regularly and was doing well. Recently she moved to this area to live close to family. Old records reviewed. In August 2013 she had 2 episodes of left arm and chest pain. She had moderate aortic stenosis at that time. She underwent stress testing which showed transient ischemic dilatation. Subsequent to that she underwent cardiac catheterization which confirmed moderate aortic stenosis on showed ostial right coronary artery stenosis which was treated with bare metal stent. She also in a mid LAD lesion which was thought to be intermediate but no FFR was performed. In July 2015 she had echocardiography which showed severe aortic stenosis and she underwent aortic valve replacement with 19 mm [facility] medical mechanical aortic valve. 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 On last visit she was complaining of shortness of breath. After discussion she was sent for echocardiography. Initially we decided to a stress test but because she has dyspnea on exertion with her coronary disease in the past we decided to a cardiac catheterization. Cardiac catheterization showed mid LAD 90% stenosis which was treated with drug-eluting stent. A 3 x 18 tabby resolute drug-eluting stent was placed. Echo showed normal LV systolic function with moderate left ventricular hypertrophy. Filling pressures were indeterminate. Aortic valve had high velocities of 3.49 m/sec with aortic valve area 1.29 cm2. Findings were consistent with her known diagnosis of patient prosthesis mismatch. After cardiac catheterization her symptoms have improved completely. She is here for follow-up today and has been walking and is back to her baseline. No bleeding issues. Continues to be stable on follow-up without any significant issues. No bleeding concerns. 12/17/22: She returns for follow-up. She has been taking medication regularly. Her blood pressure control is good. She is complaining of some dyspnea specially when she is going up stairs. She has knee arthritis and feels limited by pain. No orthopnea or PND. She has mild peripheral edema and is currently using 10 mg of Lasix daily. She is on Coumadin for mechanical aortic valve in the past. 04/22/2023: She returns for follow-up. She has been doing well and has been physically active. No chest discomfort shortness of breath. As mentioned above dyspnea is her anginal equivalent. No bleeding concerns. She is taking Plavix and Coumadin. She has a mechanical aortic valve. 10/23/23: She returns for follow-up. She has been doing well. She is returned from [place] after 2 week vacation. She walked a lot and had no symptoms. In particular no chest pain or shortness of breath. Blood pressure is well controlled. She is taking Coumadin and Plavix and has no bleeding concerns. 04/27/2024: She is here for follow-up. She has been doing well. She is planning to go for vacation to [facility]. Clinically she has no symptoms. No bleeding concerns. [facility] Medical History (Updated 03/24/24 @ 10:44 by Lizzie Hummel MD) Greater trochanteric pain syndrome Hyperglycemia Hyperparathyroidism Overweight Hyperlipidemia Annual physical exam Normal Pap smear Normal colonoscopy Mammogram normal Rodriguez esophagus FH: cholecystectomy Surgical History S/P cardiac catheterization History of cardiac cath Hx of cholecystectomy S/P AVR (aortic valve replacement) H/O colonoscopy Family History Mother CAD (coronary artery disease) PVD (peripheral vascular disease) Father Bladder cancer Brother CAD (coronary artery disease) PVD (peripheral vascular disease) Social History Household Members Other:: , 3 children, walks daily, retired, moved from [facility] 06/2019 Housing: House Alcohol intake: current Alcohol intake frequency: holidays/special occasions only Patient Tobacco Use Status: Former Tobacco user Years Smoked: Non-heavy smoker less than 1 year. Exposed to 2nd handsmoke growing up. e-Cigarette/Vaping Use: Never Used service: No Current occupational status: retired Cognitive needs: No Hearing needs: No Vision needs: Yes Review of Systems Const Denies chills, Denies fatigue, Denies fever(s), Denies frequent falls, Denies weakness, Denies weight gain and Denies weight loss ENT Denies dizziness Card Denies chest pain, Denies leg edema, Denies lightheadedness, Denies palpitations, Denies dyspnea and Denies dyspnea on exertion Resp Denies cough, Denies dyspnea and Denies dyspnea on exertion GI Denies hematochezia Musc Denies abnormal gait, Denies muscle weakness, Denies numbness, Denies radiating pain into limb and Denies tingling Neuro Denies abnormal gait, Denies dizziness, Denies frequent falls, Denies numbness, Denies tingling and Denies weakness Endo Denies fatigue and Denies palpitations Physical Exam Vital Signs: Last Vital Signs Pulse 70 04/27/24 11:25 BP 132/64 04/27/24 11:25 BMI result Body Mass Index 43.4 GENERAL APPEARANCE: in no acute distress. NECK/THYROID: no carotid bruit, no jugular venous distention. SKIN: no suspicious lesions, warm and dry. HEART: systolic murmur in aortic area, mechanical 2nd heart sound. LUNGS: clear to auscultation bilaterally. ABDOMEN: normal, bowel sounds present, soft, nontender, nondistended. EXTREMITIES: Trace edema. PERIPHERAL PULSES: equal. NEUROLOGIC: nonfocal, alert and oriented. PSYCH: mood/affect full range. Assessment & Plan Assessment & Plan (1) S/P AVR (aortic valve replacement): Comment: [facility] mechanical on Coumadin, 07/2015 Code(s): Z95.2 - Presence of prosthetic heart valve Category: Surgical (2) CAD (coronary artery disease): Comment: s/p LAD GREGORY 05/30, f/u [facility] Code(s): I25.10 - Atherosclerotic heart disease of [place] coronary artery without angina pectoris Category: Medical Plan [age] year female who is here for follow-up. She has known history of mechanical aortic valve replacement in the past and coronary artery disease. She has stable angina. Clinically not in heart failure. Blood pressure is well controlled. She is on Coumadin Plavix currently. She has patient prosthesis mismatch and high gradient across the aortic valve. Clinically she has been stable. We will continue to monitor this with yearly echocardiography. Follow-up in 6 months. Thank you for allowing me to participate in the care of your patient. Please feel free to contact me if you have any questions. Coding Level of Care Code Est Pt Level 4 (85505) Diagnoses S/P AVR (aortic valve replacement) Z95.2 CAD (coronary artery disease) I25.10
== END 2024-04-27 12:34 | disposition home or self-care (01) ==
PROVIDERS: PCP Internal Medicine; Visit Provider Internal Medicine Cardiovascular Disease
DX: Z95.2 Presence of prosthetic heart valve (principal); I25.10 Atherosclerotic heart disease of native coronary artery without angina pectoris
CPT/HCPCS: 99214

== ENCOUNTER → 2024-04-27 11:11 | Outpatient (BNVA) | payer MEDICARE, SELFPAY | PROVIDERS: PCP Internal Medicine; Visit Provider Internal Medicine Cardiovascular Disease | DX: I25.10 Atherosclerotic heart disease of native coronary artery without angina pectoris (principal); Z95.2 Presence of prosthetic heart valve; Z79.01 Long term (current) use of anticoagulants | CPT/HCPCS: 99212 ==

== ENCOUNTER 2024-05-06 13:40 | Outpatient (AMB) | payer MEDICARE, SELFPAY ==
--- NOTE | 2024-05-06 13:50 | MHC.OFFVISCO ---
Intake Intake Visit Reasons: Anticoagulation Allergies No Known Allergies Allergy (Verified 05/06/24 13:45) Medication List - Last Reconciled 05/06/24 by Camilla Montes RN acetaminophen (Tylenol Extra Strength) 1,000 mg PO Q6H cetirizine (Zyrtec) 10 mg PO DAILY PRN clopidogrel 75 mg PO DAILY furosemide 20 mg PO QAM 90 days guaifenesin ER (Mucinex) 600 mg PO BID PRN metoprolol tartrate 100 mg PO BID mv,Ca,min-folic acid-vit K1 400-20 mcg (One-A-Day Women's 50 Plus) 1 tab PO DAILY omeprazole 20 mg PO DAILY rosuvastatin 40 mg PO DAILY semaglutide (weight loss) (Wegovy) 0.5 mg (0.5 mL) subcut QWEEK warfarin 5 mg See Protocol PO DIRECTED 14 days Nursing Note INR: 2.2- in therapeutic range of 2-3 Medications and supplements reviewed- wegovy is 0.5mg weekly No changes in health, diet, medications, or supplements, Denies any signs and symptoms of bleeding or bruising or clotting. Bleeding, bruising, clotting discussed Nutritional guidance given Dose: 5mg x 3, 7.5mg x 4 F/U INR: 2 weeks Patient verbalizes understanding of instructions given pt with upcoming vacation for 6 days Anti-Coag Initial Assessment Social Hx Patient Tobacco Use Status: Former Tobacco user alcohol intake: current Alcohol intake frequency: holidays/special occasions only Coding Level of Care Code Est Patient Level 1 Diagnoses Current use of anticoagulant therapy Z79.01 Results AMB INR Fingerstick AMB INR Fingerstick 2.2 Last Edit by Camilla Montes RN on 05/06/24 13:52 interface delay Assessment & Plan Assessment & Plan (1) Current use of anticoagulant therapy: Comment: On Coumadin for mechanical aortic valve. INR target is 2-3. 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
[2024-05-06 13:52] LABS: Prothrombin Time Whole Bld POC 26.5 sec (11.1-13.5); ~PT, ~INR - Anti Coag Clinic 2.2 (0.9-1.1)
== END 2024-05-06 14:00 | disposition home or self-care (01) ==
LOC: HO.ACS 13:40
PROVIDERS: PCP Internal Medicine; Visit Provider Internal Medicine
DX: Z79.01 Long term (current) use of anticoagulants (principal)

== ENCOUNTER → 2024-05-06 13:40 | Outpatient (BNVA) | payer MEDICARE, SELFPAY | PROVIDERS: PCP Internal Medicine; Visit Provider Internal Medicine | DX: Z95.2 Presence of prosthetic heart valve (principal); Z79.01 Long term (current) use of anticoagulants; Z51.81 Encounter for therapeutic drug level monitoring | CPT/HCPCS: 85610; 99211 ==

== ENCOUNTER 2024-05-20 10:16 | Outpatient (AMB) | payer MEDICARE, SELFPAY ==
[2024-05-20 10:24] LABS: ~PT, ~INR - Anti Coag Clinic 2.3 (0.9-1.1)
--- NOTE | 2024-05-20 10:34 | MHC.OFFVISCO ---
Intake Intake Visit Reasons: Anticoagulation Allergies No Known Allergies Allergy (Verified 05/20/24 10:19) Medication List - Last Reconciled 05/20/24 by Nancy Matthews RN acetaminophen (Tylenol Extra Strength) 1,000 mg PO Q6H cetirizine (Zyrtec) 10 mg PO DAILY PRN clopidogrel 75 mg PO DAILY furosemide 20 mg PO QAM 90 days guaifenesin ER (Mucinex) 600 mg PO BID PRN metoprolol tartrate 100 mg PO BID mv,Ca,min-folic acid-vit K1 400-20 mcg (One-A-Day Women's 50 Plus) 1 tab PO DAILY omeprazole 20 mg PO DAILY rosuvastatin 40 mg PO DAILY semaglutide (weight loss) ([place]ennievy) 0.5 mg (0.5 mL) subcut QWEEK warfarin 5 mg See Protocol PO DIRECTED 14 days Nursing Note NO CP,SOB,DIET/MED CHANGES,FALLS OR SX OF BLEEDING.. CONTINUE PRESENT DOSE AND FOLLOW-UP IN 2 WEEKS GOOD UNDERSTANDING OF DOASING INSTR. Anti-Coag Initial Assessment Social Hx Patient Tobacco Use Status: Former Tobacco user alcohol intake: current Alcohol intake frequency: holidays/special occasions only Coding Level of Care Code Est Patient Level 1 Diagnoses Current use of anticoagulant therapy Z79.01 Assessment & Plan Assessment & Plan (1) Current use of anticoagulant therapy: Comment: On Coumadin for mechanical aortic valve. INR target is 2-3. Code(s): Z79.01 - detention (current) use of anticoagulants Category: Medical
== END 2024-05-20 10:37 | disposition home or self-care (01) ==
LOC: HO.ACS 10:16
PROVIDERS: PCP Internal Medicine; Visit Provider Internal Medicine
DX: Z79.01 Long term (current) use of anticoagulants (principal)

== ENCOUNTER → 2024-05-20 10:16 | Outpatient (BNVA) | payer MEDICARE, SELFPAY | PROVIDERS: PCP Internal Medicine; Visit Provider Internal Medicine | DX: Z95.2 Presence of prosthetic heart valve (principal); Z79.01 Long term (current) use of anticoagulants; Z51.81 Encounter for therapeutic drug level monitoring | CPT/HCPCS: 85610; 99211 ==

== ENCOUNTER 2024-05-29 10:28 | Outpatient (AMB) | payer MEDICARE, SELFPAY ==
[2024-05-29 10:46] VITALS: BP 134/76; PULSE 81; O2SAT 96; BMI 42.8
--- NOTE | 2024-05-29 10:46 | A.OFFPC_ITS ---
Vital Signs 05/29/24 10:46 Height 5 ft 5 in Weight 257 lb BMI 42.8 BP 134/76 Blood Pressure Location Lt brachial Position Sitting Pulse 81 Pulse Source Pulse Oximeter Pulse Oximetry (%) 96 Oxygen Delivery Method Room Air Intake Visit Reasons: 2 month follow up Intake Note: Pt is here today for 2 months follow up visit. Allergies No Known Allergies Allergy (Verified 05/29/24 10:50) Medication List - Last Reconciled 05/29/24 by Lizzie Hummel MD acetaminophen (Tylenol Extra Strength) 1,000 mg PO Q6H cetirizine (Zyrtec) 10 mg PO DAILY PRN clopidogrel 75 mg PO DAILY furosemide 20 mg PO QAM 90 days guaifenesin ER (Mucinex) 600 mg PO BID PRN metoprolol tartrate 100 mg PO BID mv,Ca,min-folic acid-vit K1 400-20 mcg (One-A-Day Women's 50 Plus) 1 tab PO DAILY omeprazole 20 mg PO DAILY rosuvastatin 40 mg PO DAILY semaglutide (weight loss) (Wegovy) 0.5 mg (0.5 mL) subcut QWEEK semaglutide (weight loss) (Wegovy) 1 mg (0.5 mL) subcut QWEEK warfarin 5 mg See Protocol PO DIRECTED 14 days Tobacco use date assessed: 05/29/24 Dental Screening Dental Screen Date: 03/24/24 HPI 2 month follow up HPI Details Patient presents for the follow-up of hypertension hyperlipidemia. She has been taking Wegovy for 6 weeks and lost 7 lb. Patient denies side effects and would like to continue to increase the dose monthly. She has been decreasing caloric intake and walking daily for at least 30 minutes [facility] Medical History Greater trochanteric pain syndrome Hyperglycemia Hyperparathyroidism Overweight Hyperlipidemia Annual physical exam Normal Pap smear Normal colonoscopy Mammogram normal Rodriguez esophagus FH: cholecystectomy Surgical History S/P cardiac catheterization History of cardiac cath Hx of cholecystectomy S/P AVR (aortic valve replacement) H/O colonoscopy Family History Mother CAD (coronary artery disease) PVD (peripheral vascular disease) Father Bladder cancer Brother CAD (coronary artery disease) PVD (peripheral vascular disease) Social History Household Members Other:: , 3 children, walks daily, retired, moved from [facility] 06/2019 Housing: House Alcohol intake: current Alcohol intake frequency: holidays/special occasions only Patient Tobacco Use Status: Former Tobacco user Years Smoked: Non-heavy smoker less than 1 year. Exposed to 2nd handsmoke growing up. e-Cigarette/Vaping Use: Never Used service: No Current occupational status: retired Cognitive needs: No Hearing needs: No Vision needs: Yes Questionnaire Thrive Questionnaire Date Thrive assessed: 12/23/23 I am a: Patient What is your living situation today?: I have a steady place to live Within the past 12 months, did the food you bought not last and you didn't have the money to get more?: Never true Within the past 12 months, did you worry whether your food would run out before you got money to buy more?: Never true Do you have trouble paying for medicines?: No Do you have trouble getting transportation to medical appointments?: No Do you have trouble paying your heating and electricity bill?: No Do you have trouble taking care of your child, family member or friend?: No Do you have trouble with day-to-day activities such as bathing, preparing meals, shopping, managing finances, etc.?: No Are you currently unemployed and looking for a job?: No Are you interested in more education?: No Please select the resources that you would like help with: None Currently or been in a relationship where the following occur: No concerns reported THRIVE Score: 0 EDUARDA-7 AMB Questionnaire EDUARDA-7 Date EDUARDA - 7 assessed: 12/26/22 Source: Developed by Drs. Hemanth Montana, Evita Gongora, Waqar Farrell and colleagues, with an educational jabier from [employer]. Review of Systems Const All systems reviewed & are unremarkable except as noted in HPI and below ENT Reports no additional complaints Card Reports no additional complaints Resp Reports no additional complaints GI Reports no additional complaints Reports no additional complaints Physical exam (Primary Care) Vital Signs: Last Vital Signs Pulse 81 05/29/24 10:46 BP 134/76 05/29/24 10:46 Pulse Ox 96 05/29/24 10:46 Oxygen Delivery Method Room Air 05/29/24 10:46 BMI result Body Mass Index 42.8 Tobacco/Smoking Status: Tobacco use Status Tobacco use date assessed 05/29/24 05/29/24 10:52 Patient Tobacco Use Status Former Tobacco user 05/29/24 10:46 e-Cigarette/Vaping Use Never Used 05/29/24 10:46 Thrive Assessment: Date of Thrive Assessment Date Thrive assessed 12/23/23 05/29/24 10:46 Currently or been in a relationship where the following occur: No concerns reported Const General: no acute distress HENMT Head: Yes normal to inspection Mouth: Normal oral and palatal mucosa present Neck Neck: Yes supple Resp Effort & Inspection: normal respiratory effort Auscultation: clear to auscultation bilaterally Cardio Rhythm: regular rhythm Heart sounds: S1 normal heart sound present and S2 normal heart sound present GI Inspection: Yes normal to inspection Palpation (GI): Soft to palpation Percussion: Yes normal to percussion Auscultation: normal bowel sounds Coding Level of Care Code Est Pt Level 4 (93742) Diagnoses Hyperglycemia R73.9 Hyperlipidemia E78.5 S/P AVR (aortic valve replacement) Z95.2 Obese E66.9 Assessment & Plan Assessment & Plan (1) Hyperglycemia: Comment: A1C 6.0 10/01 Code(s): R73.9 - Hyperglycemia, unspecified Category: Medical Plan: Continue ADA diet decreased caloric intake and continue regular physical activity, follow-up in 3 months with a fasting labs including A1c (2) Hyperlipidemia: Code(s): E78.5 - Hyperlipidemia, unspecified Category: Medical Plan: Continue statin (3) S/P AVR (aortic valve replacement): Comment: [facility] mechanical on Coumadin, 07/2015 Code(s): Z95.2 - Presence of prosthetic heart valve Category: Surgical Plan: Continue Coumadin (4) Obese: Comment: BMI 42.9 Code(s): E66.9 - Obesity, unspecified Category: Medical Plan: Increase Wegovy to 1 mg weekly next month and if patient tolerates medication well she will try the next higher dose. Follow-up in 3 months with a fasting labs Orders: Orders Comprehensive [place]. Panel Fast 3 Months E78.5 - Hyperlipidemia, unspecified, R73.9 - Hyperglycemia, unspecified Complete Blood Count Auto Diff 3 Months E78.5 - Hyperlipidemia, unspecified, R73.9 - Hyperglycemia, unspecified Lipid Panel 3 Months E78.5 - Hyperlipidemia, unspecified, R73.9 - Hyperglycemia, unspecified Hemoglobin A1c 3 Months E78.5 - Hyperlipidemia, unspecified, R73.9 - Hyperglycemia, unspecified Medications: New semaglutide (weight loss) (Rabia) 1 mg (0.5 mL) subcut QWEEK 2 mL 1RF
== END 2024-05-29 11:24 | disposition home or self-care (01) ==
PROVIDERS: PCP Internal Medicine; Visit Provider Internal Medicine
DX: R73.9 Hyperglycemia, unspecified (principal); Z68.41 Body mass index [BMI] 40.0-44.9, adult; E66.9 Obesity, unspecified; E78.5 Hyperlipidemia, unspecified; Z95.2 Presence of prosthetic heart valve

== ENCOUNTER → 2024-05-29 10:28 | Outpatient (BNVA) | payer MEDICARE, SELFPAY | PROVIDERS: PCP Internal Medicine; Visit Provider Internal Medicine | DX: R73.9 Hyperglycemia, unspecified (principal); E78.5 Hyperlipidemia, unspecified; E66.9 Obesity, unspecified; Z95.2 Presence of prosthetic heart valve | CPT/HCPCS: 99212 ==

== ENCOUNTER 2024-06-02 09:45 | Outpatient (AMB) | payer MEDICARE, SELFPAY ==
[2024-06-02 09:58] LABS: Prothrombin Time Whole Bld POC 28.6 sec (11.1-13.5); ~PT, ~INR - Anti Coag Clinic 2.4 (0.9-1.1)
--- NOTE | 2024-06-02 10:01 | MHC.OFFVISCO ---
Intake Intake Visit Reasons: Anticoagulation Allergies No Known Allergies Allergy (Verified 06/02/24 09:51) Medication List - Last Reconciled 06/02/24 by Anabella Roass RN acetaminophen (Tylenol Extra Strength) 1,000 mg PO Q6H cetirizine (Zyrtec) 10 mg PO DAILY PRN clopidogrel 75 mg PO DAILY furosemide 20 mg PO QAM 90 days guaifenesin ER (Mucinex) 600 mg PO BID PRN metoprolol tartrate 100 mg PO BID mv,Ca,min-folic acid-vit K1 400-20 mcg (One-A-Day Women's 50 Plus) 1 tab PO DAILY omeprazole 20 mg PO DAILY rosuvastatin 40 mg PO DAILY semaglutide (weight loss) (Wegovy) 0.5 mg (0.5 mL) subcut QWEEK semaglutide (weight loss) (Wegovy) 1 mg (0.5 mL) subcut QWEEK warfarin 5 mg See Protocol PO DIRECTED 14 days Nursing Note INR: 2.4 in therapeutic range of 2-3 Medications and supplements reviewed No changes in health, diet, medications, or supplements, Denies any signs and symptoms of bleeding or bruising or clotting. Bleeding, bruising, clotting discussed Nutritional guidance given Dose: 7.5mg X 4 days and 5mg X 3 days (Mon, Wed & Fri) F/U INR: 2 weeks Patient verbalizes understanding of instructions given Anti-Coag Initial Assessment Social Hx Patient Tobacco Use Status: Former Tobacco user alcohol intake: current Alcohol intake frequency: holidays/special occasions only Coding Level of Care Code Est Patient Level 1 Diagnoses Current use of anticoagulant therapy Z79.01 Results AMB INR Fingerstick AMB INR Fingerstick 2.4 Last Edit by Anabella Rosas RN on 06/02/24 09:59 interface delay Assessment & Plan Assessment & Plan (1) Current use of anticoagulant therapy: Comment: On Coumadin for mechanical aortic valve. INR target is 2-3. Code(s): Z79.01 - meterman (current) use of anticoagulants Category: Medical
== END 2024-06-02 10:03 | disposition home or self-care (01) ==
LOC: HO.ACS 09:45
PROVIDERS: PCP Internal Medicine; Visit Provider Internal Medicine
DX: Z79.01 Long term (current) use of anticoagulants (principal)

== ENCOUNTER → 2024-06-02 09:45 | Outpatient (BNVA) | payer MEDICARE, SELFPAY | PROVIDERS: PCP Internal Medicine; Visit Provider Internal Medicine | DX: Z95.2 Presence of prosthetic heart valve (principal); Z79.01 Long term (current) use of anticoagulants; Z51.81 Encounter for therapeutic drug level monitoring | CPT/HCPCS: 85610; 99211 ==

== ENCOUNTER 2024-06-17 09:51 | Outpatient (AMB) | payer MEDICARE, SELFPAY ==
--- NOTE | 2024-06-17 10:23 | MHC.OFFVISCO ---
Intake Intake Visit Reasons: Anticoagulation Allergies No Known Allergies Allergy (Verified 06/17/24 10:08) Medication List - Last Reconciled 06/17/24 by Camilla Montes RN acetaminophen (Tylenol Extra Strength) 1,000 mg PO Q6H cetirizine (Zyrtec) 10 mg PO DAILY PRN clopidogrel 75 mg PO DAILY furosemide 20 mg PO QAM 90 days guaifenesin ER (Mucinex) 600 mg PO BID PRN metoprolol tartrate 100 mg PO BID mv,Ca,min-folic acid-vit K1 400-20 mcg (One-A-Day Women's 50 Plus) 1 tab PO DAILY omeprazole 20 mg PO DAILY rosuvastatin 40 mg PO DAILY semaglutide (weight loss) (Wegovy) 0.5 mg (0.5 mL) subcut QWEEK semaglutide (weight loss) (Wegovy) 1 mg (0.5 mL) subcut QWEEK warfarin 5 mg See Protocol PO DIRECTED 14 days Nursing Note INR: 2.2 in therapeutic range of 2-3 Medications and supplements reviewed No changes in health, diet, medications, or supplements, Denies any signs and symptoms of bleeding or bruising or clotting. Bleeding, bruising, clotting discussed Nutritional guidance given Dose: 5mg x 3, 7.5mg x 4 F/U INR: 2 weeks Patient verbalizes understanding of instructions given Anti-Coag Initial Assessment Social Hx Patient Tobacco Use Status: Former Tobacco user alcohol intake: current Alcohol intake frequency: holidays/special occasions only Coding Level of Care Code Est Patient Level 1 Diagnoses Current use of anticoagulant therapy Z79.01 Results AMB INR Fingerstick AMB INR Fingerstick 2.2 Last Edit by Camilla Montes RN on 06/17/24 10:25 interface delay Assessment & Plan Assessment & Plan (1) Current use of anticoagulant therapy: Comment: On Coumadin for mechanical aortic valve. INR target is 2-3. Code(s): Z79.01 - director long term care (current) use of anticoagulants Category: Medical Medications: Discontinued semaglutide (weight loss) (Wegovy) Discontinued Reason: Patient no longer taking 0.5 mg (0.5 mL) subcut QWEEK 2 mL 2RF
[2024-06-17 10:25] LABS: Prothrombin Time Whole Bld POC 26.3 sec (11.1-13.5); ~PT, ~INR - Anti Coag Clinic 2.2 (0.9-1.1)
== END 2024-06-17 10:29 | disposition home or self-care (01) ==
LOC: HO.ACS 09:51
PROVIDERS: PCP Internal Medicine; Visit Provider Internal Medicine
DX: Z79.01 Long term (current) use of anticoagulants (principal)

== ENCOUNTER → 2024-06-17 09:51 | Outpatient (BNVA) | payer MEDICARE, SELFPAY | PROVIDERS: PCP Internal Medicine; Visit Provider Internal Medicine | DX: Z95.2 Presence of prosthetic heart valve (principal); Z79.01 Long term (current) use of anticoagulants; Z51.81 Encounter for therapeutic drug level monitoring | CPT/HCPCS: 85610; 99211 ==

== ENCOUNTER 2024-07-01 09:50 | Outpatient (AMB) | payer MEDICARE, SELFPAY ==
--- NOTE | 2024-07-01 09:57 | MHC.OFFVISCO ---
Intake Intake Visit Reasons: Anticoagulation Allergies No Known Allergies Allergy (Verified 07/01/24 09:51) Medication List - Last Reconciled 07/01/24 by Camilla Montes RN acetaminophen (Tylenol Extra Strength) 1,000 mg PO Q6H cetirizine (Zyrtec) 10 mg PO DAILY PRN clopidogrel 75 mg PO DAILY furosemide 20 mg PO QAM 90 days guaifenesin ER (Mucinex) 600 mg PO BID PRN metoprolol tartrate 100 mg PO BID mv,Ca,min-folic acid-vit K1 400-20 mcg (One-A-Day Women's 50 Plus) 1 tab PO DAILY omeprazole 20 mg PO DAILY rosuvastatin 40 mg PO DAILY semaglutide (weight loss) (Wegovy) 1 mg (0.5 mL) subcut QWEEK warfarin 5 mg See Protocol PO DIRECTED 14 days Nursing Note INR: 2.4- in therapeutic range of 2-3 Medications and supplements reviewed- wegovy at 1mg cont No changes in health, diet, medications, or supplements, Denies any signs and symptoms of bleeding or bruising or clotting. Bleeding, bruising, clotting discussed Nutritional guidance given Dose: 5mg x 3, 7.5mg x 4 F/U INR: pt req 4 weeks Patient verbalizes understanding of instructions given Anti-Coag Initial Assessment Social Hx Patient Tobacco Use Status: Former Tobacco user alcohol intake: current Alcohol intake frequency: holidays/special occasions only Coding Level of Care Code Est Patient Level 1 Diagnoses Current use of anticoagulant therapy Z79.01 Assessment & Plan Assessment & Plan (1) Current use of anticoagulant therapy: Comment: On Coumadin for mechanical aortic valve. INR target is 2-3. Code(s): Z79.01 - intermediate (current) use of anticoagulants Category: Medical
[2024-07-01 09:58] LABS: Prothrombin Time Whole Bld POC 28.8 sec (11.1-13.5); ~PT, ~INR - Anti Coag Clinic 2.4 (0.9-1.1)
== END 2024-07-01 10:06 | disposition home or self-care (01) ==
LOC: HO.ACS 09:50
PROVIDERS: PCP Internal Medicine; Visit Provider Internal Medicine
DX: Z79.01 Long term (current) use of anticoagulants (principal)

== ENCOUNTER → 2024-07-01 09:50 | Outpatient (BNVA) | payer MEDICARE, SELFPAY | PROVIDERS: PCP Internal Medicine; Visit Provider Internal Medicine | DX: Z95.2 Presence of prosthetic heart valve (principal); Z79.01 Long term (current) use of anticoagulants; Z51.81 Encounter for therapeutic drug level monitoring | CPT/HCPCS: 85610; 99211 ==

== ENCOUNTER 2024-07-29 09:41 | Outpatient (AMB) | payer MEDICARE, SELFPAY ==
--- NOTE | 2024-07-29 10:16 | MHC.OFFVISCO ---
Intake Intake Visit Reasons: Anticoagulation Allergies No Known Allergies Allergy (Verified 07/29/24 09:55) Medication List - Last Reconciled 07/29/24 by Nancy Matthews RN acetaminophen (Tylenol Extra Strength) 1,000 mg PO Q6H cetirizine (Zyrtec) 10 mg PO DAILY PRN clopidogrel 75 mg PO DAILY furosemide 20 mg PO QAM 90 days guaifenesin ER (Mucinex) 600 mg PO BID PRN metoprolol tartrate 100 mg PO BID mv,Ca,min-folic acid-vit K1 400-20 mcg (One-A-Day Women's 50 Plus) 1 tab PO DAILY omeprazole 20 mg PO DAILY rosuvastatin 40 mg PO DAILY semaglutide (weight loss) (Wegovy) 1 mg (0.5 mL) subcut QWEEK semaglutide (weight loss) (Wegovy) 1.7 mg (0.75 mL) subcut QWEEK warfarin 5 mg See Protocol PO DIRECTED 14 days Nursing Note NO CP,SOB,DIET/MED CHANGES,FALLS OR SX OF BLEEDING. CONTINUE PRESENT DOSE AND FOLLOW-UP IN 4 WEEKS GOOD UNDERSTANDING OF DOSING INSTR. Anti-Coag Initial Assessment Social Hx Patient Tobacco Use Status: Former Tobacco user alcohol intake: current Alcohol intake frequency: holidays/special occasions only Coding Level of Care Code Est Patient Level 1 Diagnoses Current use of anticoagulant therapy Z79.01 Results AMB INR Fingerstick AMB INR Fingerstick 2.6 Last Edit by Nancy Matthews RN on 07/29/24 10:05 Assessment & Plan Assessment & Plan (1) Current use of anticoagulant therapy: Comment: On Coumadin for mechanical aortic valve. INR target is 2-3. Code(s): Z79.01 - manager long term care (current) use of anticoagulants Category: Medical
[2024-07-29 15:59] LABS: ~PT, ~INR - Anti Coag Clinic 2.6 (0.9-1.1)
== END 2024-07-29 10:19 | disposition home or self-care (01) ==
LOC: HO.ACS 09:41
PROVIDERS: PCP Internal Medicine; Visit Provider Internal Medicine
DX: Z79.01 Long term (current) use of anticoagulants (principal)

== ENCOUNTER → 2024-07-29 09:41 | Outpatient (BNVA) | payer MEDICARE, SELFPAY | PROVIDERS: PCP Internal Medicine; Visit Provider Internal Medicine | DX: Z95.2 Presence of prosthetic heart valve (principal); Z79.01 Long term (current) use of anticoagulants; Z51.81 Encounter for therapeutic drug level monitoring | CPT/HCPCS: 85610; 99211 ==

== ENCOUNTER 2024-08-26 09:47 | Outpatient (AMB) | payer MEDICARE, SELFPAY ==
[2024-08-26 09:59] LABS: Prothrombin Time Whole Bld POC 37.9 sec (11.1-13.5); ~PT, ~INR - Anti Coag Clinic 3.2 (0.9-1.1)
--- NOTE | 2024-08-26 10:02 | MHC.OFFVISCO ---
Intake Intake Visit Reasons: Anticoagulation Allergies No Known Allergies Allergy (Verified 08/26/24 09:51) Medication List - Last Reconciled 08/26/24 by Anabella Michael RN acetaminophen (Tylenol Extra Strength) 1,000 mg PO Q6H cetirizine (Zyrtec) 10 mg PO DAILY PRN clopidogrel 75 mg PO DAILY furosemide 20 mg PO QAM 90 days guaifenesin ER (Mucinex) 600 mg PO BID PRN metoprolol tartrate 100 mg PO BID mv,Ca,min-folic acid-vit K1 400-20 mcg (One-A-Day Women's 50 Plus) 1 tab PO DAILY omeprazole 20 mg PO DAILY rosuvastatin 40 mg PO DAILY semaglutide (weight loss) (Wev) 1.7 mg (0.75 mL) subcut QWEEK warfarin () TAKE 1 TABLET ON SATURDAY, SATURDAY, AND SATURDAY AND 1 AND 1/2 TABLETS ON ALL OTHER 4 DAYS. SUBJECT TO DOSAGE INCREASE BASED ON INTERNATIONAL NORMALIZED RATIO RESULTS Nursing Note Amb to [facility] feeling tired- recent travel with delays Medications and supplements reviewed No changes in health, diet, medications, or supplements, Denies any signs and symptoms of bleeding, bruising, or clotting. Bleeding, bruising, clotting discussed INR: 3.2 above therapeutic range Dose: continue usual dosing 5mg x 3 days and 7.5mg x 4 days Nutritional guidance given- pt agrees to eating more greens today and tomorrow to help get back into range, then usual diet F/U INR: 4 weeks Patient verbalizes understanding of instructions given Anti-Coag Initial Assessment Social Hx Patient Tobacco Use Status: Former Tobacco user alcohol intake: current Alcohol intake frequency: holidays/special occasions only Questionnaires HAS-BLED Does the patient had uncontrolled Hypertension?: No Does the patient have renal disease?: No Does the patient have liver disease?: No Does the patient have a history of stroke?: No Has the patient had major bleeding or predisposition to bleeding?: No Does the patient have labile INRs?: No Is the patient over 65 years of age?: Yes Is the patient on medications that gives them a predisposition to bleeding?: Yes Does the patient use alcohol?: Yes HAS-BLED Score: 3 CHADSVASC Age: 66-74 Gender: Female Does the patient have a history of CHF?: No Does the patient have a history of Hypertension?: No Does the patient have a history of Stroke/TIA/Thromboembolism?: No Does the patient have a history of Vascular Disease (prior AR, PAD or aortic plaque)?: No Does the patient have a history of Diabetes?: No CHADS VACS Score: 2 Magalis Prediction Score Rsk VTE Active Cancer: No Previous VTE, excluding superficial vein thrombosis: No Reduced mobility: No Already known Thrombophilic Condition: Yes With-in last month Trauma and/or Surgery: No Elderly 70 year or older: No Heart and/or Respiratory Failure: No Acute Myocardial infarction and/or Ischemic Stroke: No Acute Infection and/or Rheumatologic Disorder: No Obesity (BMI 30 or greater): Yes Ongoing Hormonal Treatment: No Score: 4 Magalis Score less than 4; Low Risk of VTE Magalis Score 4 or greater; High Risk of VTE Coding Level of Care Code Est Patient Level 1 Diagnoses Current use of anticoagulant therapy Z79.01 Time Spent (min) 15 Assessment & Plan Assessment & Plan (1) Current use of anticoagulant therapy: Comment: On Coumadin for mechanical aortic valve. INR target is 2-3. Code(s): Z79.01 - terminal gauger (current) use of anticoagulants Category: Medical
== END 2024-08-26 10:22 | disposition home or self-care (01) ==
LOC: HO.ACS 09:47
PROVIDERS: PCP Internal Medicine; Visit Provider Internal Medicine Medical Oncology
DX: Z79.01 Long term (current) use of anticoagulants (principal)

== ENCOUNTER → 2024-08-26 09:47 | Outpatient (BNVA) | payer MEDICARE, SELFPAY | PROVIDERS: PCP Internal Medicine; Visit Provider Internal Medicine Medical Oncology | DX: Z95.2 Presence of prosthetic heart valve (principal); Z79.01 Long term (current) use of anticoagulants; Z51.81 Encounter for therapeutic drug level monitoring | CPT/HCPCS: 85610; 99211 ==

== ENCOUNTER 2024-08-28 10:24 | Outpatient (REF) | payer MEDICARE, SELFPAY ==
[2024-08-28 13:23] LABS: MANUAL DIFF FLAG NO
[2024-08-28 13:34] LABS: Basophils Absolute Auto 0.1 X10*3/uL (0.0-0.2); Basophils Percent Auto 0.5 % (0-2); Eosinophils Absolute Auto 0.1 X10*3/uL (0.0-0.4); Eosinophils Percent Auto 1.3 % (0-4); Hematocrit 39.3 % (37.0-47.0); Hemoglobin 12.8 g/dl (12.0-16.0); Imm Gran Abs Auto 0.03 X10*3/uL (0.00-0.03); Imm Gran Pct Auto 0.3 % (0.0-0.4); Lymphocytes Absolute Auto 2.1 X10*3/uL (1.2-4.9); Lymphocytes Percent Auto 21.9 % (20-40); Mean Corpuscular HGB Conc 32.6 g/dl (31.0-35.0); Mean Corpuscular Hemoglobin 27.4 pg (27.0-33.0); Mean Platelet Volume 9.6 fL (9.4-12.3); Monocytes Absolute Auto 0.7 X10*3/uL (0.1-1.2); Monocytes Percent Auto 7.3 % (2-11); Neutrophils Absolute Auto 6.5 x10*3/uL (2.0-8.3); Neutrophils Percent Auto 68.7 % (45-73); Platelet Count 350 X10*3/uL (160-400); Red Blood Count 4.68 X10*6/uL (4.20-5.50); Red Cell Distribution Width 14.1 % (11.0-16.0); White Blood Count 9.4 X10*3/uL (4.8-10.8)
[2024-08-28 13:52] LABS: Estimated Average Glucose 114 mg/dL; Hemoglobin A1C 130.0743 umol/L; Hemoglobin A1c % 5.6 % (<6.0); Total Hemoglobin (HGBA1C) 3427.6384 umol/L
[2024-08-28 13:56] LABS: Alanine Aminotransferase 25 U/L (0-31); Albumin Level 3.9 g/dL (3.5-5.0); Alkaline Phosphatase 96 U/L (39-117); Anion Gap 14 (12-20); Aspartate Amino Transferase 34 U/L (5-31); Bilirubin Total 0.5 mg/dL (0.0-1.0); Blood Urea Nitrogen 8 mg/dL (9-16); Calcium 9.3 mg/dL (8.4-10.2); Carbon Dioxide 27 mmol/L (22-29); Chloride 104 mmol/L (96-108); Cholesterol 154 mg/dL (<200); Estimated Glomerular Filt Rate > 60; Glucose Fasting 121 mg/dL (60-99); HDL Cholesterol 52 mg/dL (>40); LDL Cholesterol Calculated 68 mg/dL (<100); Potassium 3.3 mmol/L (3.3-5.1); Sodium 142 mmol/L (135-145); Total Protein 7.8 g/dL (6.5-8.0); Triglycerides 171 mg/dL (<150)
== END 2024-08-28 10:25 | disposition home or self-care (01) ==
LOC: HO.HMGCLDS 10:24
PROVIDERS: PCP Internal Medicine; Visit Provider Internal Medicine
DX: E78.5 Hyperlipidemia, unspecified (principal); R73.9 Hyperglycemia, unspecified
CPT/HCPCS: 36415; 80053; 80061; 83036; 85025

== ENCOUNTER 2024-08-31 10:34 | Outpatient (AMB) | payer MEDICARE, SELFPAY ==
[2024-08-31 10:43] VITALS: BP 130/78; PULSE 96; RESP 20; TEMP 37.1; O2SAT 97; BMI 42.6
--- NOTE | 2024-08-31 10:43 | MHC.PC.OV ---
Vital Signs 08/31/24 10:43 Height 5 ft 5 in Weight 256 lb BMI 42.6 BP 130/78 Blood Pressure Location Lt brachial Position Sitting Respiration 20 Pulse 96 Pulse Source Pulse Oximeter Temp 98.7 F Temp Source Oral Pulse Oximetry (%) 97 Oxygen Delivery Method Room Air Intake Visit Reasons: 3 months f/up Intake Note: Pt is here today for 3 months follow up visit. Allergies No Known Allergies Allergy (Verified 08/31/24 11:04) Medication List - Last Reconciled 08/31/24 by Lizzie Hummel MD acetaminophen (Tylenol Extra Strength) 1,000 mg PO Q6H cetirizine (Zyrtec) 10 mg PO DAILY PRN clopidogrel 75 mg PO DAILY furosemide 20 mg PO QAM 90 days guaifenesin ER (Mucinex) 600 mg PO BID PRN lisinopril 5 mg PO DAILY metoprolol tartrate 100 mg PO BID mv,Ca,min-folic acid-vit K1 400-20 mcg (One-A-Day Women's 50 Plus) 1 tab PO DAILY omeprazole 20 mg PO DAILY rosuvastatin 40 mg PO DAILY semaglutide (weight loss) (Wegovy) 2.4 mg (0.75 mL) subcut QWEEK warfarin (Jantoven) See Protocol TAKE 1 TABLET ON SATURDAY, SATURDAY, AND SATURDAY AND 1 AND 1/2 TABLETS ON ALL OTHER 4 DAYS. SUBJECT TO DOSAGE INCREASE BASED ON INTERNATIONAL NORMALIZED RATIO RESULTS Tobacco use date assessed: 08/31/24 Fall risk assessment: No Falls in past year Last assessed Fall Risk: 08/31/24 Dental Screening Dental Screen Date: 08/31/24 Did you have a dental visit in the last 12 months?: Yes Did you have a dental problem in the last 6 months where you did not have access to dental care?: No Was dental information given to patient?: Patient has dentist HPI 3 months f/up HPI Details Patient presents for the follow-up of hypertension hyperlipidemia obesity. She has been taking Wegovy for weight loss and was able to lose 10 lb. Patient has been decreasing caloric intake increasing physical activity. [facility] Medical History Greater trochanteric pain syndrome Hyperglycemia Hyperparathyroidism Overweight Hyperlipidemia Annual physical exam Normal Pap smear Normal colonoscopy Mammogram normal Rodriguez esophagus FH: cholecystectomy Surgical History S/P cardiac catheterization History of cardiac cath Hx of cholecystectomy S/P AVR (aortic valve replacement) H/O colonoscopy Family History Mother CAD (coronary artery disease) PVD (peripheral vascular disease) Father Bladder cancer Brother CAD (coronary artery disease) PVD (peripheral vascular disease) Social History Household Members Other:: , 3 children, walks daily, retired, moved from [facility] 06/2019 Housing: House Alcohol intake: current Alcohol intake frequency: holidays/special occasions only Patient Tobacco Use Status: Former Tobacco user Years Smoked: Non-heavy smoker less than 1 year. Exposed to 2nd handsmoke growing up. e-Cigarette/Vaping Use: Never Used service: No Current occupational status: retired Cognitive needs: No Hearing needs: No Vision needs: Yes Questionnaire PHQ-9 Over the last 2 weeks, how often have you been bothered by any of the following problems? 1. Little interest or pleasure in doing things: not at all 2. Feeling down, depressed, or hopeless: not at all 3. Trouble falling or staying asleep, or sleeping too much: not at all 4. Feeling tired or having little energy: not at all 5. Poor appetite or overeating: not at all 6. Feeling bad about yourself - or that you are a failure or have let yourself or your family down: not at all 7. Trouble concentrating on things, such as reading the newspaper or watching television: not at all 8. Moving or speaking so slowly that other people could have noticed. Or the opposite - being so fidgety or restless that you have been moving around a lot more than usual: not at all 9. Thoughts that you would be better off or of hurting yourself in some way: not at all Total score: 0 Depression Screening Interpretation: Negative Depression Screening Done: Yes 25265 - PHQ-9 Billing: Yes Source: Developed by Drs. Hemanth Montana, Evita Gongora, Waqar Farrell and colleagues, with an educational jabier from [employer]. Thrive Questionnaire Date Thrive assessed: 08/31/24 I am a: Patient What is your living situation today?: I have a steady place to live Within the past 12 months, did the food you bought not last and you didn't have the money to get more?: Never true Within the past 12 months, did you worry whether your food would run out before you got money to buy more?: Never true Do you have trouble paying for medicines?: No Do you have trouble getting transportation to medical appointments?: No Do you have trouble paying your heating and electricity bill?: No Do you have trouble taking care of your child, family member or friend?: No Do you have trouble with day-to-day activities such as bathing, preparing meals, shopping, managing finances, etc.?: No Are you currently unemployed and looking for a job?: No Are you interested in more education?: No Please select the resources that you would like help with: None Currently or been in a relationship where the following occur: No concerns reported THRIVE Score: 0 AUDIT C Alcohol Use Questionnaire (AUDIT-C) 1. How often do you have a drink containing alcohol?: 2-4 times a month 2. How many drinks containing alcohol do you have on a typical day when you are drinking?: 1 or 2 3. How often do you have six or more drinks on one occasion?: Never Total Score: 2 EDUARDA-7 AMB Questionnaire EDUARDA-7 Date EDUARDA - 7 assessed: 08/31/24 Feeling nervous, anxious, or on edge: 0 = Not at all Not being able to stop or control worryin = Not at all Worrying too much about different things: 0 = Not at all Trouble relaxin = Not at all Being so restless that it is hard to sit still: 0 = Not at all Becoming easily annoyed or irritable: 0 = Not at all Feeling afraid as if something awful might happen: 0 = Not at all Total EDUARDA-7 score (0-4 normal; 5-9 mild; 10-14 moderate; 15-21 severe): 0 Source: Developed by Drs. Hemanth Montana, Evita Gongora, Waqar Farrell and colleagues, with an educational jabier from [employer]. EDUARDA-7 Assessment Billing EDUARDA-7 Assessment Tool: EDUARDA-7 Assessment 38299 Review of Systems Const All systems reviewed & are unremarkable except as noted in HPI and below Eyes Reports no additional complaints Resp Reports no additional complaints GI Reports no additional complaints Reports no additional complaints Physical exam (Primary Care) Vital Signs: Last Vital Signs Temp 98.7 F 08/31/24 10:43 Pulse 96 08/31/24 10:43 Resp 20 08/31/24 10:43 BP 130/78 08/31/24 10:43 Pulse Ox 97 08/31/24 10:43 Oxygen Delivery Method Room Air 08/31/24 10:43 BMI result Body Mass Index 42.6 Tobacco/Smoking Status: Tobacco use Status Tobacco use date assessed 08/31/24 08/31/24 11:07 Patient Tobacco Use Status Former Tobacco user 08/31/24 10:43 e-Cigarette/Vaping Use Never Used 08/31/24 10:43 PHQ-9: PHQ-9 Score PHQ-9: Total score 0 08/31/24 11:07 Depression Screening Interpretation: Negative Thrive Assessment: Date of Thrive Assessment Date Thrive assessed 08/31/24 08/31/24 11:07 Currently or been in a relationship where the following occur: No concerns reported Const General: no acute distress HENMT Head: Yes normal to inspection Eyes General: appearance normal, both eyes and all related structures Neck Neck: Yes supple Resp Effort & Inspection: normal respiratory effort Auscultation: clear to auscultation bilaterally Cardio Rhythm: regular rhythm Heart sounds: S1 normal heart sound present and S2 normal heart sound present GI Inspection: Yes normal to inspection Palpation (GI): Soft to palpation Percussion: Yes normal to percussion Auscultation: normal bowel sounds Coding Level of Care Code Est Pt Level 4 (48180) Diagnoses Hyperglycemia R73.9 Hyperlipidemia E78.5 HTN (hypertension) I10 CAD (coronary artery disease) I25.10 Obese E66.9 Additional Codes EDUARDA-7 Assessment Billing - EDUARDA-7 Assessment Tool: EDUARDA-7 Assessment 10677 ([id number]) PHQ-9 - 27543 - PHQ-9 Billing: Yes ([id number]) Assessment & Plan Assessment & Plan (1) Hyperglycemia: Comment: A1C 6.0 10/01 Code(s): R73.9 - Hyperglycemia, unspecified Category: Medical Plan: A1C 5.6, cont ADA diet, exercise, weight loss (2) Hyperlipidemia: Code(s): E78.5 - Hyperlipidemia, unspecified Category: Medical Plan: cont statin (3) HTN (hypertension): Code(s): I10 - Essential (primary) hypertension Category: Medical Plan: Add 5 mg of lisinopril. Check basic metabolic panel in 1 week (4) CAD (coronary artery disease): Comment: s/p LAD GREGORY 05/30, f/u [facility] Cardiology Code(s): I25.10 - Atherosclerotic heart disease of [place] coronary artery without angina pectoris Category: Medical Plan: Continue beta dominick high dose of statin and follow-up with Cardiology (5) Obese: Comment: BMI 42.9 Code(s): E66.9 - Obesity, unspecified Category: Medical Plan: Increase Wegovy to 2.4 mg weekly for 3 months increase physical activity decrease caloric intake. Follow-up in 3 months Orders: Orders Lipid Panel 3 Months E78.5 - Hyperlipidemia, unspecified, E87.6 - Hypokalemia, I10 - Essential (primary) hypertension, R73.9 - Hyperglycemia, unspecified Basic Metabolic Panel 1 Week E87.6 - Hypokalemia Comprehensive [place]. Panel Fast 3 Months E78.5 - Hyperlipidemia, unspecified, E87.6 - Hypokalemia, I10 - Essential (primary) hypertension, R73.9 - Hyperglycemia, unspecified Hemoglobin A1c 3 Months E78.5 - Hyperlipidemia, unspecified, E87.6 - Hypokalemia, I10 - Essential (primary) hypertension, R73.9 - Hyperglycemia, unspecified Complete Blood Count Auto Diff 3 Months E78.5 - Hyperlipidemia, unspecified, E87.6 - Hypokalemia, I10 - Essential (primary) hypertension, R73.9 - Hyperglycemia, unspecified Microalbumin, Random (w Creat) 3 Months E78.5 - Hyperlipidemia, unspecified, E87.6 - Hypokalemia, I10 - Essential (primary) hypertension, R73.9 - Hyperglycemia, unspecified Medications: New lisinopril 5 mg PO DAILY 90 tabs 0RF semaglutide (weight loss) (Wegovy) 2.4 mg (0.75 mL) subcut QWEEK 9 mL 0RF Discontinued semaglutide (weight loss) (Wegovy) Discontinued Reason: Doctor's Order 1.7 mg (0.75 mL) subcut QWEEK 3 mL 2RF
== END 2024-08-31 11:28 | disposition home or self-care (01) ==
LOC: HO.HMCC 10:35
PROVIDERS: PCP Internal Medicine; Visit Provider Internal Medicine
DX: R73.9 Hyperglycemia, unspecified (principal); Z68.41 Body mass index [BMI] 40.0-44.9, adult; E66.9 Obesity, unspecified; E78.5 Hyperlipidemia, unspecified; I10 Essential (primary) hypertension; I25.10 Atherosclerotic heart disease of native coronary artery without angina pectoris

== ENCOUNTER → 2024-08-31 10:34 | Outpatient (BNVA) | payer MEDICARE, SELFPAY | PROVIDERS: PCP Internal Medicine; Visit Provider Internal Medicine | DX: R73.9 Hyperglycemia, unspecified (principal); R78.5 Finding of other psychotropic drug in blood; E66.9 Obesity, unspecified; Z68.41 Body mass index [BMI] 40.0-44.9, adult; I10 Essential (primary) hypertension; I25.10 Atherosclerotic heart disease of native coronary artery without angina pectoris; Z71.3 Dietary counseling and surveillance | CPT/HCPCS: 96127; 99212 ==

== ENCOUNTER 2024-09-07 11:00 | Outpatient (REF) | payer MEDICARE, SELFPAY ==
[2024-09-07 14:11] LABS: Anion Gap 14 (12-20); Blood Urea Nitrogen 17 mg/dL (9-16); Calcium 9.7 mg/dL (8.4-10.2); Carbon Dioxide 24 mmol/L (22-29); Chloride 105 mmol/L (96-108); Estimated Glomerular Filt Rate > 60; Glucose Random 116 mg/dL (60-115); Potassium 3.7 mmol/L (3.3-5.1); Sodium 139 mmol/L (135-145)
== END 2024-09-07 11:01 | disposition home or self-care (01) ==
LOC: HO.HMGCLDS 11:00
PROVIDERS: PCP Internal Medicine; Visit Provider Internal Medicine
DX: E87.6 Hypokalemia (principal)
CPT/HCPCS: 36415; 80048

== ENCOUNTER 2024-09-23 09:45 | Outpatient (AMB) | payer MEDICARE, SELFPAY ==
--- NOTE | 2024-09-23 10:00 | MHC.OFFVISCO ---
Intake Intake Visit Reasons: Anticoagulation Allergies No Known Allergies Allergy (Verified 09/23/24 09:50) Medication List - Last Reconciled 09/23/24 by Camilla Montes RN acetaminophen (Tylenol Extra Strength) 1,000 mg PO Q6H cetirizine (Zyrtec) 10 mg PO DAILY PRN clopidogrel 75 mg PO DAILY furosemide 20 mg PO QAM 90 days guaifenesin ER (Mucinex) 600 mg PO BID PRN lisinopril 5 mg PO DAILY metoprolol tartrate 100 mg PO BID mv,Ca,min-folic acid-vit K1 400-20 mcg (One-A-Day Women's 50 Plus) 1 tab PO DAILY omeprazole 20 mg PO DAILY rosuvastatin 40 mg PO DAILY semaglutide (weight loss) ([facility]) 2.4 mg (0.75 mL) subcut QWEEK warfarin () See Protocol TAKE 1 TABLET ON SATURDAY, SATURDAY, AND SATURDAY AND 1 AND 1/2 TABLETS ON ALL OTHER 4 DAYS. SUBJECT TO DOSAGE INCREASE BASED ON INTERNATIONAL NORMALIZED RATIO RESULTS Nursing Note INR: 2.0- in therapeutic range of 2-3 Medications and supplements reviewed- new med lisinopril- no interaction with warfarin per micromedex No changes in health, diet, medications, or supplements, Denies any signs and symptoms of bleeding or bruising or clotting. Bleeding, bruising, clotting discussed Nutritional guidance given - no greens for 2 days, eat a red today Dose: 5mg x 3, 7.5mg x 4 F/U INR: pt req 4 weeks Patient verbalizes understanding of instructions given Anti-Coag Initial Assessment Social Hx Patient Tobacco Use Status: Former Tobacco user alcohol intake: current Alcohol intake frequency: holidays/special occasions only Coding Level of Care Code Est Patient Level 1 Diagnoses Current use of anticoagulant therapy Z79.01 Assessment & Plan Assessment & Plan (1) Current use of anticoagulant therapy: Comment: On Coumadin for mechanical aortic valve. INR target is 2-3. Code(s): Z79.01 - long-term (current) use of anticoagulants Category: Medical
[2024-09-23 10:01] LABS: Prothrombin Time Whole Bld POC 24.2 sec (11.1-13.5)
== END 2024-09-23 10:14 | disposition home or self-care (01) ==
LOC: HO.ACS 09:45
PROVIDERS: PCP Internal Medicine; Visit Provider Internal Medicine Medical Oncology
DX: Z79.01 Long term (current) use of anticoagulants (principal)

== ENCOUNTER → 2024-09-23 09:45 | Outpatient (BNVA) | payer MEDICARE, SELFPAY | PROVIDERS: PCP Internal Medicine; Visit Provider Internal Medicine Medical Oncology | DX: Z95.2 Presence of prosthetic heart valve (principal); Z79.01 Long term (current) use of anticoagulants; Z51.81 Encounter for therapeutic drug level monitoring | CPT/HCPCS: 85610; 99211 ==

== ENCOUNTER 2024-10-14 10:04 | Outpatient (AMB) | payer MEDICARE, SELFPAY ==
[2024-10-14 10:21] LABS: ~PT, ~INR - Anti Coag Clinic 1.8 (0.9-1.1)
--- NOTE | 2024-10-14 10:21 | MHC.OFFVISCO ---
Intake Intake Visit Reasons: Anticoagulation Allergies No Known Allergies Allergy (Verified 10/14/24 10:13) Medication List - Last Reconciled 10/14/24 by Camilla Montes RN acetaminophen (Tylenol Extra Strength) 1,000 mg PO Q6H cetirizine (Zyrtec) 10 mg PO DAILY PRN clopidogrel 75 mg PO DAILY furosemide 20 mg PO QAM 90 days guaifenesin ER (Mucinex) 600 mg PO BID PRN lisinopril 5 mg PO DAILY metoprolol tartrate 100 mg PO BID mv,Ca,min-folic acid-vit K1 400-20 mcg (One-A-Day Women's 50 Plus) 1 tab PO DAILY omeprazole 20 mg PO DAILY rosuvastatin 40 mg PO DAILY semaglutide (weight loss) (Wevy) 2.4 mg (0.75 mL) subcut QWEEK warfarin () See Protocol TAKE 1 TABLET ON SATURDAY, SATURDAY, AND SATURDAY AND 1 AND 1/2 TABLETS ON ALL OTHER 4 DAYS. SUBJECT TO DOSAGE INCREASE BASED ON INTERNATIONAL NORMALIZED RATIO RESULTS Nursing Note INR 1.8-?? out of therapeutic range 2-3 Medications and supplements reviewed Patient status: pt returned from [facility], denies missed dose Medications or supplements: no changes Diet: taking protein shakes daily Denies any signs and symptoms of bleeding or clotting or unusual bruising Bleeding, bruising, clotting discussed Nutritional guidance given: no greens for 2 days Dose: increase weekly dosing sl, 5mg x 2, 7.5mg x 5 due to protein shakes F/U INR Date : 2 weeks?? Patient verbalizing understanding of instructions given. pt states taking protein shakes daily- which can lower inr Anti-Coag Initial Assessment Social Hx Patient Tobacco Use Status: Former Tobacco user alcohol intake: current Alcohol intake frequency: holidays/special occasions only Coding Level of Care Code Est Patient Level 1 Diagnoses Current use of anticoagulant therapy Z79.01 Assessment & Plan Assessment & Plan (1) Current use of anticoagulant therapy: Comment: On Coumadin for mechanical aortic valve. INR target is 2-3. Code(s): Z79.01 - prison (current) use of anticoagulants Category: Medical
== END 2024-10-14 10:29 | disposition home or self-care (01) ==
LOC: HO.ACS 10:04
PROVIDERS: PCP Internal Medicine; Visit Provider Internal Medicine Medical Oncology
DX: Z79.01 Long term (current) use of anticoagulants (principal)

== ENCOUNTER → 2024-10-14 10:04 | Outpatient (BNVA) | payer MEDICARE, SELFPAY | PROVIDERS: PCP Internal Medicine; Visit Provider Internal Medicine Medical Oncology | DX: Z95.2 Presence of prosthetic heart valve (principal); Z51.81 Encounter for therapeutic drug level monitoring; Z79.01 Long term (current) use of anticoagulants | CPT/HCPCS: 85610; 99211 ==

== ENCOUNTER 2024-10-19 11:06 | Outpatient (AMB) | payer MEDICARE, SELFPAY ==
[2024-10-19 11:21] VITALS: BP 120/64; PULSE 99; BMI 40.4
--- NOTE | 2024-10-19 11:21 | A.OFFVIS_ITS ---
Vital Signs 10/19/24 11:21 Height 5 ft 5 in Weight 242 lb 15.19 oz BMI 40.4 BP 120/64 Blood Pressure Location Lt radial Position Sitting Pulse 99 Pulse Source Monitor Intake Visit Reasons: 6m follow up Intake Note: 6 mth f/up [employer] Required: No Accompanied by: Self / Same As Patient Allergies No Known Allergies Allergy (Verified 10/14/24 10:13) Medication List - Last Reconciled 10/19/24 by You Prince MD acetaminophen (Tylenol Extra Strength) 1,000 mg PO Q6H cetirizine (Zyrtec) 10 mg PO DAILY PRN clopidogrel 75 mg PO DAILY furosemide 20 mg PO QAM 90 days guaifenesin ER (Mucinex) 600 mg PO BID PRN lisinopril 5 mg PO DAILY metoprolol tartrate 100 mg PO BID mv,Ca,min-folic acid-vit K1 400-20 mcg (One-A-Day Women's 50 Plus) 1 tab PO DAILY omeprazole 20 mg PO DAILY rosuvastatin 40 mg PO DAILY semaglutide (weight loss) (Wegovy) 2.4 mg (0.75 mL) subcut QWEEK warfarin (Juntoven) See Protocol TAKE 1 TABLET ON SATURDAY, SATURDAY, AND SATURDAY AND 1 AND 1/2 TABLETS ON ALL OTHER 4 DAYS. SUBJECT TO DOSAGE INCREASE BASED ON INTERNATIONAL NORMALIZED RATIO RESULTS HPI Comments Details: 69-year-old female with background history of coronary artery disease with single-vessel PCI as well as severe aortic stenosis for which she underwent mechanical aortic valve replacement 2015 at [facility] in [facility]. 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 Recently she moved to this area to live close to family. Old records reviewed. In August 2013 she had 2 episodes of left arm and chest pain. She had moderate aortic stenosis at that time. She underwent stress testing which showed transient ischemic dilatation. Subsequent to that she underwent cardiac catheterization which confirmed moderate aortic stenosis on showed ostial right coronary artery stenosis which was treated with bare metal stent. She also in a mid LAD lesion which was thought to be intermediate but no FFR was performed. In July 2015 she had echocardiography which showed severe aortic stenosis and she underwent aortic valve replacement with 19 mm [facility] [employer] medical mechanical aortic valve. 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 On last visit she was complaining of shortness of breath. After discussion she was sent for echocardiography. Initially we decided to a stress test but because she has dyspnea on exertion with her coronary disease in the past we decided to a cardiac catheterization. Cardiac catheterization showed mid LAD 90% stenosis which was treated with drug-eluting stent. A 3 x 18 tabby resolute drug-eluting stent was placed. Echo showed normal LV systolic function with moderate left ventricular hypertrophy. Filling pressures were indeterminate. Aortic valve had high velocities of 3.49 m/sec with aortic valve area 1.29 cm2. Findings were consistent with her known diagnosis of patient prosthesis mismatch. After cardiac catheterization her symptoms have improved completely. She is here for follow-up today and has been walking and is back to her baseline. No bleeding issues. Continues to be stable on follow-up without any significant issues. No bleeding concerns. 12/17/22: She returns for follow-up. She has been taking medication regularly. Her blood pressure control is good. She is complaining of some dyspnea specially when she is going up stairs. She has knee arthritis and feels limited by pain. No orthopnea or PND. She has mild peripheral edema and is currently using 10 mg of Lasix daily. She is on Coumadin for mechanical aortic valve in the past. 04/22/2023: She returns for follow-up. She has been doing well and has been physically active. No chest discomfort shortness of breath. As mentioned above dyspnea is her anginal equivalent. No bleeding concerns. She is taking Plavix and Coumadin. She has a mechanical aortic valve. 10/23/23: She returns for follow-up. She has been doing well. She is returned from [place] after 2 week vacation. She walked a lot and had no symptoms. In particular no chest pain or shortness of breath. Blood pressure is well controlled. She is taking Coumadin and Plavix and has no bleeding concerns. 04/27/2024: She is here for follow-up. She has been doing well. She is planning to go for vacation to [facility]. Clinically she has no symptoms. No bleeding concerns. 10/19/2024: Here for follow-up. Denying any chest discomfort or shortness of breath. She has been active and has no exertional symptoms. Taking medication regularly without any bleeding concerns. [facility] Medical History Greater trochanteric pain syndrome Hyperglycemia Hyperparathyroidism Overweight Hyperlipidemia Annual physical exam Normal Pap smear Normal colonoscopy Mammogram normal Rodriguez esophagus FH: cholecystectomy Surgical History S/P cardiac catheterization History of cardiac cath Hx of cholecystectomy S/P AVR (aortic valve replacement) H/O colonoscopy Family History Mother CAD (coronary artery disease) PVD (peripheral vascular disease) Father Bladder cancer Brother CAD (coronary artery disease) PVD (peripheral vascular disease) Social History Household Members Other:: , 3 children, walks daily, retired, moved from [facility] 06/2019 Housing: House Alcohol intake: current Alcohol intake frequency: holidays/special occasions only Patient Tobacco Use Status: Former Tobacco user Years Smoked: Non-heavy smoker less than 1 year. Exposed to 2nd handsmoke growing up. e-Cigarette/Vaping Use: Never Used service: No Current occupational status: retired Cognitive needs: No Hearing needs: No Vision needs: Yes Review of Systems Const Denies chills, Denies fatigue, Denies fever(s), Denies frequent falls, Denies weakness, Denies weight gain and Denies weight loss ENT Denies dizziness Card Denies chest pain, Denies leg edema, Denies lightheadedness, Denies palpitations, Denies dyspnea and Denies dyspnea on exertion Resp Denies cough, Denies dyspnea and Denies dyspnea on exertion GI Denies hematochezia Musc Denies abnormal gait, Denies muscle weakness, Denies numbness, Denies radiating pain into limb and Denies tingling Neuro Denies abnormal gait, Denies dizziness, Denies frequent falls, Denies numbness, Denies tingling and Denies weakness Endo Denies fatigue and Denies palpitations Physical Exam Vital Signs: Last Vital Signs Pulse 99 10/19/24 11:21 BP 120/64 10/19/24 11:21 BMI result Body Mass Index 40.4 GENERAL APPEARANCE: in no acute distress. NECK/THYROID: no carotid bruit, no jugular venous distention. SKIN: no suspicious lesions, warm and dry. HEART: systolic murmur in aortic area, mechanical 2nd heart sound. LUNGS: clear to auscultation bilaterally. ABDOMEN: normal, bowel sounds present, soft, nontender, nondistended. EXTREMITIES: Trace edema. PERIPHERAL PULSES: equal. NEUROLOGIC: nonfocal, alert and oriented. PSYCH: mood/affect full range. Assessment & Plan Assessment & Plan (1) S/P AVR (aortic valve replacement): Comment: [facility] mechanical on Coumadin, 07/2015 Code(s): Z95.2 - Presence of prosthetic heart valve Category: Surgical (2) PRIETO (dyspnea on exertion): Code(s): R06.00 - Dyspnea, unspecified Category: Medical (3) CAD (coronary artery disease): Comment: s/p LAD GREGORY 05/30, f/u [facility] Cardiology Code(s): I25.10 - Atherosclerotic heart disease of [place] coronary artery without angina pectoris Category: Medical Plan 69-year-old female who is here for follow-up. She has known history of mechanical aortic valve replacement in the past and coronary artery disease. Clinically not in heart failure. Blood pressure is well controlled. She is on Coumadin and Plavix currently. She has patient prosthesis mismatch and high gradient across the aortic valve. Clinically she has been stable. We will continue to monitor this with yearly echocardiography. Follow-up in 4-6 months. Thank you for allowing me to participate in the care of your patient. Please feel free to contact me if you have any questions. Coding Level of Care Code Est Pt Level 4 (93743) Diagnoses S/P AVR (aortic valve replacement) Z95.2 PRIETO (dyspnea on exertion) R06.00 CAD (coronary artery disease) I25.10
== END 2024-10-19 11:47 | disposition home or self-care (01) ==
LOC: HO.HCS 11:07
PROVIDERS: PCP Internal Medicine; Visit Provider Internal Medicine Cardiovascular Disease
DX: Z95.2 Presence of prosthetic heart valve (principal); R06.00 Dyspnea, unspecified; I25.10 Atherosclerotic heart disease of native coronary artery without angina pectoris
CPT/HCPCS: 93010; 99214

== ENCOUNTER → 2024-10-19 11:06 | Outpatient (BNVA) | payer MEDICARE, SELFPAY | PROVIDERS: PCP Internal Medicine; Visit Provider Internal Medicine Cardiovascular Disease | DX: R06.00 Dyspnea, unspecified (principal); I25.10 Atherosclerotic heart disease of native coronary artery without angina pectoris; Z95.2 Presence of prosthetic heart valve; Z87.891 Personal history of nicotine dependence | CPT/HCPCS: 93005; 99212 ==

== ENCOUNTER 2024-10-28 10:08 | Outpatient (AMB) | payer MEDICARE, SELFPAY ==
[2024-10-28 10:15] LABS: Prothrombin Time Whole Bld POC 27.9 sec (11.1-13.5); ~PT, ~INR - Anti Coag Clinic 2.3 (0.9-1.1)
--- NOTE | 2024-10-28 10:32 | MHC.OFFVISCO ---
Intake Intake Visit Reasons: Anticoagulation Allergies No Known Allergies Allergy (Verified 10/28/24 10:09) Medication List - Last Reconciled 10/28/24 by Nancy Matthews, RN acetaminophen (Tylenol Extra Strength) 1,000 mg PO Q6H cetirizine (Zyrtec) 10 mg PO DAILY PRN clopidogrel 75 mg PO DAILY furosemide 20 mg PO QAM 90 days guaifenesin ER (Mucinex) 600 mg PO BID PRN lisinopril 5 mg PO DAILY metoprolol tartrate 100 mg PO BID mv,Ca,min-folic acid-vit K1 400-20 mcg (One-A-Day Women's 50 Plus) 1 tab PO DAILY omeprazole 20 mg PO DAILY rosuvastatin 40 mg PO DAILY semaglutide (weight loss) (Wevy) 2.4 mg (0.75 mL) subcut QWEEK warfarin () See Protocol TAKE 1 TABLET ON SATURDAY, SATURDAY, AND SATURDAY AND 1 AND 1/2 TABLETS ON ALL OTHER 4 DAYS. SUBJECT TO DOSAGE INCREASE BASED ON INTERNATIONAL NORMALIZED RATIO RESULTS Nursing Note NO CP,SOB,DIET/MED CHANGES,FALLS OR SX OF BLEEDING. CONTINUE PRESENT DOSE AND FOLLOW-UP IN 2 WEEKS WILL CONTINUE WITH THE PROTEIN SHAKES INR IS BETTER AFTER DOSE INCREASE 2 WEEKS AGO Anti-Coag Initial Assessment Social Hx Patient Tobacco Use Status: Former Tobacco user alcohol intake: current Alcohol intake frequency: holidays/special occasions only Coding Level of Care Code Est Patient Level 1 Diagnoses Current use of anticoagulant therapy Z79.01 Assessment & Plan Assessment & Plan (1) Current use of anticoagulant therapy: Comment: On Coumadin for mechanical aortic valve. INR target is 2-3. Code(s): Z79.01 - care home (current) use of anticoagulants Category: Medical
== END 2024-10-28 10:36 | disposition home or self-care (01) ==
LOC: HO.ACS 10:08
PROVIDERS: PCP Internal Medicine; Visit Provider Internal Medicine Medical Oncology
DX: Z79.01 Long term (current) use of anticoagulants (principal)

== ENCOUNTER → 2024-10-28 10:08 | Outpatient (BNVA) | payer MEDICARE, SELFPAY | PROVIDERS: PCP Internal Medicine; Visit Provider Internal Medicine Medical Oncology | DX: Z95.2 Presence of prosthetic heart valve (principal); Z79.01 Long term (current) use of anticoagulants; Z51.81 Encounter for therapeutic drug level monitoring | CPT/HCPCS: 85610; 99211 ==

== ENCOUNTER 2024-11-11 10:02 | Outpatient (AMB) | payer MEDICARE, SELFPAY ==
[2024-11-11 10:12] LABS: Prothrombin Time Whole Bld POC 20.4 sec (11.1-13.5); ~PT, ~INR - Anti Coag Clinic 1.7 (0.9-1.1)
--- NOTE | 2024-11-11 10:23 | MHC.OFFVISCO ---
Intake Intake Visit Reasons: Anticoagulation Allergies No Known Allergies Allergy (Verified 11/11/24 10:07) Medication List - Last Reconciled 11/11/24 by Nancy Matthews RN acetaminophen (Tylenol Extra Strength) 1,000 mg PO Q6H cetirizine (Zyrtec) 10 mg PO DAILY PRN clopidogrel 75 mg PO DAILY furosemide 20 mg PO QAM 90 days guaifenesin ER (Mucinex) 600 mg PO BID PRN lisinopril 5 mg PO DAILY metoprolol tartrate 100 mg PO BID mv,Ca,min-folic acid-vit K1 400-20 mcg (One-A-Day Women's 50 Plus) 1 tab PO DAILY omeprazole 20 mg PO DAILY rosuvastatin 40 mg PO DAILY semaglutide (weight loss) (Wevy) 2.4 mg (0.75 mL) subcut QWEEK warfarin () See Protocol TAKE 1 TABLET ON SATURDAY, SATURDAY, AND SATURDAY AND 1 AND 1/2 TABLETS ON ALL OTHER 4 DAYS. SUBJECT TO DOSAGE INCREASE BASED ON INTERNATIONAL NORMALIZED RATIO RESULTS Nursing Note NO MISSED DOSES,CP,SOB,DIET/MED CHANGESFALLS OR SX OF BLEEDING. PT.STILL HAVING DAILY PROTEIN SHAKES, SO WILL INCREASE WEEKLY DOSE AND RECHCK INR IN 2 WEEKS. BOOST TO 10MGM TODAY ONLY. GOOD UNDERSTANDING OF DOSING INSTR. Anti-Coag Initial Assessment Social Hx Patient Tobacco Use Status: Former Tobacco user alcohol intake: current Alcohol intake frequency: holidays/special occasions only Coding Level of Care Code Est Patient Level 1 Diagnoses Current use of anticoagulant therapy Z79.01 Assessment & Plan Assessment & Plan (1) Current use of anticoagulant therapy: Comment: On Coumadin for mechanical aortic valve. INR target is 2-3. Code(s): Z79.01 - residential (current) use of anticoagulants Category: Medical
== END 2024-11-11 10:32 | disposition home or self-care (01) ==
LOC: HO.ACS 10:02
PROVIDERS: PCP Internal Medicine; Visit Provider Internal Medicine Medical Oncology
DX: Z79.01 Long term (current) use of anticoagulants (principal)

== ENCOUNTER → 2024-11-11 10:02 | Outpatient (BNVA) | payer MEDICARE, SELFPAY | PROVIDERS: PCP Internal Medicine; Visit Provider Internal Medicine Medical Oncology | DX: Z95.2 Presence of prosthetic heart valve (principal); Z79.01 Long term (current) use of anticoagulants; Z51.81 Encounter for therapeutic drug level monitoring | CPT/HCPCS: 85610; 99211 ==

== ENCOUNTER 2024-11-25 10:04 | Outpatient (AMB) | payer MEDICARE, SELFPAY ==
--- NOTE | 2024-11-25 10:16 | MHC.OFFVISCO ---
Intake Intake Visit Reasons: Anticoagulation Allergies No Known Allergies Allergy (Verified 11/25/24 10:12) Medication List - Last Reconciled 11/25/24 by Camilla Montes RN acetaminophen (Tylenol Extra Strength) 1,000 mg PO Q6H cetirizine (Zyrtec) 10 mg PO DAILY PRN clopidogrel 75 mg PO DAILY furosemide 20 mg PO QAM 90 days guaifenesin ER (Mucinex) 600 mg PO BID PRN lisinopril 5 mg PO DAILY metoprolol tartrate 100 mg PO BID mv,Ca,min-folic acid-vit K1 400-20 mcg (One-A-Day Women's 50 Plus) 1 tab PO DAILY omeprazole 20 mg PO DAILY rosuvastatin 40 mg PO DAILY semaglutide (weight loss) (Wegovy) 2.4 mg (0.75 mL) subcut QWEEK warfarin (Junto) See Protocol TAKE 1 TABLET ON SATURDAY, SATURDAY, AND SATURDAY AND 1 AND 1/2 TABLETS ON ALL OTHER 4 DAYS. SUBJECT TO DOSAGE INCREASE BASED ON INTERNATIONAL NORMALIZED RATIO RESULTS Nursing Note INR: 2.2- in therapeutic range of 2-3 Medications and supplements reviewed- no changes No changes in health, diet, medications, or supplements, Denies any signs and symptoms of bleeding or bruising or clotting. Bleeding, bruising, clotting discussed Nutritional guidance given Dose: 5mg x 1. 7.5mg x 6 F/U INR: pt req 3 weeks due to travel Patient verbalizes understanding of instructions given Anti-Coag Initial Assessment Social Hx Patient Tobacco Use Status: Former Tobacco user alcohol intake: current Alcohol intake frequency: holidays/special occasions only Coding Level of Care Code Est Patient Level 1 Diagnoses Current use of anticoagulant therapy Z79.01 Assessment & Plan Assessment & Plan (1) Current use of anticoagulant therapy: Comment: On Coumadin for mechanical aortic valve. INR target is 2-3. Code(s): Z79.01 - custodial (current) use of anticoagulants Category: Medical Medications: Changed From warfarin (Juntoven) See Protocol TAKE 1 TABLET ON SATURDAY, SATURDAY, AND SATURDAY AND 1 AND 1/2 TABLETS ON ALL OTHER 4 DAYS. SUBJECT TO DOSAGE INCREASE BASED ON INTERNATIONAL NORMALIZED RATIO RESULTS 117 tabs 3RF To warfarin (Juntoven) See Protocol TAKE 1 TABLET ON SATURDAY, and 1 AND 1/2 TABLETS ON ALL OTHER 6 DAYS. SUBJECT TO DOSAGE INCREASE BASED ON INTERNATIONAL NORMALIZED RATIO RESULTS 117 tabs 3RF
[2024-11-25 10:17] LABS: Prothrombin Time Whole Bld POC 26.9 sec (11.1-13.5); ~PT, ~INR - Anti Coag Clinic 2.2 (0.9-1.1)
== END 2024-11-25 10:25 | disposition home or self-care (01) ==
LOC: HO.ACS 10:04
PROVIDERS: PCP Internal Medicine; Visit Provider Internal Medicine Medical Oncology
DX: Z79.01 Long term (current) use of anticoagulants (principal)

== ENCOUNTER → 2024-11-25 10:04 | Outpatient (BNVA) | payer MEDICARE, SELFPAY | PROVIDERS: PCP Internal Medicine; Visit Provider Internal Medicine Medical Oncology | DX: Z95.2 Presence of prosthetic heart valve (principal); Z79.01 Long term (current) use of anticoagulants; Z51.81 Encounter for therapeutic drug level monitoring | CPT/HCPCS: 85610; 99211 ==

== ENCOUNTER 2024-11-27 10:30 | Outpatient (REF) | payer MEDICARE, SELFPAY ==
[2024-11-27 10:59] LABS: MANUAL DIFF FLAG NO
[2024-11-27 13:55] LABS: Creatinine Urine 203.72 mg/dL; Microalbum/Creatinine Ratio Ur 13.2 ug/mg cr (<30)
[2024-11-27 14:10] LABS: Estimated Average Glucose 111 mg/dL; Hemoglobin A1c % 5.5 % (<6.0); Total Hemoglobin (HGBA1C) 3383.8545 umol/L
[2024-11-27 14:21] LABS: Alanine Aminotransferase 23 U/L (0-31); Albumin Level 4.1 g/dL (3.5-5.0); Alkaline Phosphatase 99 U/L (39-117); Anion Gap 13 (12-20); Aspartate Amino Transferase 31 U/L (5-31); Bilirubin Total 0.4 mg/dL (0.0-1.0); Blood Urea Nitrogen 15 mg/dL (9-16); Calcium 9.9 mg/dL (8.4-10.2); Carbon Dioxide 26 mmol/L (22-29); Chloride 105 mmol/L (96-108); Cholesterol 153 mg/dL (<200); Estimated Glomerular Filt Rate > 60; Glucose Fasting 100 mg/dL (60-99); HDL Cholesterol 44 mg/dL (>40); LDL Cholesterol Calculated 80 mg/dL (<100); Potassium 3.8 mmol/L (3.3-5.1); Sodium 140 mmol/L (135-145); Total Protein 7.3 g/dL (6.5-8.0); Triglycerides 149 mg/dL (<150)
[2024-11-27 14:28] LABS: Basophils Percent Auto 0.5 % (0-2); Eosinophils Absolute Auto 0.2 X10*3/uL (0.0-0.4); Eosinophils Percent Auto 1.7 % (0-4); Hematocrit 38.6 % (37.0-47.0); Imm Gran Abs Auto 0.02 X10*3/uL (0.00-0.03); Imm Gran Pct Auto 0.2 % (0.0-0.4); Lymphocytes Absolute Auto 2.3 X10*3/uL (1.2-4.9); Lymphocytes Percent Auto 26.1 % (20-40); Mean Corpuscular HGB Conc 33.7 g/dl (31.0-35.0); Mean Corpuscular Hemoglobin 27.8 pg (27.0-33.0); Mean Corpuscular Volume 82.7 fL (80.0-98.0); Mean Platelet Volume 9.7 fL (9.4-12.3); Monocytes Absolute Auto 0.7 X10*3/uL (0.1-1.2); Monocytes Percent Auto 7.7 % (2-11); Neutrophils Absolute Auto 5.6 x10*3/uL (2.0-8.3); Neutrophils Percent Auto 63.8 % (45-73); Platelet Count 332 X10*3/uL (160-400); Red Blood Count 4.67 X10*6/uL (4.20-5.50); Red Cell Distribution Width 14.1 % (11.0-16.0); White Blood Count 8.7 X10*3/uL (4.8-10.8)
== END 2024-11-27 10:31 | disposition home or self-care (01) ==
LOC: HO.HMGCLDS 10:30
PROVIDERS: PCP Internal Medicine; Visit Provider Internal Medicine
DX: E87.6 Hypokalemia (principal); R73.9 Hyperglycemia, unspecified; E78.5 Hyperlipidemia, unspecified; I10 Essential (primary) hypertension
CPT/HCPCS: 36415; 80053; 80061; 82043; 82570; 83036; 85025

== ENCOUNTER 2024-12-01 08:41 | Outpatient (AMB) | payer MEDICARE, SELFPAY ==
--- NOTE | 2024-12-01 08:43 | A.OFFPC_ITS ---
Vital Signs 12/01/24 08:46 Height 5 ft 5 in Weight 235 lb BMI 39.1 BP 132/78 Blood Pressure Location Lt brachial Position Sitting Respiration 18 Pulse 96 Pulse Source Pulse Oximeter Temp 98.1 F Temp Source Oral Pulse Oximetry (%) 97 Oxygen Delivery Method Room Air Intake Visit Reasons: 3 months f/up Intake Note: Pt is here today for 3 months follow up visit. Allergies No Known Allergies Allergy (Verified 12/01/24 08:49) Medication List - Last Reconciled 12/01/24 by Lizzie Hummel MD acetaminophen (Tylenol Extra Strength) 1,000 mg PO Q6H cetirizine (Zyrtec) 10 mg PO DAILY PRN clopidogrel 75 mg PO DAILY furosemide 20 mg PO QAM 90 days guaifenesin ER (Mucinex) 600 mg PO BID PRN lisinopril 5 mg PO DAILY metoprolol tartrate 100 mg PO BID mv,Ca,min-folic acid-vit K1 400-20 mcg (One-A-Day Women's 50 Plus) 1 tab PO DAILY omeprazole 20 mg PO DAILY rosuvastatin 40 mg PO DAILY semaglutide (weight loss) (Wegovy) 2.4 mg (0.75 mL) subcut QWEEK warfarin (Jantoven) See Protocol TAKE 1 TABLET ON SATURDAY, and 1 AND 1/2 TABLETS ON ALL OTHER 6 DAYS. SUBJECT TO DOSAGE INCREASE BASED ON INTERNATIONAL NORMALIZED RATIO RESULTS Tobacco use date assessed: 12/01/24 Fall risk assessment: No Falls in past year Last assessed Fall Risk: 12/01/24 Dental Screening Dental Screen Date: 08/31/24 HPI 3 months f/up HPI Details Patient presents for the follow-up on hypertension hyperlipidemia hyperglycemia. Patient has been taking Wegovy 2.4 mg weekly and lost 10 lb in the last 3 months. She has been physically active and decreasing caloric intake [facility] Medical History Greater trochanteric pain syndrome Hyperglycemia Hyperparathyroidism Overweight Hyperlipidemia Annual physical exam Normal Pap smear Normal colonoscopy Mammogram normal Rodriguez esophagus FH: cholecystectomy Surgical History S/P cardiac catheterization History of cardiac cath Hx of cholecystectomy S/P AVR (aortic valve replacement) H/O colonoscopy Family History Mother CAD (coronary artery disease) PVD (peripheral vascular disease) Father Bladder cancer Brother CAD (coronary artery disease) PVD (peripheral vascular disease) Social History Household Members Other:: , 3 children, walks daily, retired, moved from [facility] 06/2019 Housing: House Alcohol intake: current Alcohol intake frequency: holidays/special occasions only Patient Tobacco Use Status: Former Tobacco user Years Smoked: Non-heavy smoker less than 1 year. Exposed to 2nd handsmoke growing up. e-Cigarette/Vaping Use: Never Used service: No Current occupational status: retired Cognitive needs: No Hearing needs: No Vision needs: Yes Questionnaire Thrive Questionnaire Date Thrive assessed: 08/24/24 I am a: Patient What is your living situation today?: I have a steady place to live Within the past 12 months, did the food you bought not last and you didn't have the money to get more?: Never true Within the past 12 months, did you worry whether your food would run out before you got money to buy more?: Never true Do you have trouble paying for medicines?: No Do you have trouble getting transportation to medical appointments?: No Do you have trouble paying your heating and electricity bill?: No Do you have trouble taking care of your child, family member or friend?: No Do you have trouble with day-to-day activities such as bathing, preparing meals, shopping, managing finances, etc.?: No Are you currently unemployed and looking for a job?: No Are you interested in more education?: No Please select the resources that you would like help with: None Currently or been in a relationship where the following occur: No concerns reported THRIVE Score: 0 EDUARDA-7 AMB Questionnaire EDUARDA-7 Date EDUARDA - 7 assessed: 08/31/24 Source: Developed by Drs. Hemanth Montana, Evita Gongora, Waqar Farrell and colleagues, with an educational jabier from [employer] Review of Systems Const All systems reviewed & are unremarkable except as noted in HPI and below Eyes Reports no additional complaints ENT Reports no additional complaints Card Reports no additional complaints Resp Reports no additional complaints GI Reports no additional complaints Reports no additional complaints Physical exam (Primary Care) Vital Signs: Last Vital Signs Temp 98.1 F 12/01/24 08:46 Pulse 96 12/01/24 08:46 Resp 18 12/01/24 08:46 BP 132/78 12/01/24 08:46 Pulse Ox 97 12/01/24 08:46 Oxygen Delivery Method Room Air 12/01/24 08:46 BMI result Body Mass Index 39.1 Tobacco/Smoking Status: Tobacco use Status Tobacco use date assessed 12/01/24 12/01/24 08:53 Patient Tobacco Use Status Former Tobacco user 12/01/24 08:44 e-Cigarette/Vaping Use Never Used 12/01/24 08:44 Thrive Assessment: Date of Thrive Assessment Date Thrive assessed 08/24/24 12/01/24 08:44 Currently or been in a relationship where the following occur: No concerns reported Const General: no acute distress HENMT Head: Yes normal to inspection Face and sinus: Yes normal facial exam Throat: Yes posterior oropharynx normal Eyes General: appearance normal, both eyes and all related structures Neck Neck: Yes no lymphadenopathy and Yes supple Resp Effort & Inspection: normal respiratory effort Auscultation: clear to auscultation bilaterally Cardio Rhythm: regular rhythm Heart sounds: S1 normal heart sound present and S2 normal heart sound present GI Inspection: Yes normal to inspection Palpation (GI): Soft to palpation Percussion: Yes normal to percussion Auscultation: normal bowel sounds Coding Level of Care Code Est Pt Level 4 (86545) Complex EM visit Add On G2211 Diagnoses HTN (hypertension) I10 Hyperglycemia R73.9 S/P AVR (aortic valve replacement) Z95.2 CAD (coronary artery disease) I25.10 Hyperlipidemia E78.5 Overweight E66.3 Assessment & Plan Assessment & Plan (1) HTN (hypertension): Code(s): I10 - Essential (primary) hypertension Category: Medical Plan: Continue current medications (2) Hyperglycemia: Code(s): R73.9 - Hyperglycemia, unspecified Category: Medical Plan: A1c is 5.5, continue ADA diet increase physical activity and weight loss (3) S/P AVR (aortic valve replacement): Comment: [facility] mechanical on Coumadin, 07/2015 Code(s): Z95.2 - Presence of prosthetic heart valve Category: Surgical Plan: On Coumadin follow-up with the clinic (4) CAD (coronary artery disease): Comment: s/p LAD GREGORY 05/30, f/u [facility] Cardiology Code(s): I25.10 - Atherosclerotic heart disease of [place] coronary artery without angina pectoris Category: Medical Plan: On Plavix beta dominick and high dose statin (5) Hyperlipidemia: Code(s): E78.5 - Hyperlipidemia, unspecified Category: Medical Plan: Continue crestor (6) Overweight: Code(s): E66.3 - Overweight Category: Medical Plan: Continue Wegovy decreasing caloric intake increasing physical activity, follow- up in 3 months Orders: Orders Lipid Panel 3 Months E55.9 - Vitamin D deficiency, unspecified, I10 - Essential (primary) hypertension, R73.9 - Hyperglycemia, unspecified Hemoglobin A1c 3 Months E55.9 - Vitamin D deficiency, unspecified, I10 - Essential (primary) hypertension, R73.9 - Hyperglycemia, unspecified [facility]. Panel Fast 3 Months E55.9 - Vitamin D deficiency, unspecified, I10 - Essential (primary) hypertension, R73.9 - Hyperglycemia, unspecified Complete Blood Count Auto Diff 3 Months E55.9 - Vitamin D deficiency, unspecified, I10 - Essential (primary) hypertension, R73.9 - Hyperglycemia, unspecified Vitamin D 25-OH Total 3 Months E55.9 - Vitamin D deficiency, unspecified, I10 - Essential (primary) hypertension, R73.9 - Hyperglycemia, unspecified
[2024-12-01 08:46] VITALS: BP 132/78; PULSE 96; RESP 18; TEMP 36.7; O2SAT 97; BMI 39.1
== END 2024-12-01 09:19 | disposition home or self-care (01) ==
LOC: HO.HMCC 08:42
PROVIDERS: PCP Internal Medicine; Visit Provider Internal Medicine
DX: I10 Essential (primary) hypertension (principal); R73.9 Hyperglycemia, unspecified; Z95.2 Presence of prosthetic heart valve; I25.10 Atherosclerotic heart disease of native coronary artery without angina pectoris; E78.5 Hyperlipidemia, unspecified; E66.3 Overweight

== ENCOUNTER → 2024-12-01 08:41 | Outpatient (BNVA) | payer MEDICARE, SELFPAY | PROVIDERS: PCP Internal Medicine; Visit Provider Internal Medicine | DX: I10 Essential (primary) hypertension (principal); E78.5 Hyperlipidemia, unspecified; R73.9 Hyperglycemia, unspecified; I25.10 Atherosclerotic heart disease of native coronary artery without angina pectoris; E66.3 Overweight; Z95.2 Presence of prosthetic heart valve; Z68.39 Body mass index [BMI] 39.0-39.9, adult | CPT/HCPCS: 99212 ==

== ENCOUNTER 2024-12-16 10:12 | Outpatient (AMB) | payer MEDICARE, SELFPAY ==
[2024-12-16 10:17] LABS: Prothrombin Time Whole Bld POC 23.2 sec (11.1-13.5); ~PT, ~INR - Anti Coag Clinic 1.9 (0.9-1.1)
--- NOTE | 2024-12-16 10:21 | MHC.OFFVISCO ---
Intake Intake Visit Reasons: Anticoagulation Allergies No Known Allergies Allergy (Verified 12/16/24 10:13) Medication List - Last Reconciled 12/16/24 by Nancy Matthews RN acetaminophen (Tylenol Extra Strength) 1,000 mg PO Q6H cetirizine (Zyrtec) 10 mg PO DAILY PRN clopidogrel 75 mg PO DAILY furosemide 20 mg PO QAM 90 days guaifenesin ER (Mucinex) 600 mg PO BID PRN lisinopril 5 mg PO DAILY metoprolol tartrate 100 mg PO BID mv,Ca,min-folic acid-vit K1 400-20 mcg (One-A-Day Women's 50 Plus) 1 tab PO DAILY omeprazole 20 mg PO DAILY rosuvastatin 40 mg PO DAILY semaglutide (weight loss) (Wevy) 2.4 mg (0.75 mL) subcut QWEEK warfarin (Junto) See Protocol TAKE 1 TABLET ON SATURDAY, and 1 AND 1/2 TABLETS ON ALL OTHER 6 DAYS. SUBJECT TO DOSAGE INCREASE BASED ON INTERNATIONAL NORMALIZED RATIO RESULTS Nursing Note NO CP,SOB,DIET/MED CHANGES,FALLS OR SX OF BLEEDING CONTINUE PRESENT DOSE AND FOLLOW-UP IN 4 WEEKS GOOD UNDERSTANDING OF DOSING INSTR. Anti-Coag Initial Assessment Social Hx Patient Tobacco Use Status: Former Tobacco user alcohol intake: current Alcohol intake frequency: holidays/special occasions only Coding Level of Care Code Est Patient Level 1 Diagnoses Current use of anticoagulant therapy Z79.01 Assessment & Plan Assessment & Plan (1) Current use of anticoagulant therapy: Comment: On Coumadin for mechanical aortic valve. INR target is 2-3. Code(s): Z79.01 - [facility] (current) use of anticoagulants Category: Medical
== END 2024-12-16 10:25 | disposition home or self-care (01) ==
LOC: HO.ACS 10:12
PROVIDERS: PCP Internal Medicine; Visit Provider Internal Medicine Medical Oncology
DX: Z79.01 Long term (current) use of anticoagulants (principal)

== ENCOUNTER → 2024-12-16 10:12 | Outpatient (BNVA) | payer MEDICARE, SELFPAY | PROVIDERS: PCP Internal Medicine; Visit Provider Internal Medicine Medical Oncology | DX: Z79.01 Long term (current) use of anticoagulants (principal) | CPT/HCPCS: 85610; 99211 ==

== ENCOUNTER 2025-01-13 10:10 | Outpatient (AMB) | payer MEDICARE, SELFPAY ==
[2025-01-13 10:15] LABS: Prothrombin Time Whole Bld POC 28.7 sec (11.1-13.5); ~PT, ~INR - Anti Coag Clinic 2.4 (0.9-1.1)
--- NOTE | 2025-01-13 10:20 | MHC.OFFVISCO ---
Intake Intake Visit Reasons: Anticoagulation Allergies No Known Allergies Allergy (Verified 01/13/25 10:11) Medication List - Last Reconciled 01/13/25 by Nancy Matthews, RN acetaminophen (Tylenol Extra Strength) 1,000 mg PO Q6H cetirizine (Zyrtec) 10 mg PO DAILY PRN clopidogrel 75 mg PO DAILY furosemide 20 mg PO QAM 90 days guaifenesin ER (Mucinex) 600 mg PO BID PRN lisinopril 5 mg PO DAILY metoprolol tartrate 100 mg PO BID mv,Ca,min-folic acid-vit K1 400-20 mcg (One-A-Day Women's 50 Plus) 1 tab PO DAILY omeprazole 20 mg PO DAILY rosuvastatin 40 mg PO DAILY semaglutide (weight loss) (Wevy) 2.4 mg (0.75 mL) subcut QWEEK warfarin (Junto) See Protocol TAKE 1 TABLET ON SATURDAY, and 1 AND 1/2 TABLETS ON ALL OTHER 6 DAYS. SUBJECT TO DOSAGE INCREASE BASED ON INTERNATIONAL NORMALIZED RATIO RESULTS Nursing Note NO CP,SOB,DIET/MED CHANGES,FALLS OR SX OF BLEEDING. CONTINUE PRESENT DOSE AND FOLLOW-UP IN 4 WEEKS GOOD UNDERSTANDING OF DOSING INSTR. Anti-Coag Initial Assessment Social Hx Patient Tobacco Use Status: Former Tobacco user alcohol intake: current Alcohol intake frequency: holidays/special occasions only Coding Level of Care Code Est Patient Level 1 Diagnoses Current use of anticoagulant therapy Z79.01 Assessment & Plan Assessment & Plan (1) Current use of anticoagulant therapy: Comment: On Coumadin for mechanical aortic valve. INR target is 2-3. 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
== END 2025-01-13 10:24 | disposition home or self-care (01) ==
LOC: HO.ACS 10:10
PROVIDERS: PCP Internal Medicine; Visit Provider Internal Medicine Medical Oncology
DX: Z79.01 Long term (current) use of anticoagulants (principal)

== ENCOUNTER → 2025-01-13 10:10 | Outpatient (BNVA) | payer MEDICARE, SELFPAY | PROVIDERS: PCP Internal Medicine; Visit Provider Internal Medicine Medical Oncology | DX: Z95.2 Presence of prosthetic heart valve (principal); Z51.81 Encounter for therapeutic drug level monitoring; Z79.01 Long term (current) use of anticoagulants | CPT/HCPCS: 85610; 99211 ==

== ENCOUNTER 2025-02-10 09:53 | Outpatient (AMB) | payer MEDICARE, SELFPAY ==
--- NOTE | 2025-02-10 09:59 | MHC.OFFVISCO ---
Intake Intake Visit Reasons: Anticoagulation Allergies No Known Allergies Allergy (Verified 02/10/25 09:55) Medication List - Last Reconciled 02/10/25 by Camilla Montes RN acetaminophen (Tylenol Extra Strength) 1,000 mg PO Q6H cetirizine (Zyrtec) 10 mg PO DAILY PRN clopidogrel 75 mg PO DAILY furosemide 20 mg PO QAM 90 days guaifenesin ER (Mucinex) 600 mg PO BID PRN lisinopril 5 mg PO DAILY metoprolol tartrate 100 mg PO BID mv,Ca,min-folic acid-vit K1 400-20 mcg (One-A-Day Women's 50 Plus) 1 tab PO DAILY omeprazole 20 mg PO DAILY rosuvastatin 40 mg PO DAILY semaglutide (weight loss) (Wevy) 2.4 mg (0.75 mL) subcut QWEEK warfarin () See Protocol TAKE 1 TABLET ON SATURDAY, and 1 AND 1/2 TABLETS ON ALL OTHER 6 DAYS. SUBJECT TO DOSAGE INCREASE BASED ON INTERNATIONAL NORMALIZED RATIO RESULTS Nursing Note INR: 2.9- in therapeutic range 2-3 Medications and supplements reviewed no changes No changes in health, diet, medications, or supplements, Denies any signs and symptoms of bleeding or bruising or clotting. Bleeding, bruising, clotting discussed Nutritional guidance given Dose: 5mg x 1. 7.5mg x 6 F/U INR: pt req 5 weeks due to travel Patient verbalizes understanding of instructions given Anti-Coag Initial Assessment Social Hx Patient Tobacco Use Status: Former Tobacco user alcohol intake: current Alcohol intake frequency: holidays/special occasions only Coding Level of Care Code Est Patient Level 1 Diagnoses Current use of anticoagulant therapy Z79.01 Assessment & Plan Assessment & Plan (1) Current use of anticoagulant therapy: Comment: On Coumadin for mechanical aortic valve. INR target is 2-3. Code(s): Z79.01 - nursing home (current) use of anticoagulants Category: Medical
[2025-02-10 10:00] LABS: Prothrombin Time Whole Bld POC 35.3 sec (11.1-13.5); ~PT, ~INR - Anti Coag Clinic 2.9 (0.9-1.1)
== END 2025-02-10 10:39 | disposition home or self-care (01) ==
LOC: HO.ACS 09:53
PROVIDERS: PCP Internal Medicine; Visit Provider Internal Medicine Medical Oncology
DX: Z79.01 Long term (current) use of anticoagulants (principal)

== ENCOUNTER → 2025-02-10 09:53 | Outpatient (BNVA) | payer MEDICARE, SELFPAY | PROVIDERS: PCP Internal Medicine; Visit Provider Internal Medicine Medical Oncology | DX: Z79.01 Long term (current) use of anticoagulants (principal) | CPT/HCPCS: 85610; 99211 ==

== ENCOUNTER 2025-03-15 12:42 | Outpatient (AMB) | payer MEDICARE, SELFPAY ==
--- NOTE | 2025-03-15 12:50 | A.OFFVIS_ITS ---
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 Accompanied by: Self / Same As Patient Allergies No Known Allergies Allergy (Verified 02/10/25 09:55) Medication List - Last Reconciled 03/15/25 by You Prince MD acetaminophen (Tylenol Extra Strength) 1,000 mg PO Q6H cetirizine (Zyrtec) 10 mg PO DAILY PRN clopidogrel 75 mg PO DAILY furosemide 20 mg PO QAM 90 days guaifenesin ER (Mucinex) 600 mg PO BID PRN lisinopril 5 mg PO DAILY metoprolol tartrate 100 mg PO BID mv,Ca,min-folic acid-vit K1 400-20 mcg (One-A-Day Women's 50 Plus) 1 tab PO DAILY omeprazole 20 mg PO DAILY rosuvastatin 40 mg PO DAILY semaglutide (weight loss) (Wegovy) 2.4 mg (0.75 mL) subcut QWEEK warfarin (Jantoven) See Protocol TAKE 1 TABLET ON SATURDAY, and 1 AND 1/2 TABLETS ON ALL OTHER 6 DAYS. SUBJECT TO DOSAGE INCREASE BASED ON INTERNATIONAL NORMALIZED RATIO RESULTS HPI Comments Details: 69-year-old female with background history of coronary artery disease with single-vessel PCI as well as severe aortic stenosis for which she underwent mechanical aortic valve replacement 2015 at [facility] in [facility]. She said she was following with her safety relief valve technician near [place] regularly and was doing well. Recently she moved to this area to live close to family. Old records reviewed. In August 2013 she had 2 episodes of left arm and chest pain. She had moderate aortic stenosis at that time. She underwent stress testing which showed transient ischemic dilatation. Subsequent to that she underwent cardiac catheterization which confirmed moderate aortic stenosis on showed ostial right coronary artery stenosis which was treated with bare metal stent. She also in a mid LAD lesion which was thought to be intermediate but no FFR was performed. In July 2015 she had echocardiography which showed severe aortic stenosis and she underwent aortic valve replacement with 19 mm [employer] medical mechanical aortic valve. 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 On last visit she was complaining of shortness of breath. After discussion she was sent for echocardiography. Initially we decided to a stress test but because she has dyspnea on exertion with her coronary disease in the past we decided to a cardiac catheterization. Cardiac catheterization showed mid LAD 90% stenosis which was treated with drug-eluting stent. A 3 x 18 tabby resolute drug-eluting stent was placed. Echo showed normal LV systolic function with moderate left ventricular hypertrophy. Filling pressures were indeterminate. Aortic valve had high velocities of 3.49 m/sec with aortic valve area 1.29 cm2. Findings were consistent with her known diagnosis of patient prosthesis mismatch. After cardiac catheterization her symptoms have improved completely. She is here for follow-up today and has been walking and is back to her baseline. No bleeding issues. Continues to be stable on follow-up without any significant issues. No bleeding concerns. 12/17/22: She returns for follow-up. She has been taking medication regularly. Her blood pressure control is good. She is complaining of some dyspnea specially when she is going up stairs. She has knee arthritis and feels limited by pain. No orthopnea or PND. She has mild peripheral edema and is currently using 10 mg of Lasix daily. She is on Coumadin for mechanical aortic valve in the past. 04/22/2023: She returns for follow-up. She has been doing well and has been physically active. No chest discomfort shortness of breath. As mentioned above dyspnea is her anginal equivalent. No bleeding concerns. She is taking Plavix and Coumadin. She has a mechanical aortic valve. 10/23/23: She returns for follow-up. She has been doing well. She is returned from [place] after 2 week vacation. She walked a lot and had no symptoms. In particular no chest pain or shortness of breath. Blood pressure is well controlled. She is taking Coumadin and Plavix and has no bleeding concerns. 04/27/2024: She is here for follow-up. She has been doing well. She is planning to go for vacation to [facility]. Clinically she has no symptoms. No bleeding concerns. 10/19/2024: Here for follow-up. Denying any chest discomfort or shortness of breath. She has been active and has no exertional symptoms. Taking medication regularly without any bleeding concerns. 03/15/2025: She is here for follow-up. She has history of patient prosthesis mismatch. She continues to be asymptomatic and has no chest discomfort or significant shortness of breath. Tolerating medications without any bleeding concerns currently. Blood pressure well controlled. [facility] Medical History Greater trochanteric pain syndrome Hyperglycemia Hyperparathyroidism Overweight Hyperlipidemia Annual physical exam Normal Pap smear Normal colonoscopy Mammogram normal Rodriguez esophagus FH: cholecystectomy Surgical History S/P cardiac catheterization History of cardiac cath Hx of cholecystectomy S/P AVR (aortic valve replacement) H/O colonoscopy Family History Mother CAD (coronary artery disease) PVD (peripheral vascular disease) Father Bladder cancer Brother CAD (coronary artery disease) PVD (peripheral vascular disease) Social History Household Members Other:: , 3 children, walks daily, retired, moved from [facility] 06/2019 Housing: House Alcohol intake: current Alcohol intake frequency: holidays/special occasions only Patient Tobacco Use Status: Former Tobacco user Years Smoked: Non-heavy smoker less than 1 year. Exposed to 2nd handsmoke grow ing up. e-Cigarette/Vaping Use: Never Used service: No Current occupational status: retired Cognitive needs: No Hearing needs: No Vision needs: Yes Review of Systems Const Denies chills, Denies fatigue, Denies fever(s), Denies frequent falls, Denies weakness, Denies weight gain and Denies weight loss ENT Denies dizziness Card Denies chest pain, Denies leg edema, Denies lightheadedness, Denies palpitations, Denies dyspnea and Denies dyspnea on exertion Resp Denies cough, Denies dyspnea and Denies dyspnea on exertion GI Denies hematochezia Musc Denies abnormal gait, Denies muscle weakness, Denies numbness, Denies radiating pain into limb and Denies tingling Neuro Denies abnormal gait, Denies dizziness, Denies frequent falls, Denies numbness, Denies tingling and Denies weakness Endo Denies fatigue and Denies palpitations Physical Exam Vital Signs: Last Vital Signs Pulse 84 03/15/25 12:52 BP 132/64 03/15/25 12:52 BMI result Body Mass Index 38.4 GENERAL APPEARANCE: in no acute distress. NECK/THYROID: no carotid bruit, no jugular venous distention. SKIN: no suspicious lesions, warm and dry. HEART: systolic murmur in aortic area, mechanical 2nd heart sound. LUNGS: clear to auscultation bilaterally. ABDOMEN: normal, bowel sounds present, soft, nontender, nondistended. EXTREMITIES: Trace edema. PERIPHERAL PULSES: equal. NEUROLOGIC: nonfocal, alert and oriented. PSYCH: mood/affect full range. Assessment & Plan Assessment & Plan (1) S/P AVR (aortic valve replacement): Comment: [facility] [facility] mechanical on Coumadin, 07/2015 Code(s): Z95.2 - Presence of prosthetic heart valve Category: Surgical (2) PRIETO (dyspnea on exertion): Code(s): R06.00 - Dyspnea, unspecified Category: Medical (3) CAD (coronary artery disease): Comment: s/p LAD GREGORY 05/30, f/u [facility] Cardiology Code(s): I25.10 - Atherosclerotic heart disease of [place] coronary artery without angina pectoris Category: Medical Plan 69-year-old female who is here for follow-up. She has known history of mechanical aortic valve replacement in the past and coronary artery disease. Clinically not in heart failure. Blood pressure is well controlled. She is on Coumadin and Plavix currently. She has patient prosthesis mismatch. Last echocardiogram was in July of 2022 when peak velocity across the aortic valve was 3.64 m/sec, mean gradient 28, aortic valve area 1.1 cm2. We will repeat the echocardiogram and reassess the aortic valve. Follow-up in 4-6 months. Thank you for allowing me to participate in the care of your patient. Please feel free to contact me if you have any questions. Orders: Orders CA echo transthoracic complete Today Z95.2 - Presence of prosthetic heart valve Coding Level of Care Code Est Pt Level 4 (10451) Diagnoses S/P AVR (aortic valve replacement) Z95.2 PRIETO (dyspnea on exertion) R06.00 CAD (coronary artery disease) I25.10
[2025-03-15 12:52] VITALS: BP 132/64; PULSE 84; BMI 38.4
== END 2025-03-15 13:10 | disposition home or self-care (01) ==
LOC: HO.HCS 12:43
PROVIDERS: PCP Internal Medicine; Visit Provider Internal Medicine Cardiovascular Disease
DX: Z95.2 Presence of prosthetic heart valve (principal); R06.00 Dyspnea, unspecified; I25.10 Atherosclerotic heart disease of native coronary artery without angina pectoris
CPT/HCPCS: 99214

== ENCOUNTER → 2025-03-15 12:42 | Outpatient (BNVA) | payer MEDICARE, SELFPAY | PROVIDERS: PCP Internal Medicine; Visit Provider Internal Medicine Cardiovascular Disease | DX: I25.10 Atherosclerotic heart disease of native coronary artery without angina pectoris (principal); R06.09 Other forms of dyspnea; Z95.2 Presence of prosthetic heart valve | CPT/HCPCS: 99212 ==

== ENCOUNTER 2025-03-17 10:05 | Outpatient (AMB) | payer MEDICARE, SELFPAY ==
--- NOTE | 2025-03-17 10:19 | MHC.OFFVISCO ---
Intake Intake Visit Reasons: Anticoagulation Allergies No Known Allergies Allergy (Verified 03/17/25 10:15) Medication List - Last Reconciled 03/17/25 by Camilla Montes RN acetaminophen (Tylenol Extra Strength) 1,000 mg PO Q6H cetirizine (Zyrtec) 10 mg PO DAILY PRN clopidogrel 75 mg PO DAILY furosemide 20 mg PO QAM 90 days guaifenesin ER (Mucinex) 600 mg PO BID PRN lisinopril 5 mg PO DAILY metoprolol tartrate 100 mg PO BID mv,Ca,min-folic acid-vit K1 400-20 mcg (One-A-Day Women's 50 Plus) 1 tab PO DAILY omeprazole 20 mg PO DAILY rosuvastatin 40 mg PO DAILY semaglutide (weight loss) (Wegovy) 2.4 mg (0.75 mL) subcut QWEEK warfarin (Junto) See Protocol TAKE 1 TABLET ON SATURDAY, and 1 AND 1/2 TABLETS ON ALL OTHER 6 DAYS. SUBJECT TO DOSAGE INCREASE BASED ON INTERNATIONAL NORMALIZED RATIO RESULTS Nursing Note INR: 2.4- in therapeutic range 2-3 Medications and supplements reviewed- no changes No changes in health, diet, medications, or supplements, Denies any signs and symptoms of bleeding or bruising or clotting. Bleeding, bruising, clotting discussed Nutritional guidance given Dose: 5mg x 1. 7.5mg x 6 F/U INR: 4 weeks Patient verbalizes understanding of instructions given pt states having moh's proc on nose 08/18/25 with plastic surg appt proc 08/19/25- will ask provider about holding warfarin prior to proc Anti-Coag Initial Assessment Social Hx Patient Tobacco Use Status: Former Tobacco user alcohol intake: current Alcohol intake frequency: holidays/special occasions only Coding Level of Care Code Est Patient Level 1 Diagnoses Current use of anticoagulant therapy Z79.01 Assessment & Plan Assessment & Plan (1) Current use of anticoagulant therapy: Comment: On Coumadin for mechanical aortic valve. INR target is 2-3. 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
[2025-03-17 10:20] LABS: Prothrombin Time Whole Bld POC 29.4 sec (11.1-13.5); ~PT, ~INR - Anti Coag Clinic 2.4 (0.9-1.1)
== END 2025-03-17 10:31 | disposition home or self-care (01) ==
LOC: HO.ACS 10:05
PROVIDERS: PCP Internal Medicine; Visit Provider Internal Medicine Medical Oncology
DX: Z79.01 Long term (current) use of anticoagulants (principal)

== ENCOUNTER → 2025-03-17 10:05 | Outpatient (BNVA) | payer MEDICARE, SELFPAY | PROVIDERS: PCP Internal Medicine; Visit Provider Internal Medicine Medical Oncology | DX: Z95.2 Presence of prosthetic heart valve (principal); Z79.01 Long term (current) use of anticoagulants; Z51.81 Encounter for therapeutic drug level monitoring | CPT/HCPCS: 85610; 99211 ==

== ENCOUNTER 2025-03-26 10:51 | Outpatient (REF) | payer MEDICARE, SELFPAY ==
[2025-03-26 12:59] LABS: MANUAL DIFF FLAG NO
[2025-03-26 13:55] LABS: Hematocrit 42.4 % (37.0-47.0); Hemoglobin 13.7 g/dl (12.0-16.0); Imm Gran Abs Auto 0.04 X10*3/uL (0.00-0.03); Imm Gran Pct Auto 0.5 % (0.0-0.4); Lymphocytes Absolute Auto 2.3 X10*3/uL (1.2-4.9); Mean Corpuscular HGB Conc 32.3 g/dl (31.0-35.0); Mean Corpuscular Hemoglobin 27.5 pg (27.0-33.0); Mean Corpuscular Volume 85.0 fL (80.0-98.0); NRBC Abs Auto 0.000 X10*3/uL (0.0-0.012); NRBC Pct Auto 0.0 /100WBC (0.0-0.2); Platelet Count 356 X10*3/uL (160-400); Red Blood Count 4.99 X10*6/uL (4.20-5.50); White Blood Count 8.9 X10*3/uL (4.8-10.8)
[2025-03-26 17:13] LABS: Alanine Aminotransferase 27 U/L (0-31); Albumin Level 4.4 g/dL (3.5-5.0); Alkaline Phosphatase 123 U/L (39-117); Anion Gap 16 (12-20); Aspartate Amino Transferase 36 U/L (5-31); Blood Urea Nitrogen 16 mg/dL (9-16); Calcium 9.6 mg/dL (8.4-10.2); Carbon Dioxide 23 mmol/L (22-29); Chloride 104 mmol/L (96-108); Cholesterol 176 mg/dL (<200); Estimated Glomerular Filt Rate > 60; HDL Cholesterol 48 mg/dL (>40); Potassium 4.3 mmol/L (3.3-5.1); Sodium 139 mmol/L (135-145); Total Protein 7.9 g/dL (6.5-8.0); Triglycerides 214 mg/dL (<150)
== END 2025-03-26 10:52 | disposition home or self-care (01) ==
LOC: HO.HMGCLDS 10:51
PROVIDERS: PCP Internal Medicine; Visit Provider Internal Medicine
DX: I10 Essential (primary) hypertension (principal); E55.9 Vitamin D deficiency, unspecified; R73.9 Hyperglycemia, unspecified
CPT/HCPCS: 36415; 80053; 80061; 82306; 83036; 85025

== ENCOUNTER 2025-03-31 08:14 | Outpatient (AMB) | payer MEDICARE, SELFPAY ==
[2025-03-31 08:18] VITALS: BP 118/72; PULSE 89; RESP 16; TEMP 36.4; O2SAT 98; BMI 37.9
--- NOTE | 2025-03-31 08:18 | MHC.PC.OV ---
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: No Accompanied by: Self / Same As Patient Allergies No Known Allergies Allergy (Verified 03/31/25 08:18) Medication List - Last Reconciled 03/31/25 by Lizzie Hummel MD acetaminophen (Tylenol Extra Strength) 1,000 mg PO Q6H cetirizine (Zyrtec) 10 mg PO DAILY PRN clopidogrel 75 mg PO DAILY furosemide 20 mg PO QAM 90 days guaifenesin ER (Mucinex) 600 mg PO BID PRN lisinopril 5 mg PO DAILY metoprolol tartrate 100 mg PO BID mv,Ca,min-folic acid-vit K1 400-20 mcg (One-A-Day Women's 50 Plus) 1 tab PO DAILY omeprazole 20 mg PO DAILY rosuvastatin 40 mg PO DAILY semaglutide (weight loss) (Wegovy) 2.4 mg (0.75 mL) subcut QWEEK warfarin (Jantoven) See Protocol TAKE 1 TABLET ON SATURDAY, and 1 AND 1/2 TABLETS ON ALL OTHER 6 DAYS. SUBJECT TO DOSAGE INCREASE BASED ON INTERNATIONAL NORMALIZED RATIO RESULTS Tobacco use date assessed: 03/31/25 Fall risk assessment: No Falls in past year Last assessed Fall Risk: 03/31/25 Dental Screening Dental Screen Date: 03/31/25 Did you have a dental visit in the last 12 months?: No Did you have a dental problem in the last 6 months where you did not have access to dental care?: No Was dental information given to patient?: Patient has dentist HPI PE HPI Details Patient presents for a physical. She lost 44 lb on Wegovy and has been exercising regularly and eating smaller meals, tolerating medication well. [facility] Medical History Greater trochanteric pain syndrome Hyperglycemia Hyperparathyroidism Overweight Hyperlipidemia Annual physical exam Normal Pap smear Normal colonoscopy Mammogram normal Rodriguez esophagus FH: cholecystectomy Surgical History (Updated 03/31/25 @ 09:05 by Lizzie Hummel MD) S/P cardiac catheterization History of cardiac cath Hx of cholecystectomy S/P AVR (aortic valve replacement) H/O colonoscopy Family History Mother CAD (coronary artery disease) PVD (peripheral vascular disease) Father Bladder cancer Brother CAD (coronary artery disease) PVD (peripheral vascular disease) Social History Household Members Other:: , 3 children, walks daily, retired, moved from [facility] 06/2019 Housing: House Alcohol intake: current Alcohol intake frequency: holidays/special occasions only Patient Tobacco Use Status: Former Tobacco user Years Smoked: Non-heavy smoker less than 1 year. Exposed to 2nd handsmoke growing up. e-Cigarette/Vaping Use: Never Used service: No Current occupational status: retired Cognitive needs: No Hearing needs: No Vision needs: Yes Questionnaire PHQ-9 Over the last 2 weeks, how often have you been bothered by any of the following problems? 1. Little interest or pleasure in doing things: not at all 2. Feeling down, depressed, or hopeless: not at all 3. Trouble falling or staying asleep, or sleeping too much: not at all 4. Feeling tired or having little energy: not at all 5. Poor appetite or overeating: not at all 6. Feeling bad about yourself - or that you are a failure or have let yourself or your family down: not at all 7. Trouble concentrating on things, such as reading the newspaper or watching television: not at all 8. Moving or speaking so slowly that other people could have noticed. Or the opposite - being so fidgety or restless that you have been moving around a lot more than usual: not at all 9. Thoughts that you would be better off or of hurting yourself in some way: not at all Total score: 0 Depression Screening Interpretation: Negative Depression Screening Done: Yes 25788 - PHQ-9 Billing: Yes Source: Developed by Drs. Hemanth Montana, Evita Gongora, Waqar Farrell and colleagues, with an educational jabier from [employer]. Thrive Questionnaire Date Thrive assessed: 08/24/24 I am a: Patient What is your living situation today?: I have a steady place to live Within the past 12 months, did the food you bought not last and you didn't have the money to get more?: Never true Within the past 12 months, did you worry whether your food would run out before you got money to buy more?: Never true Do you have trouble paying for medicines?: No Do you have trouble getting transportation to medical appointments?: No Do you have trouble paying your heating and electricity bill?: No Do you have trouble taking care of your child, family member or friend?: No Do you have trouble with day-to-day activities such as bathing, preparing meals, shopping, managing finances, etc.?: No Are you currently unemployed and looking for a job?: No Are you interested in more education?: No Please select the resources that you would like help with: None Currently or been in a relationship where the following occur: No concerns reported THRIVE Score: 0 EDUARDA-7 AMB Questionnaire EDUARDA-7 Date EDUARDA - 7 assessed: 03/31/25 Feeling nervous, anxious, or on edge: 0 = Not at all Not being able to stop or control worryin = Not at all Worrying too much about different things: 0 = Not at all Trouble relaxin = Not at all Being so restless that it is hard to sit still: 0 = Not at all Becoming easily annoyed or irritable: 0 = Not at all Feeling afraid as if something awful might happen: 0 = Not at all Total EDUARDA-7 score (0-4 normal; 5-9 mild; 10-14 moderate; 15-21 severe): 0 Source: Developed by Drs. Hemanth Montana, Evita Gongora, Waqar Farrell and colleagues, with an educational jabier from [employer]. EDUARDA-7 Assessment Billing EDUARDA-7 Assessment Tool: EDUARDA-7 Assessment 79559 Review of Systems Const All systems reviewed & are unremarkable except as noted in HPI and below Eyes Reports no additional complaints ENT Reports no additional complaints Card Reports no additional complaints Resp Reports no additional complaints GI Reports no additional complaints Reports no additional complaints Physical exam (Primary Care) Vital Signs: Last Vital Signs Temp 97.5 F 03/31/25 08:18 Pulse 89 03/31/25 08:18 Resp 16 03/31/25 08:18 BP 118/72 03/31/25 08:18 Pulse Ox 98 03/31/25 08:18 BMI result Body Mass Index 37.9 Tobacco/Smoking Status: Tobacco use Status Tobacco use date assessed 03/31/25 03/31/25 08:23 Patient Tobacco Use Status Former Tobacco user 03/31/25 08:23 e-Cigarette/Vaping Use Never Used 03/31/25 08:23 PHQ-9: PHQ-9 Score PHQ-9: Total score 0 03/31/25 08:23 Depression Screening Interpretation: Negative Thrive Assessment: Date of Thrive Assessment Date Thrive assessed 08/24/24 03/31/25 08:23 Currently or been in a relationship where the following occur: No concerns reported Const General: no acute distress HENMT Head: Yes normal to inspection General nose exam: Normal external nose present Mouth: Normal oral and palatal mucosa present Eyes General: appearance normal, both eyes and all related structures Neck Neck: Yes no lymphadenopathy and Yes supple Resp Effort & Inspection: normal respiratory effort Auscultation: clear to auscultation bilaterally Cardio Rhythm: regular rhythm Heart sounds: S1 normal heart sound present and S2 normal heart sound present GI Inspection: Yes normal to inspection Palpation (GI): Soft to palpation Percussion: Yes normal to percussion Auscultation: normal bowel sounds Extrem General: Yes no clubbing, cyanosis or edema Coding Level of Care Code Est Pt Prev Care >65y(97769) Diagnoses HTN (hypertension) I10 S/P AVR (aortic valve replacement) Z95.2 Hyperlipidemia E78.5 Hyperparathyroidism E21.3 Obese E66.9 Annual physical exam Z00.00 Additional Codes EDUARDA-7 Assessment Billing - EDUARDA-7 Assessment Tool: EDUARDA-7 Assessment 76498 ([id number]) PHQ-9 - 74789 - PHQ-9 Billing: Yes ([id number]) Assessment & Plan Assessment & Plan (1) HTN (hypertension): Code(s): I10 - Essential (primary) hypertension Category: Medical Plan: Continue current medications (2) S/P AVR (aortic valve replacement): Comment: [facility] mechanical on Coumadin, 07/2015 Code(s): Z95.2 - Presence of prosthetic heart valve Category: Surgical Plan: Continue current medications follow-up with Cardiology (3) Hyperlipidemia: Code(s): E78.5 - Hyperlipidemia, unspecified Category: Medical Plan: Continue rosuvastatin and low-cholesterol diet (4) Hyperparathyroidism: Comment: f/u with Endo Code(s): E21.3 - Hyperparathyroidism, unspecified Category: Medical Plan: Follow-up with endocrinology (5) Obese: Comment: BMI 42.9 Code(s): E66.9 - Obesity, unspecified Category: Medical Plan: Continue Wegovy decreasing caloric intake and increasing physical activity , follow-up in 6 months with a fasting labs (6) Annual physical exam: Code(s): Z00.00 - Encounter for general adult medical examination without abnormal findings Category: Medical Plan: Well-balanced diet regular physical activity discussed with the patient she is up-to-date with the mammogram and colonoscopy Orders: Orders Lipid Panel 6 Months E55.9 - Vitamin D deficiency, unspecified, E78.5 - Hyperlipidemia, unspecified, I10 - Essential (primary) hypertension, R73.9 - Hyperglycemia, unspecified Hemoglobin A1c 6 Months E55.9 - Vitamin D deficiency, unspecified, E78.5 - Hyperlipidemia, unspecified, I10 - Essential (primary) hypertension, R73.9 - Hyperglycemia, unspecified Comprehensive [place]. Panel Fast 6 Months E55.9 - Vitamin D deficiency, unspecified, E78.5 - Hyperlipidemia, unspecified, I10 - Essential (primary) hypertension, R73.9 - Hyperglycemia, unspecified Complete Blood Count Auto Diff 6 Months E55.9 - Vitamin D deficiency, unspecified, E78.5 - Hyperlipidemia, unspecified, I10 - Essential (primary) hypertension, R73.9 - Hyperglycemia, unspecified TSH reflex Free T4 6 Months E55.9 - Vitamin D deficiency, unspecified, E78.5 - Hyperlipidemia, unspecified, I10 - Essential (primary) hypertension, R73.9 - Hyperglycemia, unspecified Vitamin D 25-OH Total 6 Months E55.9 - Vitamin D deficiency, unspecified, E78.5 - Hyperlipidemia, unspecified, I10 - Essential (primary) hypertension, R73.9 - Hyperglycemia, unspecified
== END 2025-03-31 09:12 | disposition home or self-care (01) ==
LOC: HO.HMCC 08:15
PROVIDERS: PCP Internal Medicine; Visit Provider Internal Medicine
DX: Z00.00 Encounter for general adult medical examination without abnormal findings (principal); I10 Essential (primary) hypertension; E66.9 Obesity, unspecified; Z68.37 Body mass index [BMI] 37.0-37.9, adult; Z95.2 Presence of prosthetic heart valve; E78.5 Hyperlipidemia, unspecified; E21.3 Hyperparathyroidism, unspecified

== ENCOUNTER → 2025-03-31 08:14 | Outpatient (BNVA) | payer MEDICARE, SELFPAY | PROVIDERS: PCP Internal Medicine; Visit Provider Internal Medicine | DX: Z00.00 Encounter for general adult medical examination without abnormal findings (principal); I10 Essential (primary) hypertension; E78.5 Hyperlipidemia, unspecified; E21.3 Hyperparathyroidism, unspecified; E66.9 Obesity, unspecified; Z95.2 Presence of prosthetic heart valve; Z68.37 Body mass index [BMI] 37.0-37.9, adult | CPT/HCPCS: 96127; 99397 ==

== ENCOUNTER 2025-04-14 08:42 | Outpatient (REF) | payer MEDICARE, SELFPAY | END 2025-04-14 08:43 | disposition home or self-care (01) | LOC: HO.MAMMO 08:42 | PROVIDERS: PCP Internal Medicine; Visit Provider Internal Medicine | DX: Z12.31 Encounter for screening mammogram for malignant neoplasm of breast (principal); Z51.81 Encounter for therapeutic drug level monitoring | CPT/HCPCS: 77063; 77067; 85610; 99211 ==

== ENCOUNTER → 2025-04-14 09:00 | Outpatient (BNV) | payer MEDICARE, SELFPAY | PROVIDERS: PCP Internal Medicine; Visit Provider Radiology Body Imaging | DX: Z12.31 Encounter for screening mammogram for malignant neoplasm of breast (principal) | CPT/HCPCS: 77063; 77067 ==

== ENCOUNTER 2025-04-14 09:56 | Outpatient (AMB) | payer MEDICARE, SELFPAY ==
--- NOTE | 2025-04-14 10:13 | MHC.OFFVISCO ---
Intake Intake Visit Reasons: Anticoagulation Allergies No Known Allergies Allergy (Verified 04/14/25 10:00) Medication List - Last Reconciled 04/14/25 by Nancy Matthews RN acetaminophen (Tylenol Extra Strength) 1,000 mg PO Q6H cetirizine (Zyrtec) 10 mg PO DAILY PRN clopidogrel 75 mg PO DAILY furosemide 20 mg PO QAM 90 days guaifenesin ER (Mucinex) 600 mg PO BID PRN lisinopril 5 mg PO DAILY metoprolol tartrate 100 mg PO BID mv,Ca,min-folic acid-vit K1 400-20 mcg (One-A-Day Women's 50 Plus) 1 tab PO DAILY omeprazole 20 mg PO DAILY rosuvastatin 40 mg PO DAILY semaglutide (weight loss) (Wevy) 2.4 mg (0.75 mL) subcut QWEEK warfarin () See Protocol TAKE 1 TABLET ON SATURDAY, and 1 AND 1/2 TABLETS ON ALL OTHER 6 DAYS. SUBJECT TO DOSAGE INCREASE BASED ON INTERNATIONAL NORMALIZED RATIO RESULTS Nursing Note NO CP,SOB,DIET/MED CHANGES,FALLS OR SX OF BLEEDING. CONTINUE PRESENT DOSE AND FOLLOW-UP IN 4 WEEKS GOOD UNDERSTANDING OF DOSING INSTR. Anti-Coag Initial Assessment Social Hx Patient Tobacco Use Status: Former Tobacco user alcohol intake: current Alcohol intake frequency: holidays/special occasions only Coding Level of Care Code Est Patient Level 1 Diagnoses Current use of anticoagulant therapy Z79.01 Results AMB INR Fingerstick AMB INR Fingerstick 2.0 Last Edit by Nancy Matthews RN on 04/14/25 10:09 Assessment & Plan Assessment & Plan (1) Current use of anticoagulant therapy: Comment: On Coumadin for mechanical aortic valve. INR target is 2-3. Code(s): Z79.01 - senior care (current) use of anticoagulants Category: Medical
[2025-04-14 10:15] LABS: Prothrombin Time Whole Bld POC 23.7 sec (11.1-13.5); ~PT, ~INR - Anti Coag Clinic 2.0 (0.9-1.1)
== END 2025-04-14 10:15 | disposition home or self-care (01) ==
PROVIDERS: PCP Internal Medicine; Visit Provider Internal Medicine Medical Oncology
DX: Z79.01 Long term (current) use of anticoagulants (principal)

== ENCOUNTER → 2025-04-16 09:42 | Outpatient (REF) | payer MEDICARE, SELFPAY ==
--- NOTE | 2025-04-16 09:45 | CA_ITS ---
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 There is moderately increased left ventricular wall thickness. The visually estimated ejection fraction is between 60-65%. - Normal right ventricular cavity size and systolic function. - The left atrium is mildly dilated. - A mechanical prosthetic aortic valve is present. The peak aortic velocity is 3.56 m/s. The mean gradient is 30 mmHg. The aortic valve area is 1.08 cm2. There is no aortic valve regurgitation. Known to have patient prosthesis mismatch. Findings Left Ventricle Normal left ventricular size and systolic function. There is moderately increased left ventricular wall thickness. The visually estimated ejection fraction is between 60-65%. There is no evidence of regional wall motion abnormalities. Diastolic function is indeterminate on the basis of available data. Right Ventricle Normal right ventricular cavity size and systolic function. Atria The left atrium is mildly dilated. The right atrium is mildly dilated. Aortic Valve A mechanical prosthetic aortic valve is present. The peak aortic velocity is 3.56 m/s. The mean gradient is 30 mmHg. The aortic valve area is 1.08 cm2. There is no aortic valve regurgitation. Known to have patient prosthesis mismatch. Mitral Valve There is severe mitral annular calcification. There is no mitral valve regurgitation. There is no mitral valve stenosis. Pulmonic Valve The pulmonic valve is likely normal. Tricuspid Valve Normal tricuspid valve structure. There is no tricuspid valve regurgitation. Normal right atrial pressure. There is no evidence of pulmonary hypertension. Great Vessels All visible segments of the aorta are normal in size. The visualized portions of the pulmonary artery and branches are normal. Venous The inferior vena cava is normal in size and collapses greater than 50% with inspiration. Pericardium/Pleural There is no evidence of pericardial effusion. Prior Study Comparison No significant change compared to prior study dated: 07/23/2022. Measurements 2D Linear Measurements IVSd: 1.45 0.6-0.9/0.6-1.0 cm LVIDd: 3.61 3.9-5.3/4.2-5.9 cm LVIDd Index: 1.74 2.4-3.2/2.2-3.1 cm/m2 LVIDs: 2.33 2.0-3.6 cm LVPWd: 1.42 0.7-1.1 cm Ao Root: 2.60 2.1-3.5 cm LA Diam: 4.10 2.7-3.8/3.0-4.0 cm LAIDs Index: 1.98 1.5-2.3 cm/m2 LV Mass: 234.05 67-162/88-224 g LV Mass Index: 113.07 43-95/49-115 g/m2 LVOT Diam: 1.90 3.0+(-)1.3 cm Mitral Valve MV VTI: 0.58 MV Pk Binu: 1.92 MV Mn Binu: 1.07 MV Pk Grad: 15.00 MV Mn Grad: 5.00 MV Pk E: 1.20 MV PK A: 1.93 MV Decel Time: 246.00 E/A: 0.60 E'Lateral: 4.35 E'Medial: 4.03 E/E' Med: 29.80 E/E' Lat: 27.60 PHT: 72.00 MVA PHT: 3.06 MVA Continuity: 1.49 Decel [place]: 4.88 Aortic Valve AoV Pk Binu: 3.56 AoV Mn Binu: 2.59 AoV VTI: 0.80 AoV Pk Grad: 51.00 Aov Mn Grad: 30.00 WILLI Cont.VTI: 1.08 LVOT LVOT Pk Binu: 1.26 LVOT Mn Binu: 0.93 LVOT VTI: 0.30 LVOT Pk Grad: 6.00 LVOT Mn Grad: 4.00 LVOT Diam: 1.90 LVOT Area: 2.84 Diastolic Function MV Pk E: 1.20 MV Pk A: 1.93 E/A: 0.60 E'Medial: 4.03 E/E' Med: 29.80 E' Laterial: 4.35 E/E' Lat: 27.60 Right Ventricle TAPSE (mm): 18.00 Tricuspid Valve TR Pk Binu: 2.75 TR Pk Grad: 30.00 RA Press: 3.00 RVSP: 33.00 Great Vessels Aorta Ao Root-2D: 2.60 2.0-3.7 cm Ao Asc: 3.10 2.1-3.4 cm Pulmonary Valve PV Pk Binu: 1.23 Peak PV Grad: 6.00 Updated in Other Vendor System with Status of Final You Prince MD electronically signed on 04/18/2025 1:55:30 PM with status of Final
== END ==
LOC: HO.CARD 09:42
PROVIDERS: PCP Internal Medicine; Visit Provider Internal Medicine Cardiovascular Disease
DX: Z95.2 Presence of prosthetic heart valve (principal)
CPT/HCPCS: 93306

== ENCOUNTER → 2025-04-16 09:45 | Outpatient (BNV) | payer MEDICARE, SELFPAY | PROVIDERS: PCP Internal Medicine; Visit Provider Internal Medicine Cardiovascular Disease | DX: I51.7 Cardiomegaly (principal); R93.1 Abnormal findings on diagnostic imaging of heart and coronary circulation | CPT/HCPCS: 93306 ==

== ENCOUNTER 2025-05-12 10:11 | Outpatient (AMB) | payer MEDICARE, SELFPAY ==
--- NOTE | 2025-05-12 10:16 | MHC.OFFVISCO ---
Intake Intake Visit Reasons: Anticoagulation Allergies No Known Allergies Allergy (Verified 05/12/25 10:11) Medication List - Last Reconciled 05/12/25 by Camilla Montes RN acetaminophen (Tylenol Extra Strength) 1,000 mg PO Q6H cetirizine (Zyrtec) 10 mg PO DAILY PRN clopidogrel 75 mg PO DAILY furosemide 20 mg PO QAM 90 days guaifenesin ER (Mucinex) 600 mg PO BID PRN lisinopril 5 mg PO DAILY metoprolol tartrate 100 mg PO BID mv,Ca,min-folic acid-vit K1 400-20 mcg (One-A-Day Women's 50 Plus) 1 tab PO DAILY omeprazole 20 mg PO DAILY rosuvastatin 40 mg PO DAILY semaglutide (weight loss) (Wegovy) 2.4 mg (0.75 mL) subcut QWEEK warfarin (Junto) See Protocol TAKE 1 TABLET ON SATURDAY, and 1 AND 1/2 TABLETS ON ALL OTHER 6 DAYS. SUBJECT TO DOSAGE INCREASE BASED ON INTERNATIONAL NORMALIZED RATIO RESULTS Nursing Note INR: 2.3- in therapeutic range 2-3 Medications and supplements reviewed- no changes No changes in health, diet, medications, or supplements, Denies any signs and symptoms of bleeding or bruising or clotting. Bleeding, bruising, clotting discussed Nutritional guidance given Dose: 7.5mg x 6, 5mg x 1 F/U INR: 4 weeks Patient verbalizes understanding of instructions given Anti-Coag Initial Assessment Social Hx Patient Tobacco Use Status: Former Tobacco user alcohol intake: current Alcohol intake frequency: holidays/special occasions only Coding Level of Care Code Est Patient Level 1 Diagnoses Current use of anticoagulant therapy Z79.01 Results AMB INR Fingerstick AMB INR Fingerstick 2.3 Last Edit by Camilla Montes RN on 05/12/25 10:18 interface delay Assessment & Plan Assessment & Plan (1) Current use of anticoagulant therapy: Comment: On Coumadin for mechanical aortic valve. INR target is 2-3. Code(s): Z79.01 - assisted (current) use of anticoagulants Category: Medical
[2025-05-12 10:18] LABS: Prothrombin Time Whole Bld POC 28.1 sec (11.1-13.5); ~PT, ~INR - Anti Coag Clinic 2.3 (0.9-1.1)
== END 2025-05-12 10:32 | disposition home or self-care (01) ==
LOC: HO.ACS 10:11
PROVIDERS: PCP Internal Medicine; Visit Provider Internal Medicine Medical Oncology
DX: Z79.01 Long term (current) use of anticoagulants (principal)

== ENCOUNTER → 2025-05-12 10:11 | Outpatient (BNVA) | payer MEDICARE, SELFPAY | PROVIDERS: PCP Internal Medicine; Visit Provider Internal Medicine Medical Oncology | DX: Z95.2 Presence of prosthetic heart valve (principal); Z79.01 Long term (current) use of anticoagulants; Z51.81 Encounter for therapeutic drug level monitoring | CPT/HCPCS: 85610; 99211 ==

== ENCOUNTER 2025-06-09 09:38 | Outpatient (AMB) | payer MEDICARE, SELFPAY ==
--- NOTE | 2025-06-09 09:51 | MHC.OFFVISCO ---
Intake Intake Visit Reasons: Anticoagulation Allergies No Known Allergies Allergy (Verified 06/09/25 09:47) Medication List - Last Reconciled 06/09/25 by Camilla Montes RN acetaminophen (Tylenol Extra Strength) 1,000 mg PO Q6H cetirizine (Zyrtec) 10 mg PO DAILY PRN clopidogrel 75 mg PO DAILY furosemide 20 mg PO QAM 90 days guaifenesin ER (Mucinex) 600 mg PO BID PRN lisinopril 5 mg PO DAILY metoprolol tartrate 100 mg PO BID mv,Ca,min-folic acid-vit K1 400-20 mcg (One-A-Day Women's 50 Plus) 1 tab PO DAILY omeprazole 20 mg PO DAILY rosuvastatin 40 mg PO DAILY semaglutide (weight loss) (Wegovy) 2.4 mg (0.75 mL) subcut QWEEK warfarin (Junto) See Protocol TAKE 1 TABLET ON SATURDAY, and 1 AND 1/2 TABLETS ON ALL OTHER 6 DAYS. SUBJECT TO DOSAGE INCREASE BASED ON INTERNATIONAL NORMALIZED RATIO RESULTS Nursing Note INR: 2.2- in therapeutic range of 2-3 Medications and supplements reviewed- no changes No changes in health, diet, medications, or supplements, Denies any signs and symptoms of bleeding or bruising or clotting. Bleeding, bruising, clotting discussed Nutritional guidance given Dose: 5mg x 1. 7.5mg x 6 F/U INR: 4 weeks Patient verbalizes understanding of instructions given Anti-Coag Initial Assessment Social Hx Patient Tobacco Use Status: Former Tobacco user alcohol intake: current Alcohol intake frequency: holidays/special occasions only Coding Level of Care Code Est Patient Level 1 Diagnoses Current use of anticoagulant therapy Z79.01 Results AMB INR Fingerstick AMB INR Fingerstick 2.2 Last Edit by Camilla Montes RN on 06/09/25 09:52 interface delay Assessment & Plan Assessment & Plan (1) Current use of anticoagulant therapy: Comment: On Coumadin for mechanical aortic valve. INR target is 2-3. Code(s): Z79.01 - intermediate (current) use of anticoagulants Category: Medical
[2025-06-09 10:05] LABS: Prothrombin Time Whole Bld POC 26.0 sec (11.1-13.5); ~PT, ~INR - Anti Coag Clinic 2.2 (0.9-1.1)
== END 2025-06-09 09:57 | disposition home or self-care (01) ==
LOC: HO.ACS 09:38
PROVIDERS: PCP Internal Medicine; Visit Provider Internal Medicine Medical Oncology
DX: Z79.01 Long term (current) use of anticoagulants (principal)

== ENCOUNTER → 2025-06-09 09:38 | Outpatient (BNVA) | payer MEDICARE, SELFPAY | PROVIDERS: PCP Internal Medicine; Visit Provider Internal Medicine Medical Oncology | DX: Z95.2 Presence of prosthetic heart valve (principal); Z51.81 Encounter for therapeutic drug level monitoring; Z79.01 Long term (current) use of anticoagulants | CPT/HCPCS: 85610; 99211 ==